=== PATIENT | female | born 1975 | race Caucasian/White ===

== ENCOUNTER → 2017-01-04 | Outpatient (CLI) | payer BC ==
--- NOTE | 2017-01-05 11:03 | MM ---
Reason for exam: screening (asymptomatic). Last mammogram was performed 1 year and 1 month ago. History: Took hormonal contraceptives for 1 year 6 months beginning at age 15. Physical Findings: A clinical breast exam by your physician is recommended on an annual basis and results should be correlated with mammographic findings. MG 3D Screening Mammo W/Cad Bilateral CC and MLO view(s) were taken. Prior study comparison: December 10, 2015, bilateral MG screening mammo w CAD. October 03, 2014, bilateral MG screening mammo w CAD. The breast tissue is heterogeneously dense. This may lower the sensitivity of mammography. There is no discrete abnormality. ASSESSMENT: Negative, BI-RAD 1 RECOMMENDATION: Routine screening mammogram of both breasts in 1 year.
== END | disposition home or self-care (01) ==
LOC: RADMAMWWP 09:25
PROVIDERS: ATTEND Obstetrics & Gynecology
DX: Z12.31 Encounter for screening mammogram for malignant neoplasm of breast (principal)
CPT/HCPCS: 77063; G0202

== ENCOUNTER → 2017-01-09 | Outpatient (CLI) | payer BC ==
--- NOTE | 2017-01-09 08:42 | MR ---
EXAMINATION TYPE: MR angio head wo con DATE OF EXAM: 01/09/2017 COMPARISON: NONE HISTORY: Moyamoya disease, syncope and collapse, headaches CONTRAST: None TECHNIQUE: Multiplanar multiecho imaging on a 3.0 Angela magnet is performed through the [place] of Jason lis. 3-D [id number] imaging is performed. Source images are reviewed on the computer in the axi al plane. Reconstructed images rotating on the computer are reviewed. FINDINGS: Vertebral arteries appear codominant. Vertebral basilar branching appears normal. There is some mild branching pattern of the left posterior cerebral artery. The right posterior cerebral artery is poorl y visualized. The more distal portions near the occipital region appear normal. The internal carotid arteries appear small. Left more so than the right. Ophthalmic arteries appear n ormal. The distal left internal carotid artery is not visualized. Small portion of the distal right i nternal carotid artery is present. There is small vessel branching pattern of the anterior cerebral v asculature along the base of the frontal lobes. The A2 segments visualized appear normal. Right dista l middle cerebral artery branches appear normal. Left middle cerebral artery branches are poorly visu alized. There is a puff of smoke appearance compatible with moyamoya disease in the base of the frontal lobes . Additionally, a small branching pattern at the left is posterior cerebral artery region near the ba benito ganglion is evident. A1 segments are not appreciated. A2 segments however appear normal. Proximal M1 segments are not visualized. Distal right M1 segment is poorly visualized. Distal left M1 segment is not visualized. There is a suggestion of some right superficial temporal artery prominence. Anterior and posterior communicating arteries are not identified. Three-D reconstructed images rotating on the computer are reviewed and demonstrate the attenuation of the [place] of Robertson vessels. IMPRESSIONS: 1. Attenuation of [place] of Robertson vessels especially through the internal carotid artery distributio n demonstrating a small vessel branching pattern, puff of smoke, typical for moyamoya disease.
--- NOTE | 2017-01-09 17:10 | MR ---
EXAMINATION TYPE: MR brain wo/w MRA neck wo/w con DATE OF EXAM: 01/09/2017 COMPARISON: NONE HISTORY: 41-year-old female with syncope and collapse, moyamoya disease. TECHNIQUE: Multiplanar, multisequence images of the brain and brainstem is performed without and with IV contras t, utilizing 20 mL mL intravenous MultiHance . Subsequent 2-D and 3-D [id number] imaging of the neck vasculature. Additional pre and postcontras t coronal sequences were acquired after 20 mL IV MultiHance administration. FINDINGS: BRAIN: Diffusion weighted images demonstrate no evidence of a recent infarct or other diffusion abnormality. There is no extra-axial fluid collection. T2/FLAIR weighted sequences show patchy in confluence deep white matter and subcortical bright signal down the bilateral frontal watershed zones, left greater than right. Additional chronic deep white m atter infarcts within the right jason radiata. Additional scattered foci of right white matter johnson e is present with a moderate overall burden. Encephalomalacia in the anterior left frontal lobe relat ed to prior infarct. Many of the flow voids are diminutive or not well-seen. The patient's MRA of the same day provides be tter evaluation of the intracranial vascularity. The ventricular system and cisternal spaces are normal in size and appearance. The brain volume is a ge appropriate. There is a extra-axial mass that shows T2 isointense signal but avid homogeneous postcontrast enhance ment along the left anterior clinoid and sphenoid process along the superior margin of the left gabrielle nous sinus. This measures 2.4 cm and demonstrates dural tails most suggestive of a meningioma. There is slight mass effect onto the adjacent brain parenchyma. No midline shift. No other abnormal intracr anial enhancement seen. Dural venous sinuses are patent. Midline structures demonstrate normal morphology. The craniocervical junction appears within normal limits. Trace mucosal thickening ethmoid air cells and right maxillary sinus. Leftward nasal septal deviation . Globes are intact. MRA NECK: There is conventional origin is a branching anatomy. The proximal arch appears aneurysmal at 4.2 cm. The origin of both vertebral arteries and the origin of the remaining arch vessels appear patent. The re is normal course and caliber of the vertebral arteries with codominant vessels. Both common carotid arteries are widely patent. There is minimal atherosclerotic irregularity in the proximal aspects of the bilateral carotid bulbs causing mild to moderate, approximately 50% vessel stenosis. This is best demonstrated on the postcon trast reconstructions. Of note, the bilateral ICAs are smaller in caliber than the vertebral arteries but otherwise remain grossly patent. COMBINED IMPRESSION: BRAIN: 1. A 2.4 cm avidly enhancing extra-axial mass along the left sphenoid process most suggestive of a me ningioma. There is slight mass effect onto the adjacent brain parenchyma. No midline shift. 2. Prior left greater than right frontal lobe watershed infarcts, focal left frontal lobe cortical in farct, deep white matter infarct on the right, and additional moderate scattered burden of chronic sm all vessel ischemic disease. 3. Diminutive flow voids. Intracranial vasculature is better described on the MRA of the same day. MRA NECK: 1. Compensatory enlargement of the bilateral vertebral arteries which are larger in caliber than the ICAs. 2. Borderline moderate, approximately 50% stenosis within the bilateral carotid bulbs is suggested, p articularly on the postcontrast reconstructions.
== END ==
LOC: RADMRIMAIN 06:37
PROVIDERS: ATTEND Psychiatry & Neurology Neurology
DX: G93.89 Other specified disorders of brain (principal); I63.9 Cerebral infarction, unspecified; I67.82 Cerebral ischemia; I65.23 Occlusion and stenosis of bilateral carotid arteries
CPT/HCPCS: 70544; 70549; 70553; A9577

== ENCOUNTER → 2018-01-26 | Outpatient (CLI) | payer BC ==
--- NOTE | 2018-01-30 12:42 | MM ---
Reason for exam: screening (asymptomatic). Last mammogram was performed 1 year and 1 month ago. History: Took hormonal contraceptives for 1 year 6 months beginning at age 15. Physical Findings: A clinical breast exam by your physician is recommended on an annual basis and results should be correlated with mammographic findings. MG 3D Screening Mammo W/Cad Bilateral CC and MLO view(s) were taken. Prior study comparison: January 04, 2017, bilateral MG 3d screening mammo w/cad. December 10, 2015, bilateral MG screening mammo w CAD. The breast tissue is heterogeneously dense. This may lower the sensitivity of mammography. No significant changes when compared with prior studies. ASSESSMENT: Benign, BI-RAD 2 RECOMMENDATION: Routine screening mammogram of both breasts in 1 year.
== END | disposition home or self-care (01) ==
LOC: RADMAMWWP 09:52
PROVIDERS: ATTEND Obstetrics & Gynecology
DX: Z12.31 Encounter for screening mammogram for malignant neoplasm of breast (principal)
CPT/HCPCS: 77063; 77067

== ENCOUNTER → 2018-08-27 | Outpatient (CLI) | payer BC ==
--- NOTE | 2018-08-27 10:49 | MR ---
EXAMINATION TYPE: MR brain wo/w con DATE OF EXAM: 08/27/2018 COMPARISON: Prior MRI brain January 09, 2017 HISTORY: Moyamoya disease / Meningioma TECHNIQUE: Multiplanar, multisequence images of the brain and brainstem is performed without and with IV contras t, utilizing 7 mL intravenous Gadavist . FINDINGS: Diffusion weighted images demonstrate no evidence of a recent infarct or other diffusion ab normality. There is no worrisome extra-axial fluid collection. The ventricular system and cisternal spaces are normal in size and appearance. The brain volume is age appropriate. There is redemonstra tion of multifocal areas of T2 hyperintensity throughout the white matter bilaterally. Subcortical ar ea left occipital lobe axial image 24 is redemonstrated. Area of old encephalomalacia left frontal lo be anteriorly near axial image 21 is redemonstrated. No significant change from prior study. Midline structures demonstrate normal morphology. The craniocervical junction appears within normal limits. Post contrast images redemonstrate extra-axial homogeneous enhancing left middle cranial fos sa mass measuring 2.3 x 1.5 cm adjacent to pituitary stalk with mass effect along the anterior medial margin of left temporal lobe axial image 10 corresponding to moderate size with hemangioma along sup erior margin of the cavernous sinus. No new enhancing lesions are seen. Right frontal evans hole suspe cted axial image 18 with artifact and enhancement . Diminutive carotid arteries bilaterally are redem onstrated The dural venous sinuses appear patent. Leftward nasal septal deviation redemonstrated. The re is new patchy fluid signal right mastoid air cells. There is new moderate to severe mucosal thicke enzo with patchy fluid left maxillary sinus. Mild mucosal thickening involving ethmoid sinuses bilate rally is again seen. IMPRESSION: Stable 2.3 cm left sphenoid process meningioma with local mass effect. Stable moderate no nspecific white matter changes favor product of chronic small vessel ischemic change including old in farct left frontal lobe. Suspect moyamoya disease with diminutive size to bilateral internal carotid arteries redemonstrated. New paranasal sinus disease otherwise no significant change from prior MRI.
== END | disposition home or self-care (01) ==
LOC: RADMRIMAIN 09:39
PROVIDERS: ATTEND Psychiatry & Neurology Neurology
DX: D32.9 Benign neoplasm of meninges, unspecified (principal); R90.89 Other abnormal findings on diagnostic imaging of central nervous system; Z86.73 Personal history of transient ischemic attack (TIA), and cerebral infarction without residual deficits
CPT/HCPCS: 70553; A9585

== ENCOUNTER → 2018-09-28 | Day surgery (SDC) | payer BC ==
[~2018-09-28] MED LIST: GLUCAGON 1 MG/ML VIAL IM STA
[2018-09-28 09:23] VITALS: BP 140/69; PULSE 70; RESP 20; TEMP 97.8
--- NOTE | 2018-09-28 11:46 | MR ---
EXAMINATION TYPE: MR Enterography DATE OF EXAM: 09/28/2018 COMPARISON: None HISTORY: Crohn's disease of small intestine CONTRAST: Standard multiplanar, multisequence imaging of the abdomen is performed without and with IV contrast, patient is injected with 7 mL intravenous Gadavist gadolinium contrast. Oral Volumen, Volumen and Wa ter was given as per enterography protocol. FINDINGS: Bowel: There is good distention of stomach without suspicious wall thickening or mural enhancement. D uodenal sweep show satisfactory distention without suspicious eccentric wall thickening or enhancemen t. There is less than optimal distention of small bowel loops without obvious eccentric wall thickeni ng or enhancement. Cecum is in normal position in the right lower quadrant. There is mild to moderate concentric wall thickening involving terminal ileum without suspicious eccentric enhancement to sugg est acute inflammation. There is mild prominence of the distal ileum in the right pelvis just proxima l to this suggesting perhaps mild stricturing. Colon shows no suspicious eccentric wall thickening. Other: Lung bases are clear. Gallbladder is not identified and presumed surgically absent. No biliary dilatation is present. The liver, spleen, pancreas, and both adrenal glands are normal in size. Susp ected small splenule medial to the posterior spleen axial image 35 series 301. There is no concerning renal mass or hydronephrosis. Anteverted uterus is present. Some cystic changes present in the endom etrium without definitive eccentric thickening greater than 12 mm to suggest adenomyosis. Left ovary has a 3.3 cm simple appearing thin-walled cyst. Osseous structures are intact. IMPRESSION: 1. Evidence of chronic inflammation at level of the terminal ileum. No acute enterocolitis identified . 2. Incidental 3.3 cm simple appearing thin-walled left ovarian cyst.
== END ==
LOC: RADMRIMAIN 09:14
PROVIDERS: ATTEND Internal Medicine Gastroenterology
DX: K50.00 Crohn's disease of small intestine without complications (principal); N83.292 Other ovarian cyst, left side
CPT/HCPCS: 96372; 72197; 74183; J1610; A9585

== ENCOUNTER → 2019-03-05 | Outpatient (CLI) | payer BC ==
--- NOTE | 2019-03-07 14:48 | MM ---
Reason for exam: screening (asymptomatic). Last mammogram was performed 1 year and 1 month ago. History: Took hormonal contraceptives for 1 year 6 months beginning at age 15. Physical Findings: A clinical breast exam by your physician is recommended on an annual basis and results should be correlated with mammographic findings. MG 3D Screening Mammo W/Cad Bilateral CC and MLO view(s) were taken. Prior study comparison: January 26, 2018, bilateral MG 3d screening mammo w/cad. January 04, 2017, bilateral MG 3d screening mammo w/cad. The breast tissue is heterogeneously dense. This may lower the sensitivity of mammography. No suspicious abnormality. No significant changes when compared with prior studies. ASSESSMENT: Negative, BI-RAD 1 RECOMMENDATION: Routine screening mammogram of both breasts in 1 year.
== END | disposition home or self-care (01) ==
LOC: RADMAMWWP 09:13
PROVIDERS: ATTEND Obstetrics & Gynecology
DX: Z12.31 Encounter for screening mammogram for malignant neoplasm of breast (principal)
CPT/HCPCS: 77063; 77067

== ENCOUNTER → 2020-08-12 | Outpatient (CLI) | payer BC ==
--- NOTE | 2020-08-17 10:02 | MM ---
Reason for exam: screening (asymptomatic). Last mammogram was performed 1 year and 5 months ago. History: Patient is postmenopausal. Took hormonal contraceptives for 1 year 6 months beginning at age 15. Physical Findings: A clinical breast exam by your physician is recommended on an annual basis and results should be correlated with mammographic findings. MG 3D Screening Mammo W/Cad Bilateral CC, MLO, and XCCL view(s) were taken. Prior study comparison: March 05, 2019, bilateral MG 3d screening mammo w/cad. January 26, 2018, bilateral MG 3d screening mammo w/cad. The breast tissue is heterogeneously dense. This may lower the sensitivity of mammography. No significant changes when compared with prior studies. ASSESSMENT: Negative, BI-RAD 1 RECOMMENDATION: Routine screening mammogram of both breasts in 1 year.
== END | disposition home or self-care (01) ==
LOC: RADMAMWWP 16:18
PROVIDERS: ATTEND Obstetrics & Gynecology
DX: Z12.31 Encounter for screening mammogram for malignant neoplasm of breast (principal)
CPT/HCPCS: 77063; 77067

== ENCOUNTER → 2020-10-12 | Outpatient (CLI) | payer BC ==
[2020-10-12 14:46] LABS: Basophils # (A) 0.01 X 10*3/uL (0.00-0.10); Basophils % (A) 0.1 %; Eosinophils # (A) 0 X 10*3/uL (0.04-0.35); Eosinophils % (A) 0 %; HCT 41.5 % (37.2-46.3); HGB 13.4 g/dL (12.0-15.0); Lymphocytes # (A) 2.05 X 10*3/uL (0.90-5.00); Lymphocytes % (A) 19.7 %; MCH 31.8 pg (27.0-32.0); MCHC 32.3 g/dL (32.0-37.0); MCV 98.3 fL (80.0-97.0); Mean Platelet Volume 10.5 fL (9.5-12.2); Monocytes # (A) 0.84 X 10*3/uL (0.20-1.00); Monocytes % (A) 8.1 %; Neutrophils # (A) 7.48 X 10*3/uL (1.80-7.70); Neutrophils % (A) 71.8 %; Platelet Count 204 X 10*3/uL (140-440); RBC 4.22 X 10*6/uL (4.10-5.20); RDW 12.2 % (11.5-14.5); WBC 10.41 X 10*3/uL (4.50-10.00)
[2020-10-12 16:19] LABS: African American GFR (CKD) 88.2 (60.0-200.0); Albumin/Globulin Ratio 1.74 (1.60-3.17); Anion Gap 6.8 mmol/L (4.00-12.00); BUN/Creat Ratio 17.78 Ratio (12.00-20.00); Calcium 8.9 mg/dL (8.7-10.3); Carbon Dioxide 30.2 mmol/L (21.6-31.8); Chol/HDL Ratio 3.34; Globulin 2.3 g/dL (1.6-3.3); LDL Cholesterol,Calculated 136.8 mg/dL (0.0-131.0); Non-African American GFR(CKD) 76.1 (60.0-200.0); Potassium 4.4 mmol/L (3.5-5.5); Total Bilirubin 0.7 mg/dL (0.3-1.2); Total Protein 6.3 g/dL (6.2-8.2); VLDL Calculation 43.2 mg/dL (5.00-40.00)
== END | disposition home or self-care (01) ==
LOC: LABWHC1 08:50
PROVIDERS: ATTEND Family Medicine
DX: Z00.00 Encounter for general adult medical examination without abnormal findings (principal)
CPT/HCPCS: 36415; 80053; 80061; 85025

== ENCOUNTER 2021-06-27 11:21 | Inpatient (IN) | payer BC ==
[2021-06-27] MEDS ORDERED: SODIUM CHLORIDE 0.9% 1,000 ML IV STA (12:20)
[2021-06-27] MEDS ORDERED: ONDANSETRON 4 MG/2 ML VIAL IVP STA (12:20)
[2021-06-27] MEDS ORDERED: HYDROmorphone 1 MG/ML 1 ML SYRINGE IVP STA (12:20)
--- NOTE | 2021-06-27 12:47 | ED ---
Abdominal Pain HPI - General Chief Complaint: Abdominal Pain Stated Complaint: Abd. Pain Time Seen by Provider: 06/27/21 12:00 Source: patient Mode of arrival: wheelchair Limitations: no limitations - History of Present Illness Initial Comments: 46-year-old female past medical history of Crohn's since emergency room with reported abdominal pain, nausea the past 12 hours. Reports to generalized abdominal cramping with nausea. Has been unable to hold down any food for the past 24 hours. She takes Pentasa 4 times daily without any missed doses. Den ies taking any additional medications for her symptoms. Continues to have bowel movements which are normal in color and consistency for her. No rectal bleeding. Denies any fevers. Patient follows with Dr. Allison. Reports last hospitalization was a year ago. Has not had a colonoscopy and several years. Patient is status post cholecystectomy. Denies any colonic resections. Denies vomiting. No concern for . No abnormal vaginal bleeding or discharge. Continues to make some urine. No other alleviating, precipitating factors - Related Data Home Medications Medication Instructions Recorded Confirmed Gabapentin [Neurontin] 100 mg PO TID 06/27/21 06/27/21 Mesalamine [Pentasa] 1,000 mg PO QID 06/27/21 06/27/21 Montelukast [Singulair] 10 mg PO HS 06/27/21 06/27/21 Venlafaxine HCl ER [Effexor Xr] 150 mg PO DAILY 06/27/21 06/27/21 Allergies Allergy/AdvReac Type Severity Reaction Status Date / Time No Known Allergies Allergy Verified 06/27/21 12:25 Review of Systems ROS Statement: Those systems with pertinent positive or pertinent negative responses have been documented in the HPI. ROS Other: All systems not noted in ROS Statement are negative. Past Medical History Additional Past Medical History / Comment(s): crohns, anemia History of Any Multi-Drug Resistant Organisms: None Reported Past Surgical History: Cholecystectomy Past Psychological History: No Psychological Hx Reported Smoking Status: Former smoker Past Alcohol Use History: Occasional Past Drug Use History: None Reported General Exam Limitations: no limitations General appearance: alert, in no apparent distress Head exam: Present: atraumatic, normocephalic, normal inspection Eye exam: Present: normal appearance, PERRL, EOMI. Absent: scleral icterus, c onjunctival injection, periorbital swelling ENT exam: Present: normal exam, mucous membranes moist Neck exam: Present: normal inspection. Absent: tenderness, meningismus, lymphadenopathy Respiratory exam: Present: normal lung sounds bilaterally. Absent: respiratory distress, wheezes, rales, rhonchi, stridor Cardiovascular Exam: Present: regular rate, normal rhythm, normal heart sounds. Absent: systolic murmur, diastolic murmur, rubs, gallop, clicks GI/Abdominal exam: Present: distended, tenderness (Diffuse), diminished bowel sounds. Absent: guarding, rebound, rigid Extremities exam: Present: normal inspection, full ROM, normal capillary refill. Absent: tenderness, pedal edema, joint swelling, calf tenderness Back exam: Present: normal inspection Neurological exam: Present: alert, oriented X3, CN II-XII intact Psychiatric exam: Present: normal affect, normal mood Skin exam: Present: warm, dry, intact, normal color. Absent: rash Course Vital Signs 06/27/21 11:57 Temperature 97.1 F L Pulse Rate 82 Respiratory 16 Rate Blood Pressure 134/90 O2 Sat by Pulse 98 Oximetry Medical Decision Making - Medical Decision Making Upon arrival patient is placed in room 21. A thorough history and physical exam is performed. IV access established the patient is given a liter bolus of normal saline, 4 mg of Zofran and 1 mg of Dilaudid. Laboratory studies were conducted patient has a white count of 18.2. CT demonstrates diffuse, moderate dilation of the small bowel measuring up to 3.2 cm with a small amount of free fluid in the pelvis. Several areas of stricturing and at least one focal adhesion of the distal small bowel which represents sequelae of inflammatory bowel disease. Called and spoke with Dr. Bradshaw in regards to the patient's. NG tube will be placed. Patient given a dose of Zosyn. She'll be a dmitted to medicine service with surgery and GI on consult. Patient remained in stable condition and agreed to treatment plan - Lab Data Result diagrams: 06/27/21 12:32 06/27/21 12:32 Lab Results 06/27/21 06/27/21 06/27/21 Range/Units 12:32 12:32 12:32 WBC 18.2 H (3.8-10.6) k/uL RBC 4.70 (3.80-5.40) m/uL Hgb 15.3 (11.4-16.0) gm/dL Hct 46.7 H (34.0-46.0) % MCV 99.5 (80.0-100.0) fL MCH 32.5 (25.0-35.0) pg MCHC 32.7 (31.0-37.0) g/dL RDW 12.5 (11.5-15.5) % Plt Count 347 (150-450) k/uL MPV 7.7 Neutrophils % 94 % Lymphocytes % 2 % Monocytes % 3 % Eosinophils % 0 % Basophils % 0 % Neutrophils # 17.2 H (1.3-7.7) k/uL Lymphocytes # 0.4 L (1.0-4.8) k/uL Monocytes # 0.5 (0-1.0) k/uL Eosinophils # 0.1 (0-0.7) k/uL Basophils # 0.0 (0-0.2) k/uL Sodium 138 (137-145) mmol/L Potassium 4.7 (3.5-5.1) mmol/L Chloride 104 (98-107) mmol/L Carbon Dioxide 25 (22-30) mmol/L Anion Gap 9 mmol/L BUN 16 (7-17) mg/dL Creatinine 0.88 (0.52-1.04) mg/dL Est GFR (CKD-EPI)AfAm >90 (>60 ml/min/1.73 sqM) Est GFR (CKD-EPI)NonAf 78 (>60 ml/min/1.73 sqM) Glucose 168 H (74-99) mg/dL Plasma Lactic Acid Edin (0.7-2.0) mmol/L Calcium 9.8 (8.4-10.2) mg/dL Total Bilirubin 0.8 (0.2-1.3) mg/dL AST 47 H (14-36) U/L ALT 47 H (4-34) U/L Alkaline Phosphatase 127 H (38-126) U/L Total Protein 7.9 (6.3-8.2) g/dL Albumin 4.4 (3.5-5.0) g/dL Lipase 236 (23-300) U/L Urine Color Yellow Urine Appearance Cloudy H (Clear) Urine pH 6.0 (5.0-8.0) Ur Specific Hawley 1.038 H (1.001-1.035) Urine Protein 2+ H (Negative) Urine Glucose (UA) Negative (Negative) Urine Ketones Negative (Negative) Urine Blood Trace H (Negative) Urine Nitrite Negative (Negative) Urine Bilirubin Negative (Negative) Urine Urobilinogen 2.0 (<2.0) mg/dL Ur Leukocyte Esterase Negative (Negative) Urine RBC 7 H (0-5) /hpf Urine WBC 6 H (0-5) /hpf Ur Squamous Epith Cells 8 H (0-4) /hpf Amorphous Sediment Rare H (None) /hpf Urine Mucus Many H (None) /hpf 06/27/21 Range/Units 12:32 WBC (3.8-10.6) k/uL RBC (3.80-5.40) m/uL Hgb (11.4-16.0) gm/dL Hct (34.0-46.0) % MCV (80.0-100.0) fL MCH (25.0-35.0) pg MCHC (31.0-37.0) g/dL RDW (11.5-15.5) % Plt Count (150-450) k/uL MPV Neutrophils % % Lymphocytes % % Monocytes % % Eosinophils % % Basophils % % Neutrophils # (1.3-7.7) k/uL Lymphocytes # (1.0-4.8) k/uL Monocytes # (0-1.0) k/uL Eosinophils # (0-0.7) k/uL Basophils # (0-0.2) k/uL Sodium (137-145) mmol/L Potassium (3.5-5.1) mmol/L Chloride (98-107) mmol/L Carbon Dioxide (22-30) mmol/L Anion Gap mmol/L BUN (7-17) mg/dL Creatinine (0.52-1.04) mg/dL Est GFR (CKD-EPI)AfAm (>60 ml/min/1.73 sqM) Est GFR (CKD-EPI)NonAf (>60 ml/min/1.73 sqM) Glucose (74-99) mg/dL Plasma Lactic Acid Edin 1.6 (0.7-2.0) mmol/L Calcium (8.4-10.2) mg/dL Total Bilirubin (0.2-1.3) mg/dL AST (14-36) U/L ALT (4-34) U/L Alkaline Phosphatase (38-126) U/L Total Protein (6.3-8.2) g/dL Albumin (3.5-5.0) g/dL Lipase (23-300) U/L Urine Color Urine Appearance (Clear) Urine pH (5.0-8.0) Ur Specific Hawley (1.001-1.035) Urine Protein (Negative) Urine Glucose (UA) (Negative) Urine Ketones (Negative) Urine Blood (Negative) Urine Nitrite (Negative) Urine Bilirubin (Negative) Urine Urobilinogen (<2.0) mg/dL Ur Leukocyte Esterase (Negative) Urine RBC (0-5) /hpf Urine WBC (0-5) /hpf Ur Squamous Epith Cells (0-4) /hpf Amorphous Sediment (None) /hpf Urine Mucus (None) /hpf Disposition Clinical Impression: Abdominal pain, Small bowel obstruction, Leukocytosis Disposition: ADMITTED IP TO THIS [facility] Condition: Stable Is patient prescribed a controlled substance at d/c from ED?: No Referrals: Irving Kebede [Primary Care Provider] - 1-2 days Decision to Admit Reason: Admit from EC Decision Date: 06/27/21 Decision Time: 13:50
[2021-06-27 12:48] LABS: Basophils % (A) 0 %; Eosinophils # (A) 0.1 k/uL (0-0.7); Eosinophils % (A) 0 %; HCT 46.7 % (34.0-46.0); HGB 15.3 gm/dL (11.4-16.0); Lymphocytes # (A) 0.4 k/uL (1.0-4.8); Lymphocytes % (A) 2 %; MCH 32.5 pg (25.0-35.0); MCHC 32.7 g/dL (31.0-37.0); MCV 99.5 fL (80.0-100.0); Mean Platelet Volume 7.7; Monocytes # (A) 0.5 k/uL (0-1.0); Monocytes % (A) 3 %; Neutrophils # (A) 17.2 k/uL (1.3-7.7); Neutrophils % (A) 94 %; Platelet Count 347 k/uL (150-450); RDW 12.5 % (11.5-15.5); WBC 18.2 k/uL (3.8-10.6)
[2021-06-27 12:57] LABS: ALT 47 U/L (4-34); AST 47 U/L (14-36); African American GFR (CKD) >90 (>60 ml/min/1.73 sqM); Albumin 4.4 g/dL (3.5-5.0); Alkaline Phosphatase 127 U/L (38-126); Anion Gap 9 mmol/L; Blood Urea Nitrogen 16 mg/dL (7-17); Calcium 9.8 mg/dL (8.4-10.2); Carbon Dioxide 25 mmol/L (22-30); Chloride 104 mmol/L (98-107); Glucose 168 mg/dL (74-99); Lipase 236 U/L (23-300); Non-African American GFR(CKD) 78 (>60 ml/min/1.73 sqM); Potassium 4.7 mmol/L (3.5-5.1); Sodium 138 mmol/L (137-145); Total Bilirubin 0.8 mg/dL (0.2-1.3); Total Protein 7.9 g/dL (6.3-8.2)
[2021-06-27 13:17] LABS: Amorphous Sediment,Urine Rare /hpf; Appearance,Urine Cloudy (Clear); Bilirubin,Urine Negative (Negative); Blood,Urine Trace (Negative); Color,Urine Yellow; Glucose,Urine (UA) Negative (Negative); Ketones,Urine Negative (Negative); Leukocyte Esterase,Urine Negative (Negative); Mucus,Urine Many /hpf; Nitrite,Urine Negative (Negative); Protein,Urine 2+ (Negative); RBC,Urine 7 /hpf (0-5); Specific Gravity,Urine 1.038 (1.001-1.035); Squamous Epithelial Cell,Urine 8 /hpf (0-4); WBC,Urine 6 /hpf (0-5)
--- NOTE | 2021-06-27 13:23 | CT ---
EXAMINATION TYPE: CT abdomen pelvis w con DATE OF EXAM: 06/27/2021 COMPARISON: MR enterography 09/28/2018 HISTORY: Generalized abd pain, more epigastric CT DLP: 845.9 mGycm Automated exposure control for dose reduction was used. TECHNIQUE: Helical acquisition of images was performed from the lung bases through the pelvis. CONTRAST: Performed without Oral Contrast and with IV Contrast, patient injected with 100 mL of Isovue 300. FINDINGS: LUNG BASES: No significant abnormality is appreciated. LIVER/GB: No significant abnormality is appreciated. Cholecystectomy. PANCREAS: No significant abnormality is seen. SPLEEN: No significant abnormality is seen. Splenules. ADRENALS: No significant abnormality is seen. KIDNEYS: No significant abnormality is seen. FREE AIR: No free air is visualized. RETROPERITONEAL ADENOPATHY: None visualized REPRODUCTIVE ORGANS: No significant abnormality is seen URINARY BLADDER: No significant abnormality is seen. PELVIC ADENOPATHY: None visualized. OSSEOUS STRUCTURES: No significant abnormality is seen. BOWEL: There is diffuse, predominantly fluid-filled, mild dilatation of the small bowel measuring up to 3.2 cm. A few foci of irregular narrowing of distal ileum just suggest stricturing. There is suggestion of a focal adhesion between the terminal ileum and a more proximal loop of small bowel in the in the right lower quadrant (series 2 image 55 of 91). There is wall thickening of the t erminal ileum. Nondilated large bowel. OTHER: None IMPRESSION: 1. DIFFUSE, MODERATE DILATATION OF THE SMALL BOWEL MEASURING UP TO 3.2 CM. WITH A SMALL AMOUNT OF FR EE FLUID IN THE PELVIS. 2. SEVERAL AREAS OF STRICTURING AND AT LEAST ONE FOCAL ADHESION OF THE DISTAL SMALL BOWEL WHICH REPR ESENT SEQUELA OF INFLAMMATORY BOWEL DISEASE.
[2021-06-27] MEDS ORDERED: NALOXONE 0.4 MG/ML 1 ML VIAL IV PRN (13:50)
[2021-06-27] MEDS ORDERED: methylPREDNISolone SOD SUCCI 125 MG/2 ML VIAL IV STA (13:54)
--- NOTE | 2021-06-27 14:31 | P.HPIM ---
History of Present Illness H&P Date: 06/27/21 Chief Complaint: CC: Abdominal pain Patient is a 38-year-old female with a past medical history of Crohn's disease, iron deficiency anemia, asthma who presents to the ED with diffuse abdominal pain that started 1 day ago after she ate her breakfast. Patient states that it is associated with nausea and has not been eating much since yesterday. She says that nothing makes it better or worse. She states that last night she couldn't sleep because of the abdominal pain which made her come to the ED today. Patient also stated that she is having some chills but denies any fevers. Patient states that she did have a small bowel movement just prior to coming to the ED. In the ED patient was found to have diffuse small bowel dilation with multiple strictures and one possible adhesion in the distal small bowel. Patient also had elevated WBC. General surgery was contacted who recommended NG tube. When I went to go see the patient she had just received IV morphine which she states has helped improve her pain slightly. Patient states that her last Crohn's flareup was about 2 years ago. Patient states that she is compliant with her medications. Review of Systems 10 ROS reviewed and are negative except as noted in HPI Past Medical History Additional Past Medical History / Comment(s): crohns, anemia History of Any Multi-Drug Resistant Organisms: None Reported Past Surgical History: Cholecystectomy Past Psychological History: No Psychological Hx Reported Smoking Status: Former smoker Past Alcohol Use History: Occasional Past Drug Use History: None Reported Medications and Allergies Home Medications Medication Instructions Recorded Confirmed Type Aspirin EC [Ecotrin Low Dose] 81 mg PO DAILY 06/27/21 06/27/21 History Calcium 600mg (Chewable) 600 mg PO DAILY 06/27/21 06/27/21 History Cholecalciferol [Vitamin D3 (25 50 mcg PO BID 06/27/21 06/27/21 History Mcg = 1000 Iu)] Cyanocobalamin (Vitamin B-12) 1,000 mcg PO DAILY 06/27/21 06/27/21 History [Vitamin B-12] Ferrous Sulfate [Feosol] 325 mg PO TID 06/27/21 06/27/21 History Gabapentin [Neurontin] 100 mg PO TID 06/27/21 06/27/21 History Mesalamine [Pentasa] 1,000 mg PO QID 06/27/21 06/27/21 History Montelukast [Singulair] 10 mg PO HS 06/27/21 06/27/21 History Multivitamin (Chewable) 1 tab PO DAILY 06/27/21 06/27/21 History Venlafaxine HCl ER [Effexor Xr] 150 mg PO DAILY 06/27/21 06/27/21 History Allergies Allergy/AdvReac Type Severity Reaction Status Date / Time No Known Allergies Allergy Verified 06/27/21 12:25 Physical Exam Osteopathic Statement: *. No significant issues noted on an osteopathic structural exam other than those noted in the History and Physical/Consult. Vitals: Vital Signs Temp Pulse Resp BP Pulse Ox 06/27/21 11:57 97.1 F L 82 16 134/90 98 Intake and Output 06/26/21 06/27/21 06/27/21 22:59 06:59 14:59 Other: Voiding Method Toilet Weight 71.668 kg General: [Alert and oriented, well nourished, no acute distress]. Eye: [PERRL, EOMI, normal conjunctiva]. HENT: [Normocephalic, clear tympanic membranes, normal hearing, moist oral mucosa, no scleral icterus, no sinus tenderness]. Neck: [Supple, non-tender, no carotid bruits, no JVD, no lymphadenopathy]. Lungs: [Clear to auscultation and percussion, non-labored respiration]. Heart: [Normal rate, regular rhythm, no murmur, gallop or edema]. Abdomen: [Diminished bowel sounds, diffuse tenderness to palpate]. Musculoskeletal: [Normal range of motion and strength, no tenderness or swelling]. Skin: [Skin is warm, dry and pink, no rashes or lesions]. Neurologic: [Awake, alert, and oriented X3, CN II-XII intact]. Psychiatric: [Cooperative, appropriate mood and affect]. Results CBC & Chem 7: 06/27/21 12:32 06/27/21 12:32 Labs: Abnormal Lab Results - Last 24 Hours (Table) 06/27/21 06/27/21 06/27/21 Range/Units 12:32 12:32 12:32 WBC 18.2 H (3.8-10.6) k/uL Hct 46.7 H (34.0-46.0) % Neutrophils # 17.2 H (1.3-7.7) k/uL Lymphocytes # 0.4 L (1.0-4.8) k/uL Glucose 168 H (74-99) mg/dL AST 47 H (14-36) U/L ALT 47 H (4-34) U/L Alkaline Phosphatase 127 H (38-126) U/L Urine Appearance Cloudy H (Clear) Ur Specific [place] 1.038 H (1.001-1.035) Urine Protein 2+ H (Negative) Urine Blood Trace H (Negative) Urine RBC 7 H (0-5) /hpf Urine WBC 6 H (0-5) /hpf Ur Squamous Epith Cells 8 H (0-4) /hpf Amorphous Sediment Rare H (None) /hpf Urine Mucus Many H (None) /hpf Assessment and Plan Assessment: #Acute Crohn's exacerbation with small bowel obstruction -We'll start patient on IV Solu-Medrol 60 mg every 6 hours -Since patient complaining of chills and WBC elevated will start patient on IV Zosyn -We'll obtain blood culture -Place NG tube -Nothing by mouth, IV fluids -Consult general surgery and GI -Check CRP and sed rate #Iron deficiency anemia -Hold iron supplements in the setting of bowel obstruction -Hemoglobin stable with no overt signs of bleeding #Hyperglycemia likely reactive -Check hemoglobin A1c -Sliding-scale insulin #Asthma -Stable CODE STATUS:full code DVT prophylaxis: Subcu heparin Discussed with: Patient, ER, rn Anticipated length of stay > than [address]: home A total of 75 minutes was spent on the care of this complex patient more than 50% of the time was spent in counseling and care coordination.
[2021-06-27] MEDS: SODIUM CHLORIDE 0.9% 1,000 ML IV SCH ×2 (14:37→22:36)
--- NOTE | 2021-06-27 16:25 | P.GSCN ---
History of Present Illness Consult date: 06/27/21 Reason for Consult: Abdominal pain, history of Crohn's disease, suspected small bowel obstruction seen on CT History of present illness: Patient is a 46-year-old lady who presents to the [facility] emergency department on 06/27/2021 with chief complaints of an abrupt onset of upper abdominal and diffuse cramping, sometimes burning pain that started yesterday evening and has grown progressively worse into today. She's had associated nausea without emesis and subjective chills. She denies fevers. Most recent bowel movement was this morning, described as normal, admits to flatus today. No issues with urination. She had similar symptoms associated with an acute Crohn's flare some 2 or more years ago. She tells me she was admitted to the hospital was treated medically and did not require surgery. She follows with Dr. Allison, tells me she was last seen around 6 months ago. She is maintained on oral Pentasa, has not been on immunomodulators or anti-TNF agents. Most recent colonoscopy was around 2 years ago and she tells me that there were no significant findings, she underwent EGD more remotely and recalls no findings of concern. Surgical history is significant only for cholecystectomy, no previous bowel resection. Patient's had modest improvement in pain with IV medications in the ER. Nasogastric tube was just placed for decompression. Computed tomography scan of the abdomen and pelvis was obtained, images and report were reviewed. There is uniform distention of the small bowel up to around 3-3.5 cm and digastric distention as well. Small bowel has a hypervascular appearance and there are multiple areas of relative bowel wall thickening and a few discrete areas of stricture. There is a more tight st ricture apparent towards the terminal ileum and there may be adjacent adhesion to small bowel seen. There is stool seen throughout the descending colon and distal transverse and relative decompression beyond the splenic flexure. There is trace free fluid in the pelvis. Laboratory studies disclosed a white blood cell count of 18.2, hemoglobin of 15.3, platelet count of 347. MCV and MCH indices are within normal limits, RDW normal range at 12.5. She is maintained on iron supplementation on an outpatient basis. Serum electrolyte analysis is unimpressive aside from a elevated glucose of 168. Liver function studies are trivially elevated with an AST and a LT of 47, alkaline phosphatase of 127, total bilirubin normal range at 0.8. Lipase normal range at 236, albumin acceptable at 4.4. Urinalysis does not disclose UTI. Covid screen negative. Review of Systems All systems: negative - Constitutional Reports as per HPI Past Medical History Additional Past Medical History / Comment(s): crohns, anemia History of Any Multi-Drug Resistant Organisms: None Reported Past Surgical History: Cholecystectomy Past Psychological History: No Psychological Hx Reported Smoking Status: Former smoker Past Alcohol Use History: Occasional Past Drug Use History: None Reported Medications and Allergies Home Medications Medication Instructions Recorded Confirmed Type Aspirin EC [Ecotrin Low Dose] 81 mg PO DAILY 06/27/21 06/27/21 History Calcium 600mg (Chewable) 600 mg PO DAILY 06/27/21 06/27/21 History Cholecalciferol [Vitamin D3 (25 50 mcg PO BID 06/27/21 06/27/21 History Mcg = 1000 Iu)] Cyanocobalamin (Vitamin B-12) 1,000 mcg PO DAILY 06/27/21 06/27/21 History [Vitamin B-12] Ferrous Sulfate [Feosol] 325 mg PO TID 06/27/21 06/27/21 History Gabapentin [Neurontin] 100 mg PO TID 06/27/21 06/27/21 History Mesalamine [Pentasa] 1,000 mg PO QID 06/27/21 06/27/21 History Montelukast [Singulair] 10 mg PO HS 06/27/21 06/27/21 History Multivitamin (Chewable) 1 tab PO DAILY 06/27/21 06/27/21 History Venlafaxine HCl ER [Effexor Xr] 150 mg PO DAILY 06/27/21 06/27/21 History Allergies Allergy/AdvReac Type Severity Reaction Status Date / Time No Known Allergies Allergy Verified 06/27/21 12:25 Surgical - Exam Osteopathic Statement: *. No significant issues noted on an osteopathic s tructural exam other than those noted in the History and Physical/Consult. Vital Signs Temp Pulse Resp BP Pulse Ox 97.1 F L 82 16 134/90 98 06/27/21 11:57 06/27/21 11:57 06/27/21 11:57 06/27/21 11:57 06/27/21 11:57 There is moderate distention without tympany, abdomen is otherwise soft. Very mild upper abdominal tenderness to palpation. No guarding or rebound. No evidence of ventral hernia, no clinical signs of jaundice. No evidence of peritonitis. - General well developed, well nourished, no distress, no pain - Eyes PERRL, normal ocular movement - ENT normal pinna, normal nares - Respiratory normal expansion, normal respiratory effort, clear to auscultation - Cardiovascular Rhythm: regular - Abdomen Abdomen: soft, distended Results - Labs 06/27/21 12:32 06/27/21 12:32 Abnormal Lab Results - Last 24 Hours (Table) 06/27/21 06/27/21 06/27/21 Range/Units 12:32 12:32 12:32 WBC 18.2 H (3.8-10.6) k/uL Hct 46.7 H (34.0-46.0) % Neutrophils # 17.2 H (1.3-7.7) k/uL Lymphocytes # 0.4 L (1.0-4.8) k/uL Glucose 168 H (74-99) mg/dL AST 47 H (14-36) U/L ALT 47 H (4-34) U/L Alkaline Phosphatase 127 H (38-126) U/L Urine Appearance Cloudy H (Clear) Ur Specific [place] 1.038 H (1.001-1.035) Urine Protein 2+ H (Negative) Urine Blood Trace H (Negative) Urine RBC 7 H (0-5) /hpf Urine WBC 6 H (0-5) /hpf Ur Squamous Epith Cells 8 H (0-4) /hpf Amorphous Sediment Rare H (None) /hpf Urine Mucus Many H (None) /hpf Diabetes panel 06/27/21 Range/Units 12:32 Sodium 138 (137-145) mmol/L Potassium 4.7 (3.5-5.1) mmol/L Chloride 104 (98-107) mmol/L Carbon Dioxide 25 (22-30) mmol/L BUN 16 (7-17) mg/dL Creatinine 0.88 (0.52-1.04) mg/dL Glucose 168 H (74-99) mg/dL Calcium 9.8 (8.4-10.2) mg/dL AST 47 H (14-36) U/L ALT 47 H (4-34) U/L Alkaline Phosphatase 127 H (38-126) U/L Total Protein 7.9 (6.3-8.2) g/dL Albumin 4.4 (3.5-5.0) g/dL Calcium panel 06/27/21 Range/Units 12:32 Calcium 9.8 (8.4-10.2) mg/dL Albumin 4.4 (3.5-5.0) g/dL Pituitary panel 06/27/21 Range/Units 12:32 Sodium 138 (137-145) mmol/L Potassium 4.7 (3.5-5.1) mmol/L Chloride 104 (98-107) mmol/L Carbon Dioxide 25 (22-30) mmol/L BUN 16 (7-17) mg/dL Creatinine 0.88 (0.52-1.04) mg/dL Glucose 168 H (74-99) mg/dL Calcium 9.8 (8.4-10.2) mg/dL Adrenal panel 06/27/21 Range/Units 12:32 Sodium 138 (137-145) mmol/L Potassium 4.7 (3.5-5.1) mmol/L Chloride 104 (98-107) mmol/L Carbon Dioxide 25 (22-30) mmol/L BUN 16 (7-17) mg/dL Creatinine 0.88 (0.52-1.04) mg/dL Glucose 168 H (74-99) mg/dL Calcium 9.8 (8.4-10.2) mg/dL Total Bilirubin 0.8 (0.2-1.3) mg/dL AST 47 H (14-36) U/L ALT 47 H (4-34) U/L Alkaline Phosphatase 127 H (38-126) U/L Total Protein 7.9 (6.3-8.2) g/dL Albumin 4.4 (3.5-5.0) g/dL Assessment and Plan Assessment: 46-year-old lady with apparent high-grade partial obstruction demonstrated on CT with changes consistent with long-standing Crohn's disease and multiple areas of stricture. More obstructive stricture seen towards the terminal ileum, no clinical signs of peritonitis, no evidence of perforation seen. No objective signs of sepsis. Maintained on Pentasa on an outpatient basis. Plan: Will start with nonoperative management with bowel rest, nasogastric decompression, IV fluids. I suspect her leukocytosis is largely relating to a degree of presenting dehydration and fluid sequestration within the bowel. Abdominal exam is relatively unimpressive. Agree with initial Solu-Medrol to hopefully settle an acute inflammatory component. If she has persistence of ob struction 72 hours into admission would recommend repeat imaging with either CT with oral contrast or Gastrografin small bowel follow-through. Patient was advised that in the setting of inflammatory bowel disease and Crohn's, our goal is usually to avoid surgery as much as possible, and when we do have to operate perform as limited a resection as is feasible. If she has a persistent tight stricture towards the terminal ileum it might be worthwhile to consider endoscopic balloon. Will follow, no acute surgical indications at present. Time with Patient: Greater than 30
[2021-06-27] MEDS: HEPARIN SODIUM,PORCINE/PF 5,000 UNIT/0.5 ML SYRINGE SQ SCH (16:33)
[2021-06-27] MEDS: GABAPENTIN 100 MG CAP PO SCH ×2 (16:33→22:35)
[2021-06-27] MEDS: PIPERACILLIN-TAZOBACTAM 3.375 GM in SODIUM CHLORIDE 0.9% 100 ML IVPB SCH (16:34)
[2021-06-27 17:12] LABS: Glucose,Whole Blood 128 mg/dL (75-99)
[2021-06-27] MEDS: INSULIN ASPART (NovoLOG) 100 UNIT/ML VIAL SQ SCH ×2 (17:14→22:36)
[2021-06-27] MEDS: HYDROmorphone 1 MG/ML 1 ML SYRINGE IVP PRN (17:15)
--- NOTE | 2021-06-27 17:35 | XR ---
EXAMINATION TYPE: XR chest 1V portable DATE OF EXAM: 06/27/2021 COMPARISON: NONE HISTORY: Check tube placement TECHNIQUE: Single view FINDINGS: There is nasogastric tube and the tip is probably in the distal stomach. There is no heart failure nor confluent pneumonic infiltrate. Costophrenic angles are clear IMPRESSION: NG tube in the distal stomach.
[2021-06-27] MEDS: methylPREDNISolone SOD SUCCI 125 MG/2 ML VIAL IV SCH (17:53)
[2021-06-27 20:00] LABS: Glucose,Whole Blood 133 mg/dL (75-99)
[2021-06-27] MEDS: BALSALAZIDE DISODIUM 750 MG CAPSULE PO SCH (22:35)
[2021-06-27] MEDS: MONTELUKAST 10 MG TAB PO SCH (22:35)
[2021-06-28] MEDS: methylPREDNISolone SOD SUCCI 125 MG/2 ML VIAL IV SCH ×2 (01:29→05:55)
[2021-06-28] MEDS: HYDROmorphone 1 MG/ML 1 ML SYRINGE IVP PRN ×2 (01:30→21:34)
[2021-06-28] MEDS: HEPARIN SODIUM,PORCINE/PF 5,000 UNIT/0.5 ML SYRINGE SQ SCH ×4 (01:30→23:56)
[2021-06-28] MEDS: PIPERACILLIN-TAZOBACTAM 3.375 GM in SODIUM CHLORIDE 0.9% 100 ML IVPB SCH ×4 (01:34→23:56)
[2021-06-28] MEDS: SODIUM CHLORIDE 0.9% 1,000 ML IV SCH ×2 (05:56→21:33)
[2021-06-28 07:24] LABS: Glucose,Whole Blood 142 mg/dL (75-99)
[2021-06-28] MEDS: INSULIN ASPART (NovoLOG) 100 UNIT/ML VIAL SQ SCH ×4 (07:43→20:50)
[2021-06-28] MEDS: VENLAFAXINE HCL ER 150 MG CAP PO SCH (08:59)
[2021-06-28] MEDS: BALSALAZIDE DISODIUM 750 MG CAPSULE PO SCH ×3 (09:00→21:34)
[2021-06-28] MEDS: GABAPENTIN 100 MG CAP PO SCH ×3 (09:00→21:34)
[2021-06-28] MEDS: ASPIRIN 81 MG PO SCH (09:00)
[2021-06-28] MEDS: ONDANSETRON 4 MG/2 ML VIAL IVP PRN ×2 (09:15→21:35)
[2021-06-28 10:13] LABS: Basophils # (A) 0.01 X 10*3/uL (0.00-0.10); Basophils % (A) 0.1 %; Eosinophils # (A) 0 X 10*3/uL (0.04-0.35); Eosinophils % (A) 0 %; HCT 35.7 % (37.2-46.3); HGB 11.4 g/dL (12.0-15.0); Immature Grans, Automated 0.5 %; Lymphocytes % (A) 4.5 %; MCHC 31.9 g/dL (32.0-37.0); MCV 100.3 fL (80.0-97.0); Mean Platelet Volume 10.4 fL (9.5-12.2); Monocytes # (A) 0.07 X 10*3/uL (0.20-1.00); Monocytes % (A) 0.6 %; NRBC Per 100 WBC 0 /100 WBCS (0.0-0.0); Neutrophils # (A) 10.48 X 10*3/uL (1.80-7.70); Neutrophils % (A) 94.3 %; Platelet Count 286 X 10*3/uL (140-440); RBC 3.56 X 10*6/uL (4.10-5.20); RDW 12.2 % (11.5-14.5); WBC 11.11 X 10*3/uL (4.50-10.00)
[2021-06-28 10:29] LABS: BUN/Creat Ratio 19.75 Ratio (12.00-20.00); Blood Urea Nitrogen 15.8 mg/dL (9.0-27.0); Calcium 8.8 mg/dL (8.7-10.3); Non-African American GFR(CKD) 87.2 (60.0-200.0); Potassium 4.3 mmol/L (3.5-5.5)
[2021-06-28 12:33] LABS: Glucose,Whole Blood 137 mg/dL (75-99)
--- NOTE | 2021-06-28 13:03 | P.PN ---
Subjective Progress Note Date: 06/28/21 Principal diagnosis: Patient is a 38-year-old female with a past medical history of Crohn's disease who presents to the ED with abdominal pain. She was found to have small bowel o bstruction likely due to Crohn's flareup. Patient had an NG tube placed. She was started on steroids. Patient also had an elevated WBC count and also complained of chills so she was also started on antibiotics. Gen. surgery following the patient and recommending conservative care for now. GI consult also place. Today patient says that she is having some vomiting. She states that her abdominal pain is better compared to yesterday and is now a 4 out of 10. Patient says that she is also passing some gas. Objective - Vital Signs Vital signs: Vital Signs Temp 98.9 F 06/28/21 04:01 Pulse 87 06/28/21 04:01 Resp 16 06/28/21 04:01 BP 111/76 06/28/21 04:01 Pulse Ox 97 06/28/21 04:01 Intake & Output 06/27/21 06/28/21 06/28/21 18:59 06:59 18:59 Intake Total 1560 Output Total 50 1 Balance 1510 -1 Weight 71.668 kg Intake: Intake, IV Titration 1560 Amount Sodium Chloride 0.9% 1, 1560 000 ml @ 130 mls/hr IV . Q7H42M [facility] Rx#:[id number] Output: Gastric Drainage 50 Emesis 1 Other: Voiding Method Toilet Toilet Toilet - Exam General examination - Alert and Oriented 3 in NAD Heart - + S1S2 no murmurs Lungs - Clear to auscultation Abdomen soft mild diffuse tenderness to palpate ND +ve BS Extremities - No edema AGER TENDER - Moving all 4 extremities spontaneously Psych - Calm and cooperative - Labs CBC & Chem 7: 06/28/21 06:30 06/28/21 06:30 Labs: Abnormal Lab Results - Last 24 Hours (Table) 06/27/21 06/27/21 06/27/21 Range/Units 12:32 12:32 15:43 WBC (4.50-10.00) X 10*3/uL RBC (4.10-5.20) X 10*6/uL Hgb (12.0-15.0) g/dL Hct (37.2-46.3) % MCV (80.0-97.0) fL MCHC (32.0-37.0) g/dL Immature Gran # (0.00-0.04) X 10*3/uL Neutrophils # (1.80-7.70) X 10*3/uL Lymphocytes # (0.90-5.00) X 10*3/uL Monocytes # (0.20-1.00) X 10*3/uL Eosinophils # (0.04-0.35) X 10*3/uL Glucose 168 H (74-99) mg/dL POC Glucose (mg/dL) (75-99) mg/dL AST 47 H (14-36) U/L ALT 47 H (4-34) U/L Alkaline Phosphatase 127 H (38-126) U/L C-Reactive Protein 1.2 H (<1.0) mg/dL Urine Appearance Cloudy H (Clear) Ur Specific [place] 1.038 H (1.001-1.035) Urine Protein 2+ H (Negative) Urine Blood Trace H (Negative) Urine RBC 7 H (0-5) /hpf Urine WBC 6 H (0-5) /hpf Ur Squamous Epith Cells 8 H (0-4) /hpf Amorphous Sediment Rare H (None) /hpf Urine Mucus Many H (None) /hpf 06/27/21 06/27/21 06/28/21 Range/Units 17:11 19:58 06:30 WBC 11.11 H (4.50-10.00) X 10*3/uL RBC 3.56 L (4.10-5.20) X 10*6/uL Hgb 11.4 L (12.0-15.0) g/dL Hct 35.7 L (37.2-46.3) % MCV 100.3 H (80.0-97.0) fL MCHC 31.9 L (32.0-37.0) g/dL Immature Gran # 0.05 H (0.00-0.04) X 10*3/uL Neutrophils # 10.48 H (1.80-7.70) X 10*3/uL Lymphocytes # 0.50 L (0.90-5.00) X 10*3/uL Monocytes # 0.07 L (0.20-1.00) X 10*3/uL Eosinophils # 0 L (0.04-0.35) X 10*3/uL Glucose (74-99) mg/dL POC Glucose (mg/dL) 128 H 133 H (75-99) mg/dL AST (14-36) U/L ALT (4-34) U/L Alkaline Phosphatase (38-126) U/L C-Reactive Protein (<1.0) mg/dL Urine Appearance (Clear) Ur Specific [place] (1.001-1.035) Urine Protein (Negative) Urine Blood (Negative) Urine RBC (0-5) /hpf Urine WBC (0-5) /hpf Ur Squamous Epith Cells (0-4) /hpf Amorphous Sediment (None) /hpf Urine Mucus (None) /hpf 06/28/21 06/28/21 06/28/21 Range/Units 06:30 07:22 12:13 WBC (4.50-10.00) X 10*3/uL RBC (4.10-5.20) X 10*6/uL Hgb (12.0-15.0) g/dL Hct (37.2-46.3) % MCV (80.0-97.0) fL MCHC (32.0-37.0) g/dL Immature Gran # (0.00-0.04) X 10*3/uL Neutrophils # (1.80-7.70) X 10*3/uL Lymphocytes # (0.90-5.00) X 10*3/uL Monocytes # (0.20-1.00) X 10*3/uL Eosinophils # (0.04-0.35) X 10*3/uL Glucose 147 H (74-99) mg/dL POC Glucose (mg/dL) 142 H 137 H (75-99) mg/dL AST (14-36) U/L ALT (4-34) U/L Alkaline Phosphatase (38-126) U/L C-Reactive Protein (<1.0) mg/dL Urine Appearance (Clear) Ur Specific [place] (1.001-1.035) Urine Protein (Negative) Urine Blood (Negative) Urine RBC (0-5) /hpf Urine WBC (0-5) /hpf Ur Squamous Epith Cells (0-4) /hpf Amorphous Sediment (None) /hpf Urine Mucus (None) /hpf Assessment and Plan Assessment: #Acute Crohn's exacerbation with small bowel obstruction -We'll start patient on IV Solu-Medrol 60 mg every 6 hours -Since patient complaining of chills and WBC elevated will start patient on IV Zosyn -WBC trending down -We'll obtain blood culture -NG tube as per general surgery -Nothing by mouth, IV fluids -Gen. surgery recommending conservative management and to repeat imaging in 72 hours if symptoms have not improved -CRP is mildly elevated -Patient is passing flatus #Iron deficiency anemia -Hold iron supplements in the setting of bowel obstruction -Hemoglobin stable with no overt signs of bleeding #Hyperglycemia likely reactive -Check hemoglobin A1c -Sliding-scale insulin #Asthma -Stable CODE STATUS:full code DVT prophylaxis: Subcu heparin Discussed with: Patient, ER, rn Anticipated length of stay > than [address]: home
--- NOTE | 2021-06-28 13:08 | P.PN ---
Subjective Progress Note Date: 06/28/21 Patient seen and examined at bedside. States abdominal pain is somewhat improved. States she had some flatus this morning. Nasogastric tube in place. Objective - Vital Signs Vital signs: Vital Signs Temp 98.9 F 06/28/21 04:01 Pulse 87 06/28/21 04:01 Resp 16 06/28/21 04:01 BP 111/76 06/28/21 04:01 Pulse Ox 97 06/28/21 04:01 Intake & Output 06/27/21 06/28/21 06/28/21 18:59 06:59 18:59 Intake Total 1560 Output Total 50 1 Balance 1510 -1 Weight 71.668 kg Intake: Intake, IV Titration 1560 Amount Sodium Chloride 0.9% 1, 1560 000 ml @ 130 mls/hr IV . Q7H42M [facility] Rx#:[id number] Output: Gastric Drainage 50 Emesis 1 Other: Voiding Method Toilet Toilet Toilet - Constitutional General appearance: Present: cooperative - Respiratory Details: No difficulty with respiration - Gastrointestinal Gastrointestinal Comment(s): Soft, mild distention, mild tenderness, no rebound, no guarding - Psychiatric Psychiatric: Present: A&O x's 3 - Labs CBC & Chem 7: 06/28/21 06:30 06/28/21 06:30 Labs: Abnormal Lab Results - Last 24 Hours (Table) 06/27/21 06/27/21 06/27/21 Range/Units 12:32 15:43 17:11 WBC (4.50-10.00) X 10*3/uL RBC (4.10-5.20) X 10*6/uL Hgb (12.0-15.0) g/dL Hct (37.2-46.3) % MCV (80.0-97.0) fL MCHC (32.0-37.0) g/dL Immature Gran # (0.00-0.04) X 10*3/uL Neutrophils # (1.80-7.70) X 10*3/uL Lymphocytes # (0.90-5.00) X 10*3/uL Monocytes # (0.20-1.00) X 10*3/uL Eosinophils # (0.04-0.35) X 10*3/uL Glucose (70-110) mg/dL POC Glucose (mg/dL) 128 H (75-99) mg/dL C-Reactive Protein 1.2 H (<1.0) mg/dL Urine Appearance Cloudy H (Clear) Ur Specific [place] 1.038 H (1.001-1.035) Urine Protein 2+ H (Negative) Urine Blood Trace H (Negative) Urine RBC 7 H (0-5) /hpf Urine WBC 6 H (0-5) /hpf Ur Squamous Epith Cells 8 H (0-4) /hpf Amorphous Sediment Rare H (None) /hpf Urine Mucus Many H (None) /hpf 06/27/21 06/28/21 06/28/21 Range/Units 19:58 06:30 06:30 WBC 11.11 H (4.50-10.00) X 10*3/uL RBC 3.56 L (4.10-5.20) X 10*6/uL Hgb 11.4 L (12.0-15.0) g/dL Hct 35.7 L (37.2-46.3) % MCV 100.3 H (80.0-97.0) fL MCHC 31.9 L (32.0-37.0) g/dL Immature Gran # 0.05 H (0.00-0.04) X 10*3/uL Neutrophils # 10.48 H (1.80-7.70) X 10*3/uL Lymphocytes # 0.50 L (0.90-5.00) X 10*3/uL Monocytes # 0.07 L (0.20-1.00) X 10*3/uL Eosinophils # 0 L (0.04-0.35) X 10*3/uL Glucose 147 H (70-110) mg/dL POC Glucose (mg/dL) 133 H (75-99) mg/dL C-Reactive Protein (<1.0) mg/dL Urine Appearance (Clear) Ur Specific [place] (1.001-1.035) Urine Protein (Negative) Urine Blood (Negative) Urine RBC (0-5) /hpf Urine WBC (0-5) /hpf Ur Squamous Epith Cells (0-4) /hpf Amorphous Sediment (None) /hpf Urine Mucus (None) /hpf 06/28/21 06/28/21 Range/Units 07:22 12:13 WBC (4.50-10.00) X 10*3/uL RBC (4.10-5.20) X 10*6/uL Hgb (12.0-15.0) g/dL Hct (37.2-46.3) % MCV (80.0-97.0) fL MCHC (32.0-37.0) g/dL Immature Gran # (0.00-0.04) X 10*3/uL Neutrophils # (1.80-7.70) X 10*3/uL Lymphocytes # (0.90-5.00) X 10*3/uL Monocytes # (0.20-1.00) X 10*3/uL Eosinophils # (0.04-0.35) X 10*3/uL Glucose (70-110) mg/dL POC Glucose (mg/dL) 142 H 137 H (75-99) mg/dL C-Reactive Protein (<1.0) mg/dL Urine Appearance (Clear) Ur Specific [place] (1.001-1.035) Urine Protein (Negative) Urine Blood (Negative) Urine RBC (0-5) /hpf Urine WBC (0-5) /hpf Ur Squamous Epith Cells (0-4) /hpf Amorphous Sediment (None) /hpf Urine Mucus (None) /hpf Assessment and Plan Plan: 46-year-old female with small bowel obstruction likely secondary to Crohn's ileitis. Patient is currently being treated with medical management steroids and antibiotics. She did have some flatus this morning which will hopefully indicate resolution of the obstructive process. 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 Currently, no plan for surgical intervention. If patient continues to advance and bowel function, we will plan for removal of NG tube at that time.
--- NOTE | 2021-06-28 15:59 | P.CONS ---
History of Present Illness - Reason for Consult Consult date: 06/28/21 SBO, crohns disease Requesting physician: Yuliet Randolph - Chief Complaint Abdominal pain - History of Present Illness This is a 46-year-old female with a past medical history of Crohn's disease diagnosed 10-15 years ago. She is currently under the treatment of Dr. Suazo and takes Pentase. Apparently she does get obstruction every 2-3 years. Her last one being about 2 years ago at [facility]. She has not had any previous bowel surgery, only history is cholecystectomy. She states abdominal pain started yesterday afternoon followed with some nausea and vomiting. She had a CT of the abdomen and pelvis that showed diffuse moderate dilation of the small bowel measuring up to 3.2 cm with a small amount of free fluid in the pelvis. Several areas of stricturing and at least one focal adhesion of the distal small bowel which represent sequela of inflammatory bowel disease. She was admitted to the emergency department and was evaluated by general surgery who ordered an NG tube. Patient has had approximately 100 mL's of output. She was started on Solu-Medrol, IV Zosyn. She has been afebrile. Platelet count 347,000, total bilirubin 0.8 AST 47 ALT 47 DAYS 127 C-reactive protein 1.2 lipase 236. She states her last bowel movement was yesterday which was normal. She denies any blood in her stool. She did have an episode of emesis this morning. Review of Systems REVIEW OF SYSTEMS: CARDIOPULMONARY: No chest pain or shortness of breath. Gastrointestinal: Abdominal pain, greatest in the left lower abdomen. Nausea with vomiting. No hematemesis, coffee-ground emesis. No rectal bleeding, or melena. GENITOURINARY: No dysuria or hematuria. MUSCULOSKELETAL: Reports normal range of motion., Joint pain. SKIN: No rashes. No jaundice. ENDOCRINE: No chills, fevers. No excessive weight gain or loss. No polydipsia or polyuria. PSYCHIATRIC: Unremarkable. NEUROLOGY: No change in mental status. Denies dizziness, headache. ENT: Vision unremarkable. CONSTITUTIONAL: No recent weight loss. No fever, chills, night sweats. Past Medical History Additional Past Medical History / Comment(s): crohns, anemia History of Any Multi-Drug Resistant Organisms: None Reported Past Surgical History: Cholecystectomy Past Psychological History: No Psychological Hx Reported Smoking Status: Former smoker Past Alcohol Use History: Occasional Past Drug Use History: None Reported Medications and Allergies Home Medications Medication Instructions Recorded Confirmed Type Aspirin EC [Ecotrin Low Dose] 81 mg PO DAILY 06/27/21 06/27/21 History Calcium 600mg (Chewable) 600 mg PO DAILY 06/27/21 06/27/21 History Cholecalciferol [Vitamin D3 (25 50 mcg PO BID 06/27/21 06/27/21 History Mcg = 1000 Iu)] Cyanocobalamin (Vitamin B-12) 1,000 mcg PO DAILY 06/27/21 06/27/21 History [Vitamin B-12] Ferrous Sulfate [Feosol] 325 mg PO TID 06/27/21 06/27/21 History Gabapentin [Neurontin] 100 mg PO TID 06/27/21 06/27/21 History Mesalamine [Pentasa] 1,000 mg PO QID 06/27/21 06/27/21 History Montelukast [Singulair] 10 mg PO HS 06/27/21 06/27/21 History Multivitamin (Chewable) 1 tab PO DAILY 06/27/21 06/27/21 History Venlafaxine HCl ER [Effexor Xr] 150 mg PO DAILY 06/27/21 06/27/21 History Allergies Allergy/AdvReac Type Severity Reaction Status Date / Time No Known Allergies Allergy Verified 06/27/21 12:25 Physical Exam Vitals: Vital Signs Temp Pulse Pulse Resp BP BP Pulse Ox 06/28/21 04:01 98.9 F 87 16 111/76 97 06/27/21 19:59 98.0 F 77 16 118/78 97 06/27/21 16:57 83 18 06/27/21 15:50 97.8 F 80 18 115/78 97 06/27/21 14:38 82 20 107/76 99 06/27/21 14:16 98.6 F 83 16 123/81 100 06/27/21 11:57 97.1 F L 82 16 134/90 98 Intake and Output 06/27/21 06/28/21 06/28/21 22:59 06:59 14:59 Intake Total 1560 Output Total 50 Balance 1510 Intake: Intake, IV Titration 1560 Amount Sodium Chloride 0.9% 1, 1560 000 ml @ 130 mls/hr IV . Q7H42M [facility] Rx#:[id number] Output: Gastric Drainage 50 Other: Voiding Method Toilet General appearance: The patient is alert, oriented, appears in no acute distress. HET: Head is normocephalic and atraumatic. Conjunctiva pink. Sclera anicteric. Neck: Supple without lymphadenopathy. Trachea midline. Heart: S1 S2. Regular rate and rhythm. Lungs: Clear to auscultation. Abdomen: Soft, diffuse tenderness, greatest in the lower abdomen, mild distention with bowel sounds. No guarding or rigidity. Skin: No rashes. No jaundice. Extremities: Normal skin color and turgor. No pedal edema. Neurological: No focal deficits. Alert and oriented x3. Results CBC & Chem 7: 06/28/21 06:30 06/28/21 06:30 Labs: Abnormal Lab Results - Last 24 Hours (Table) 06/27/21 06/27/21 06/27/21 Range/Units 12:32 12:32 12:32 WBC 18.2 H (3.8-10.6) k/uL Hct 46.7 H (34.0-46.0) % Neutrophils # 17.2 H (1.3-7.7) k/uL Lymphocytes # 0.4 L (1.0-4.8) k/uL Glucose 168 H (74-99) mg/dL POC Glucose (mg/dL) (75-99) mg/dL AST 47 H (14-36) U/L ALT 47 H (4-34) U/L Alkaline Phosphatase 127 H (38-126) U/L C-Reactive Protein (<1.0) mg/dL Urine Appearance Cloudy H (Clear) Ur Specific [place] 1.038 H (1.001-1.035) Urine Protein 2+ H (Negative) Urine Blood Trace H (Negative) Urine RBC 7 H (0-5) /hpf Urine WBC 6 H (0-5) /hpf Ur Squamous Epith Cells 8 H (0-4) /hpf Amorphous Sediment Rare H (None) /hpf Urine Mucus Many H (None) /hpf 06/27/21 06/27/21 06/27/21 Range/Units 15:43 17:11 19:58 WBC (3.8-10.6) k/uL Hct (34.0-46.0) % Neutrophils # (1.3-7.7) k/uL Lymphocytes # (1.0-4.8) k/uL Glucose (74-99) mg/dL POC Glucose (mg/dL) 128 H 133 H (75-99) mg/dL AST (14-36) U/L ALT (4-34) U/L Alkaline Phosphatase (38-126) U/L C-Reactive Protein 1.2 H (<1.0) mg/dL Urine Appearance (Clear) Ur Specific [place] (1.001-1.035) Urine Protein (Negative) Urine Blood (Negative) Urine RBC (0-5) /hpf Urine WBC (0-5) /hpf Ur Squamous Epith Cells (0-4) /hpf Amorphous Sediment (None) /hpf Urine Mucus (None) /hpf 06/28/21 Range/Units 07:22 WBC (3.8-10.6) k/uL Hct (34.0-46.0) % Neutrophils # (1.3-7.7) k/uL Lymphocytes # (1.0-4.8) k/uL Glucose (74-99) mg/dL POC Glucose (mg/dL) 142 H (75-99) mg/dL AST (14-36) U/L ALT (4-34) U/L Alkaline Phosphatase (38-126) U/L C-Reactive Protein (<1.0) mg/dL Urine Appearance (Clear) Ur Specific [place] (1.001-1.035) Urine Protein (Negative) Urine Blood (Negative) Urine RBC (0-5) /hpf Urine WBC (0-5) /hpf Ur Squamous Epith Cells (0-4) /hpf Amorphous Sediment (None) /hpf Urine Mucus (None) /hpf CT scan - abdomen: report reviewed (CT of the abdomen and pelvis that showed dif fuse moderate dilation of the small bowel measuring up to 3.2 cm with a small amount of free fluid in the pelvis. Several areas of stricturing and at least one focal adhesion of the distal small bowel which represent sequela of inflammatory bowel disease.) Assessment and Plan (1) Crohn's disease Narrative/Plan: 38-year-old female well known to gastroenterology with a history of Crohn's disease diagnosed 10-15 years ago. Patient currently on Pentase. She presented to the emergency department yesterday after experiencing abdominal pain with nausea and vomiting. Patient has a history of small bowel obstruction in the past usually gets them every 2-3 years and resolves with medical management. She has no previous history of any bowel resection. Abdominal pain has improved somewhat today. She was seen by general surgery who had a NG tube placed she's had approximately 100 mL of output. Last bowel movement was yesterday which she states she had a small bowel movement and did not notice any blood. She had one episode of emesis early in the morning but nausea and vomiting has improved as well. We will continue with Solu-Medrol 20 mg IV every 8 hours, IV antibiotics and conservative management at this time. Discussed with general surgery who are agreeable. Current Visit: Yes Status: Acute Code(s): K50.90 - CROHN'S DISEASE, UNSPECIFIED, WITHOUT COMPLICATIONS SNOMED Code(s): 70681255 (2) Abdominal pain Current Visit: Yes Status: Acute Code(s): R10.9 - UNSPECIFIED ABDOMINAL PAIN SNOMED Code(s): 57722353 (3) Leukocytosis Current Visit: Yes Status: Acute Code(s): D72.829 - ELEVATED WHITE BLOOD C ELL COUNT, UNSPECIFIED SNOMED Code(s): 270451776 (4) Small bowel obstruction Narrative/Plan: General surgery following closely. Proceeding with medical management at this time. Current Visit: Yes Status: Acute Code(s): K56.609 - UNSP INTESTNL OBST, UNSP TO PARTIAL VERSUS COMPLETE OBST SNOMED Code(s): 897463648 Plan: 1. Continue symptomatic and supportive care 2. Keep nothing by mouth 3. Agree with NG tube 4. Solu-Medrol 20 mg IV every 8 hours 5. Continue with IV antibiotics 6. Gen. surgery on consult, appreciate their recommendations 7. Recommend conservative medical management at this time 8. Repeat CBC, CMP in the morning Thank you for this consultation, we will continue to follow. Dr. Carisa Suazo I agree with the dictator's note, documented as a scribe by Odilia Heredia.
[2021-06-28] MEDS: methylPREDNISolone SOD SUCCI 40 MG/ML 1 ML VIAL IV SCH ×2 (16:48→23:56)
[2021-06-28 17:33] LABS: Glucose,Whole Blood 109 mg/dL (75-99)
[2021-06-28 20:27] LABS: Glucose,Whole Blood 109 mg/dL (75-99)
[2021-06-28] MEDS: MONTELUKAST 10 MG TAB PO SCH (21:34)
[2021-06-29] MEDS: SODIUM CHLORIDE 0.9% 1,000 ML IV SCH ×3 (04:51→23:13)
[2021-06-29 07:28] LABS: Glucose,Whole Blood 121 mg/dL (75-99)
[2021-06-29] MEDS: INSULIN ASPART (NovoLOG) 100 UNIT/ML VIAL SQ SCH ×4 (07:57→21:50)
[2021-06-29 09:08] LABS: Basophils # (A) 0.01 X 10*3/uL (0.00-0.10); Basophils % (A) 0.1 %; Eosinophils # (A) 0 X 10*3/uL (0.04-0.35); Eosinophils % (A) 0 %; HCT 33.9 % (37.2-46.3); HGB 10.7 g/dL (12.0-15.0); Immature Grans, Automated 0.8 %; Lymphocytes % (A) 5.2 %; MCH 31.8 pg (27.0-32.0); MCHC 31.6 g/dL (32.0-37.0); MCV 100.6 fL (80.0-97.0); Mean Platelet Volume 10.5 fL (9.5-12.2); Monocytes # (A) 0.43 X 10*3/uL (0.20-1.00); Monocytes % (A) 3.2 %; NRBC Per 100 WBC 0 /100 WBCS (0.0-0.0); Neutrophils # (A) 12.23 X 10*3/uL (1.80-7.70); Neutrophils % (A) 90.7 %; Platelet Count 250 X 10*3/uL (140-440); RBC 3.37 X 10*6/uL (4.10-5.20); RDW 12.5 % (11.5-14.5); WBC 13.48 X 10*3/uL (4.50-10.00)
[2021-06-29 09:20] LABS: Anion Gap 9.6 mmol/L (10.00-18.00); BUN/Creat Ratio 24.75 Ratio (12.00-20.00); Blood Urea Nitrogen 19.8 mg/dL (9.0-27.0); Calcium 8.6 mg/dL (8.7-10.3); Carbon Dioxide 24.4 mmol/L (20.0-27.5); Magnesium 2.3 mg/dL (1.5-2.4); Non-African American GFR(CKD) 87.2 (60.0-200.0); Potassium 4.3 mmol/L (3.5-5.5)
[2021-06-29] MEDS: methylPREDNISolone SOD SUCCI 40 MG/ML 1 ML VIAL IV SCH ×3 (09:37→23:21)
[2021-06-29] MEDS: HEPARIN SODIUM,PORCINE/PF 5,000 UNIT/0.5 ML SYRINGE SQ SCH ×3 (09:37→23:21)
[2021-06-29] MEDS: PIPERACILLIN-TAZOBACTAM 3.375 GM in SODIUM CHLORIDE 0.9% 100 ML IVPB SCH ×3 (09:38→23:21)
[2021-06-29] MEDS: ASPIRIN 81 MG PO SCH (09:39)
[2021-06-29] MEDS: GABAPENTIN 100 MG CAP PO SCH ×3 (09:40→21:59)
[2021-06-29] MEDS: BALSALAZIDE DISODIUM 750 MG CAPSULE PO SCH ×3 (09:40→21:59)
[2021-06-29] MEDS: VENLAFAXINE HCL ER 150 MG CAP PO SCH (09:41)
[2021-06-29] MEDS: PANTOPRAZOLE 40 MG/10 ML VIAL IVP SCH (09:55)
[2021-06-29] MEDS: ONDANSETRON 4 MG/2 ML VIAL IVP PRN (09:55)
[2021-06-29] MEDS ORDERED: BENZOCAINE/MENTHOL LOZENG 1 EACH LOZENGE MUCOUS MEM PRN (10:18)
[2021-06-29 12:12] LABS: Glucose,Whole Blood 124 mg/dL (75-99)
--- NOTE | 2021-06-29 13:03 | P.PN ---
<Barry Adkins - Last Filed: 06/29/21 12:43> Subjective Progress Note Date: 06/29/21 Hospital course: Patient is a very pleasant 38-year-old female with a past medical history of Crohn's disease who presented to the emergency department with a chief complaint of abdominal pain on 06/27/21. Patient was found to have a bowel obstruction likely secondary to a Crohn's exacerbation. CT abdomen and pelvis revealing moderate dilation of the small bowel measuring up to 3.2 cm with small amount of free fluid in the pelvis, patient with several areas of stricturing and at least one focal adhesion of the distal small bowel which represents sequelae of inflammatory bowel disease. Patient had an NG tube placed to low intermittent suction to decompress her bowels. She was started on IV antibiotics Zosyn and steroids. Patient was admitted under our services of consultation to GI and general surgery. Physical exam: Patient seen and fully evaluated at bedside this morning. NG tube remains in place to low intermittent suction with continued dark brown gastric output totaling 800 mL over the past 24 hours. Patient denies having any episodes of vomiting since yesterday and currently reports nausea has subsided. Abdomen remains soft but significantly distended. Patient does report she has been up to the restroom attempting to have a bowel movement on multiple occasions and is able to pass flatus but has not been able to have a bowel movement as of yet. Vital signs reviewed and stable. General: Nontoxic, no distress and appears stated age. Derm: Skin warm and dry, normal coloration for ethnicity. Head: Atraumatic, normocephalic and symmetric. Eyes: EOMs intact, no lid lag, and anicteric sclera Mouth: no lip lesions, mucus membranes moist Cardiovascular: regular rate and rhythm with normal S1S2, no murmur, positive posterior tibial pulses bilaterally, and cap refill < 2 seconds. Lungs: Respirations even, regular, and unlabored on room air. Lungs CTA bilaterally, no rhonchi, no rales, no wheezing, and no accessory muscle usage. Abdominal: Soft distended with diffuse tenderness upon palpation. No guarding. Ext: ROM intact. No gross muscle atrophy, no edema, no contractures Neuro: Speech clear, face symmetrical and CN II-XII grossly intact with no noted focal neuro deficits Psych: Alert and oriented to person, place, time, and situation. Appropriate and pleasant affect. Assessment and Plan of Care: Acute Crohn's exacerbation with small bowel obstruction -Continue IV Solu-Medrol, GI decrease dose to 20 mg every 8 hours -Patient with persistent leukocytosis with WBC count of 13.48, continue IV antibiotic: Zosyn -Blood culture showing no growth after 24 hours -NG tube to low intermittent suction -Keep patient Nothing by mouth -Continued hydration with IV fluids -Gen. surgery following recommending continued medical management, no plans for surgical intervention at this time. -Patient is passing flatus Iron deficiency anemia -Hold iron supplements in the setting of bowel obstruction -Hemoglobin stable with no overt signs of bleeding Hyperglycemia likely reactive -Hemoglobin A1c 5.8% -Sliding-scale insulin Asthma -Stable CODE STATUS: Full code DVT prophylaxis: Subcu heparin Discussed with: Patient, RN Anticipated length of stay > than [address]: Home A total of 35 minutes was spent on the care of this complex patient more than 50% of the time was spent in counseling and care coordination. Objective - Vital Signs Vital signs: Vital Signs Temp 98.9 F 06/29/21 04:00 Pulse 83 06/29/21 04:00 Resp 18 06/29/21 04:00 BP 143/81 06/29/21 04:00 Pulse Ox 98 06/29/21 04:00 Intake & Output 06/28/21 06/29/21 06/29/21 18:59 06:59 18:59 Intake Total 1590 1660 Output Total 1350 Balance 240 1660 Intake: Intake, IV Titration 1590 1660 Amount Piperacillin-Tazobactam 3 100 .375 gm In Sodium Chloride 0.9% 100 ml @ 25 mls/hr IVPB Q8HR [facility] Rx# :[id number] Sodium Chloride 0.9% 1, 1590 1560 000 ml @ 130 mls/hr IV . Q7H42M [facility] Rx#:[id number] Output: Gastric Drainage 800 Emesis 550 Other: Voiding Method Toilet Toilet - Labs CBC & Chem 7: 06/29/21 05:52 06/29/21 05:52 Labs: Abnormal Lab Results - Last 24 Hours (Table) 06/28/21 06/28/21 06/28/21 Range/Units 06:30 06:30 12:13 WBC 11.11 H (4.50-10.00) X 10*3/uL RBC 3.56 L (4.10-5.20) X 10*6/uL Hgb 11.4 L (12.0-15.0) g/dL Hct 35.7 L (37.2-46.3) % MCV 100.3 H (80.0-97.0) fL MCHC 31.9 L (32.0-37.0) g/dL Immature Gran # 0.05 H (0.00-0.04) X 10*3/uL Neutrophils # 10.48 H (1.80-7.70) X 10*3/uL Lymphocytes # 0.50 L (0.90-5.00) X 10*3/uL Monocytes # 0.07 L (0.20-1.00) X 10*3/uL Eosinophils # 0 L (0.04-0.35) X 10*3/uL Glucose 147 H (70-110) mg/dL POC Glucose (mg/dL) 137 H (75-99) mg/dL 06/28/21 06/28/21 06/29/21 Range/Units 17:19 20:20 07:25 WBC (4.50-10.00) X 10*3/uL RBC (4.10-5.20) X 10*6/uL Hgb (12.0-15.0) g/dL Hct (37.2-46.3) % MCV (80.0-97.0) fL MCHC (32.0-37.0) g/dL Immature Gran # (0.00-0.04) X 10*3/uL Neutrophils # (1.80-7.70) X 10*3/uL Lymphocytes # (0.90-5.00) X 10*3/uL Monocytes # (0.20-1.00) X 10*3/uL Eosinophils # (0.04-0.35) X 10*3/uL Glucose (70-110) mg/dL POC Glucose (mg/dL) 109 H 109 H 121 H (75-99) mg/dL Microbiology - Last 24 Hours (Table) 06/27/21 14:26 Blood Culture - Preliminary Blood No Growth after 24 hours 06/27/21 14:15 Blood Culture - Preliminary Blood No Growth after 24 hours <Bleibel,Samer A - Last Filed: 06/30/21 09:29> Subjective Principal diagnosis: agree with note and plan agree with note and plan Objective - Vital Signs Vital signs: Vital Signs Temp 97.6 F 06/30/21 03:33 Pulse 70 06/30/21 03:33 Resp 18 06/30/21 03:33 BP 156/87 06/30/21 03:33 Pulse Ox 94 L 06/30/21 03:33 Intake & Output 06/29/21 06/30/21 06/30/21 18:59 06:59 18:59 Intake Total 1140 Output Total 700 Balance 440 Intake: Intake, IV Titration 1140 Amount Piperacillin-Tazobactam 3 100 .375 gm In Sodium Chloride 0.9% 100 ml @ 25 mls/hr IVPB Q8HR [facility] Rx# :[id number] Sodium Chloride 0.9% 1, 1040 000 ml @ 130 mls/hr IV . Q7H42M [facility] Rx#:[id number] Output: Emesis 700 Other: Voiding Method Bedside Commode Bedside Commode # Voids 3 2 # Bowel Movements 0 - Labs CBC & Chem 7: 06/29/21 05:52 06/29/21 05:52 Labs: Abnormal Lab Results - Last 24 Hours (Table) 06/29/21 06/29/21 06/29/21 Range/Units 12:11 17:17 20:04 POC Glucose (mg/dL) 124 H 105 H 107 H (75-99) mg/dL Microbiology - Last 24 Hours (Table) 06/27/21 14:26 Blood Culture - Preliminary Blood No Growth after 48 hours 06/27/21 14:15 Blood Culture - Preliminary Blood No Growth after 48 hours
--- NOTE | 2021-06-29 14:52 | P.PN ---
Subjective Progress Note Date: 06/29/21 Patient seen and examined at bedside. Complains of significant nausea did begin having some emesis episodes while I was in the room. She did have a nasogastric tube clamped and was provided with oral medication prior to this. Patient did state that she has been having bowel function with flatus and no bowel movement over the past 24 hours. She states her abdominal pain overall had improved prior to bilious emesis episodes. She still is reporting distention. Objective - Vital Signs Vital signs: Vital Signs Temp 98.1 F 06/29/21 12:40 Pulse 76 06/29/21 12:40 Resp 16 06/29/21 12:40 BP 159/81 06/29/21 12:40 Pulse Ox 97 06/29/21 12:40 Intake & Output 06/28/21 06/29/21 06/29/21 18:59 06:59 18:59 Intake Total 1590 1660 Output Total 1350 Balance 240 1660 Intake: Intake, IV Titration 1590 1660 Amount Piperacillin-Tazobactam 3 100 .375 gm In Sodium Chloride 0.9% 100 ml @ 25 mls/hr IVPB Q8HR [facility] Rx# :[id number] Sodium Chloride 0.9% 1, 1590 1560 000 ml @ 130 mls/hr IV . Q7H42M [facility] Rx#:[id number] Output: Gastric Drainage 800 Emesis 550 Other: Voiding Method Toilet Toilet Bedside Commode # Voids 1 # Bowel Movements 0 - Constitutional General appearance: Present: cooperative, no acute distress - Gastrointestinal Gastrointestinal Comment(s): Soft, Moderate distention, mild generalized tenderness, no rebound, no guarding - Psychiatric Psychiatric: Present: A&O x's 3 - Labs CBC & Chem 7: 06/29/21 05:52 06/29/21 05:52 Labs: Abnormal Lab Results - Last 24 Hours (Table) 06/28/21 06/28/21 06/29/21 Range/Units 17:19 20:20 05:52 WBC 13.48 H (4.50-10.00) X 10*3/uL RBC 3.37 L (4.10-5.20) X 10*6/uL Hgb 10.7 L (12.0-15.0) g/dL Hct 33.9 L (37.2-46.3) % MCV 100.6 H (80.0-97.0) fL MCHC 31.6 L (32.0-37.0) g/dL Immature Gran # 0.11 H (0.00-0.04) X 10*3/uL Neutrophils # 12.23 H (1.80-7.70) X 10*3/uL Lymphocytes # 0.70 L (0.90-5.00) X 10*3/uL Eosinophils # 0 L (0.04-0.35) X 10*3/uL Anion Gap (10.00-18.00) mmol/L BUN/Creatinine Ratio (12.00-20.00) Ratio Glucose (70-110) mg/dL POC Glucose (mg/dL) 109 H 109 H (75-99) mg/dL Calcium (8.7-10.3) mg/dL 06/29/21 06/29/21 06/29/21 Range/Units 05:52 07:25 12:11 WBC (4.50-10.00) X 10*3/uL RBC (4.10-5.20) X 10*6/uL Hgb (12.0-15.0) g/dL Hct (37.2-46.3) % MCV (80.0-97.0) fL MCHC (32.0-37.0) g/dL Immature Gran # (0.00-0.04) X 10*3/uL Neutrophils # (1.80-7.70) X 10*3/uL Lymphocytes # (0.90-5.00) X 10*3/uL Eosinophils # (0.04-0.35) X 10*3/uL Anion Gap 9.60 L (10.00-18.00) mmol/L BUN/Creatinine Ratio 24.75 H (12.00-20.00) Ratio Glucose 118 H (70-110) mg/dL POC Glucose (mg/dL) 121 H 124 H (75-99) mg/dL Calcium 8.6 L (8.7-10.3) mg/dL Microbiology - Last 24 Hours (Table) 06/27/21 14:26 Blood Culture - Preliminary Blood No Growth after 24 hours 06/27/21 14:15 Blood Culture - Preliminary Blood No Growth after 24 hours Assessment and Plan Plan: 46-year-old female with small bowel obstruction likely secondary to Crohn's ileitis. The patient is having emesis episodes during my exam was once again p laced on low intermittent suction of the nasogastric tube. She is having flatus which is an improvement from previous physicians with the patient. We will continue nasogastric tube decompression and steroid therapy and antibiotics for flareup. We will continue to await further bowel function. Continue nasogastric tube decompression at this time.
--- NOTE | 2021-06-29 15:36 | P.PN ---
Subjective Progress Note Date: 06/29/21 Principal diagnosis: Small bowel obstruction, Crohn's disease 46-year-old female seen as a follow-up for abdominal pain. She was found on CT to have a small bowel obstruction for which Gen. surgery is following. She has a long-standing history of Crohn's disease. Today she states abdominal pain is improving, she had approximately 750 miles out of her NG tube in the last 24 hours. She states she has had a couple episodes of emesis. She is tolerating some ice chips. She's been afebrile. She states she is passing some gas. Objective - Vital Signs Vital signs: Vital Signs Temp 98.9 F 06/29/21 04:00 Pulse 83 06/29/21 04:00 Resp 18 06/29/21 04:00 BP 143/81 06/29/21 04:00 Pulse Ox 98 06/29/21 04:00 Intake & Output 06/28/21 06/29/21 06/29/21 18:59 06:59 18:59 Intake Total 1590 1660 Output Total 1350 Balance 240 1660 Intake: Intake, IV Titration 1590 1660 Amount Piperacillin-Tazobactam 3 100 .375 gm In Sodium Chloride 0.9% 100 ml @ 25 mls/hr IVPB Q8HR [facility] Rx# :[id number] Sodium Chloride 0.9% 1, 1590 1560 000 ml @ 130 mls/hr IV . Q7H42M [facility] Rx#:[id number] Output: Gastric Drainage 800 Emesis 550 Other: Voiding Method Toilet Toilet - Exam General appearance: The patient is alert, oriented, appears in no acute distress . HET: Head is normocephalic and atraumatic. Conjunctiva pink. Sclera anicteric. NG tube in place with suction. Neck: Supple without lymphadenopathy. Abdomen: Soft, mild tenderness in the lower abdomen, nondistended with bowel sounds. No guarding or rigidity. Extremities: Normal skin color and turgor. No pedal edema Skin: No rashes, no jaundice Neurological: No focal deficits. Alert and oriented -3. - Labs CBC & Chem 7: 06/29/21 05:52 06/29/21 05:52 Labs: Abnormal Lab Results - Last 24 Hours (Table) 06/28/21 06/28/21 06/28/21 Range/Units 06:30 12:13 17:19 WBC (4.50-10.00) X 10*3/uL RBC (4.10-5.20) X 10*6/uL Hgb (12.0-15.0) g/dL Hct (37.2-46.3) % MCV (80.0-97.0) fL MCHC (32.0-37.0) g/dL Immature Gran # (0.00-0.04) X 10*3/uL Neutrophils # (1.80-7.70) X 10*3/uL Lymphocytes # (0.90-5.00) X 10*3/uL Eosinophils # (0.04-0.35) X 10*3/uL Anion Gap (10.00-18.00) mmol/L BUN/Creatinine Ratio (12.00-20.00) Ratio Glucose 147 H (70-110) mg/dL POC Glucose (mg/dL) 137 H 109 H (75-99) mg/dL Calcium (8.7-10.3) mg/dL 06/28/21 06/29/21 06/29/21 Range/Units 20:20 05:52 05:52 WBC 13.48 H (4.50-10.00) X 10*3/uL RBC 3.37 L (4.10-5.20) X 10*6/uL Hgb 10.7 L (12.0-15.0) g/dL Hct 33.9 L (37.2-46.3) % MCV 100.6 H (80.0-97.0) fL MCHC 31.6 L (32.0-37.0) g/dL Immature Gran # 0.11 H (0.00-0.04) X 10*3/uL Neutrophils # 12.23 H (1.80-7.70) X 10*3/uL Lymphocytes # 0.70 L (0.90-5.00) X 10*3/uL Eosinophils # 0 L (0.04-0.35) X 10*3/uL Anion Gap 9.60 L (10.00-18.00) mmol/L BUN/Creatinine Ratio 24.75 H (12.00-20.00) Ratio Glucose 118 H (70-110) mg/dL POC Glucose (mg/dL) 109 H (75-99) mg/dL Calcium 8.6 L (8.7-10.3) mg/dL 06/29/21 Range/Units 07:25 WBC (4.50-10.00) X 10*3/uL RBC (4.10-5.20) X 10*6/uL Hgb (12.0-15.0) g/dL Hct (37.2-46.3) % MCV (80.0-97.0) fL MCHC (32.0-37.0) g/dL Immature Gran # (0.00-0.04) X 10*3/uL Neutrophils # (1.80-7.70) X 10*3/uL Lymphocytes # (0.90-5.00) X 10*3/uL Eosinophils # (0.04-0.35) X 10*3/uL Anion Gap (10.00-18.00) mmol/L BUN/Creatinine Ratio (12.00-20.00) Ratio Glucose (70-110) mg/dL POC Glucose (mg/dL) 121 H (75-99) mg/dL Calcium (8.7-10.3) mg/dL Microbiology - Last 24 Hours (Table) 06/27/21 14:26 Blood Culture - Preliminary Blood No Growth after 24 hours 06/27/21 14:15 Blood Culture - Preliminary Blood No Growth after 24 hours Assessment and Plan (1) Crohn's disease Narrative/Plan: 38-year-old female well known to gastroenterology with a history of Crohn's disease diagnosed 10-15 years ago. Patient currently on Pentase. She presented to the emergency department yesterday after experiencing abdominal pain with nausea and vomiting. Patient has a history of small bowel obstruction in the past usually gets them every 2-3 years and resolves with medical management. S he has no previous history of any bowel resection. Abdominal pain has improved somewhat today. She was seen by general surgery who had a NG tube placed she's had approximately 100 mL of output. Last bowel movement was yesterday which she states she had a small bowel movement and did not notice any blood. She had one episode of emesis early in the morning but nausea and vomiting has improved as well. We will continue with Solu-Medrol 20 mg IV every 8 hours, IV antibiotics and conservative management at this time. Discussed with general surgery who are agreeable. Current Visit: Yes Status: Acute Code(s): K50.90 - CROHN'S DISEASE, UNSPECIFIED, WITHOUT COMPLICATIONS SNOMED Code(s): 92062773 (2) Abdominal pain Current Visit: Yes Status: Acute Code(s): R10.9 - UNSPECIFIED ABDOMINAL PAIN SNOMED Code(s): 57122536 (3) Leukocytosis Current Visit: Yes Status: Acute Code(s): D72.829 - ELEVATED WHITE BLOOD CELL COUNT, UNSPECIFIED SNOMED Code(s): 203049423 (4) Small bowel obstruction Narrative/Plan: General surgery following closely. Proceeding with medical management at this time. Current Visit: Yes Status: Acute Code(s): K56.609 - UNSP INTESTNL OBST, UNSP TO PARTIAL VERSUS COMPLETE OBST SNOMED Code(s): 493442773 Plan: 1. Continue symptomatic and supportive care 2. Keep nothing by mouth except for ice chips 3. NG tube per recommendations from general surgery 4. Solu-Medrol 20 mg IV every 8 hours 5. Continue with IV antibiotics 6. Gen. surgery on consult, appreciate their recommendations 7. Recommend conservative medical management at this time Thank you for this consultation, we will continue to follow. Dr. Carisa Suazo I agree with the dictator's note, documented as a scribe by Odilia Heredia.
[2021-06-29 17:19] LABS: Glucose,Whole Blood 105 mg/dL (75-99)
[2021-06-29 20:05] LABS: Glucose,Whole Blood 107 mg/dL (75-99)
[2021-06-29] MEDS: MONTELUKAST 10 MG TAB PO SCH (21:59)
[2021-06-29] MEDS: HYDROmorphone 1 MG/ML 1 ML SYRINGE IVP PRN (21:59)
[2021-06-30] MEDS: SODIUM CHLORIDE 0.9% 1,000 ML IV SCH ×2 (04:44→12:51)
[2021-06-30 07:36] LABS: Glucose,Whole Blood 96 mg/dL (75-99)
--- NOTE | 2021-06-30 08:43 | P.PN ---
Subjective Progress Note Date: 06/30/21 Patient seen and examined at bedside. States she is feeling a lot better. Having flatus. Still having some abdominal soreness. Denies any further emesis episodes after yesterday morning. Objective - Vital Signs Vital signs: Vital Signs Temp 97.6 F 06/30/21 03:33 Pulse 70 06/30/21 03:33 Resp 18 06/30/21 03:33 BP 156/87 06/30/21 03:33 Pulse Ox 94 L 06/30/21 03:33 Intake & Output 06/29/21 06/30/21 06/30/21 18:59 06:59 18:59 Intake Total 1140 Output Total 700 Balance 440 Intake: Intake, IV Titration 1140 Amount Piperacillin-Tazobactam 3 100 .375 gm In Sodium Chloride 0.9% 100 ml @ 25 mls/hr IVPB Q8HR [facility] Rx# :[id number] Sodium Chloride 0.9% 1, 1040 000 ml @ 130 mls/hr IV . Q7H42M [facility] Rx#:[id number] Output: Emesis 700 Other: Voiding Method Bedside Commode Bedside Commode # Voids 3 2 # Bowel Movements 0 - Constitutional General appearance: Present: cooperative, no acute distress - Gastrointestinal Gastrointestinal Comment(s): Soft, mild distention, nontender, no rebound, no guarding - Musculoskeletal Musculoskeletal: Present: generalized weakness - Psychiatric Psychiatric: Present: A&O x's 3 - Labs CBC & Chem 7: 06/29/21 05:52 06/29/21 05:52 Labs: Abnormal Lab Results - Last 24 Hours (Table) 06/29/21 06/29/21 06/29/21 Range/Units 05:52 05:52 12:11 WBC 13.48 H (4.50-10.00) X 10*3/uL RBC 3.37 L (4.10-5.20) X 10*6/uL Hgb 10.7 L (12.0-15.0) g/dL Hct 33.9 L (37.2-46.3) % MCV 100.6 H (80.0-97.0) fL MCHC 31.6 L (32.0-37.0) g/dL Immature Gran # 0.11 H (0.00-0.04) X 10*3/uL Neutrophils # 12.23 H (1.80-7.70) X 10*3/uL Lymphocytes # 0.70 L (0.90-5.00) X 10*3/uL Eosinophils # 0 L (0.04-0.35) X 10*3/uL Anion Gap 9.60 L (10.00-18.00) mmol/L BUN/Creatinine Ratio 24.75 H (12.00-20.00) Ratio Glucose 118 H (70-110) mg/dL POC Glucose (mg/dL) 124 H (75-99) mg/dL Calcium 8.6 L (8.7-10.3) mg/dL 06/29/21 06/29/21 Range/Units 17:17 20:04 WBC (4.50-10.00) X 10*3/uL RBC (4.10-5.20) X 10*6/uL Hgb (12.0-15.0) g/dL Hct (37.2-46.3) % MCV (80.0-97.0) fL MCHC (32.0-37.0) g/dL Immature Gran # (0.00-0.04) X 10*3/uL Neutrophils # (1.80-7.70) X 10*3/uL Lymphocytes # (0.90-5.00) X 10*3/uL Eosinophils # (0.04-0.35) X 10*3/uL Anion Gap (10.00-18.00) mmol/L BUN/Creatinine Ratio (12.00-20.00) Ratio Glucose (70-110) mg/dL POC Glucose (mg/dL) 105 H 107 H (75-99) mg/dL Calcium (8.7-10.3) mg/dL Microbiology - Last 24 Hours (Table) 06/27/21 14:26 Blood Culture - Preliminary Blood No Growth after 48 hours 06/27/21 14:15 Blood Culture - Preliminary Blood No Growth after 48 hours Assessment and Plan Plan: Patient appears to have some improvement in the small bowel obstruction with more flatus. She states that her abdominal distention is decreasing and she is feeling better. She states her emesis is also resolved. We will plan for an abdominal x-ray this morning for further evaluation. Patient would like to try clamping her NG tube with clears as she feels she is improving. We will make that decision after x-rays performed.
--- NOTE | 2021-06-30 09:39 | XR ---
EXAMINATION TYPE: XR abdomen complete w decub DATE OF EXAM: 06/30/2021 HISTORY: Pain. Technique: 3 views of the abdomen are submitted. Comparison: None. Findings: There is no convincing evidence of pneumoperitoneum. The Bowel gas pattern is nonspecific and nonobstructive. No sizable air-fluid levels are seen. No mass effects are noted. No renal calcifications are identified. IMPRESSION: 1. Nonspecific nonobstructive bowel gas pattern
[2021-06-30] MEDS: INSULIN ASPART (NovoLOG) 100 UNIT/ML VIAL SQ SCH ×4 (10:09→22:23)
[2021-06-30] MEDS: PIPERACILLIN-TAZOBACTAM 3.375 GM in SODIUM CHLORIDE 0.9% 100 ML IVPB SCH ×2 (10:20→17:15)
[2021-06-30] MEDS: methylPREDNISolone SOD SUCCI 40 MG/ML 1 ML VIAL IV SCH ×2 (10:20→17:15)
[2021-06-30] MEDS: HEPARIN SODIUM,PORCINE/PF 5,000 UNIT/0.5 ML SYRINGE SQ SCH ×2 (10:27→17:14)
[2021-06-30] MEDS: BALSALAZIDE DISODIUM 750 MG CAPSULE PO SCH ×2 (10:28→17:14)
[2021-06-30] MEDS: ASPIRIN 81 MG PO SCH (10:28)
[2021-06-30] MEDS: PANTOPRAZOLE 40 MG/10 ML VIAL IVP SCH (10:28)
[2021-06-30] MEDS: GABAPENTIN 100 MG CAP PO SCH ×3 (10:28→22:23)
[2021-06-30] MEDS: VENLAFAXINE HCL ER 150 MG CAP PO SCH (10:30)
[2021-06-30 12:19] LABS: Glucose,Whole Blood 102 mg/dL (75-99)
--- NOTE | 2021-06-30 12:50 | P.PN ---
Subjective Progress Note Date: 06/30/21 Principal diagnosis: Small bowel obstruction, Crohn's disease 46-year-old female seen as a follow-up for abdominal pain. She was found on CT to have a small bowel obstruction for which Gen. surgery is following. She has a long-standing history of Crohn's disease. Abdominal pain continues to improve. She's had no further nausea or vomiting since yesterday morning. She is passing flatus. She's been nothing by mouth with ice chips. Gen. surgery is considering clamping her NG tube and possibly allowing clear liquid diet depending on x-ray result. Objective - Vital Signs Vital signs: Vital Signs Temp 97.6 F 06/30/21 03:33 Pulse 70 06/30/21 03:33 Resp 18 06/30/21 03:33 BP 156/87 06/30/21 03:33 Pulse Ox 94 L 06/30/21 03:33 Intake & Output 06/29/21 06/30/21 06/30/21 18:59 06:59 18:59 Intake Total 1140 Output Total 700 Balance 440 Intake: Intake, IV Titration 1140 Amount Piperacillin-Tazobactam 3 100 .375 gm In Sodium Chloride 0.9% 100 ml @ 25 mls/hr IVPB Q8HR [facility] Rx# :[id number] Sodium Chloride 0.9% 1, 1040 000 ml @ 130 mls/hr IV . Q7H42M [facility] Rx#:[id number] Output: Emesis 700 Other: Voiding Method Bedside Commode Bedside Commode # Voids 3 2 # Bowel Movements 0 - Exam General appearance: The patient is alert, oriented, appears in no acute distress. HET: Head is normocephalic and atraumatic. Conjunctiva pink. Sclera anicteric. NG tube in place with suction. Neck: Supple without lymphadenopathy. Abdomen: Soft, mild tenderness in the lower abdomen, nondistended with bowel sounds. No guarding or rigidity. Extremities: Normal skin color and turgor. No pedal edema Skin: No rashes, no jaundice Neurological: No focal deficits. Alert and oriented 3. - Labs CBC & Chem 7: 06/29/21 05:52 06/29/21 05:52 Labs: Abnormal Lab Results - Last 24 Hours (Table) 06/29/21 06/29/21 06/29/21 Range/Units 12:11 17:17 20:04 POC Glucose (mg/dL) 124 H 105 H 107 H (75-99) mg/dL Microbiology - Last 24 Hours (Table) 06/27/21 14:26 Blood Culture - Preliminary Blood No Growth after 48 hours 06/27/21 14:15 Blood Culture - Preliminary Blood No Growth after 48 hours Assessment and Plan (1) Crohn's disease Narrative/Plan: 38-year-old female well known to gastroenterology with a history of Crohn's disease diagnosed 10-15 years ago. Patient currently on Pentase. She presented to the emergency department yesterday after experiencing abdominal pain with nausea and vomiting. Patient has a history of small bowel obstruction in the past usually gets them every 2-3 years and resolves with medical management. She has no previous history of any bowel resection. Abdominal pain has improved somewhat today. She was seen by general surgery who had a NG tube placed she's had approximately 100 mL of output. Last bowel movement was yesterday which she states she had a small bowel movement and did not notice any blood. She had one episode of emesis early in the morning but nausea and vomiting has improved as well. We will continue with Solu-Medrol 20 mg IV every 8 hours, IV antibiotics and conservative management at this time. Discussed with general surgery who are agreeable. Current Visit: Yes Status: Acute Code(s): K50.90 - CROHN'S DISEASE, UNSPECIFIED, WITHOUT COMPLICATIONS SNOMED Code(s): 99780419 (2) Abdominal pain Current Visit: Yes Status: Acute Code(s): R10.9 - UNSPECIFIED ABDOMINAL PAIN SNOMED Code(s): 69580624 (3) Leukocytosis Current Visit: Yes Status: Acute Code(s): D72.829 - ELEVATED WHITE BLOOD CELL COUNT, UNSPECIFIED SNOMED Code(s): 163362094 (4) Small bowel obstruction Narrative/Plan: General surgery following closely. Proceeding with medical management at this time. Current Visit: Yes Status: Acute Code(s): K56.609 - UNSP INTESTNL OBST, UNSP TO PARTIAL VERSUS COMPLETE OBST SNOMED Code(s): 780438174 Plan: 1. Continue symptomatic and supportive care 2. Diet per recommendations from general surgery 3. NG tube per recommendations from general surgery 4. Solu-Medrol 20 mg IV every 8 hours, will transition to oral prednisone with taper dose on discharge 5. Gen. surgery on consult, appreciate their recommendations 6. Recommend conservative medical management at this time Thank you for this consultation, we will continue to follow. Dr. Carisa Suazo I agree with the dictator's note, documented as a scribe by Odilia Heredia.
--- NOTE | 2021-06-30 13:13 | P.PN ---
Subjective Progress Note Date: 06/30/21 Hospital course: Patient is a very pleasant 38-year-old female with a past medical history of Crohn's disease who presented to the emergency department with a chief complaint of abdominal pain on 06/27/21. Patient was found to have a bowel obstruction likely secondary to a Crohn's exacerbation. CT abdomen and pelvis revealing moderate dilation of the small bowel measuring up to 3.2 cm with small amount of free fluid in the pelvis, patient with several areas of stricturing and at least one focal adhesion of the distal small bowel which represents sequelae of inflammatory bowel disease. Patient had an NG tube placed to low intermittent suction to decompress her bowels. She was started on IV antibiotics Zosyn and steroids. Patient was admitted under our services of consultation to GI and general surgery. Physical exam: Patient seen and fully evaluated at bedside this morning. NG tube remains in place to low intermittent suction with continued dark brown gastric output totaling 700 mL over the past 24 hours. Patient denies experiencing any dizziness, lightheadedness, chest pain, palpitations, shortness of breath, or having any further episodes of nausea or vomiting and reports improvement in abdominal discomfort. Abdomen remains softly distended. Patient reports increased flatus, but continues to deny ability to have a bowel movement at this time. Blood cultures showing no growth after 48 hours. Patient to undergo abdominal x-ray this morning. Vital signs reviewed and stable. General: Nontoxic, no distress and appears stated age. Derm: Skin warm and dry, normal coloration for ethnicity. Head: Atraumatic, normocephalic and symmetric. Eyes: EOMs intact, no lid lag, and anicteric sclera Mouth: no lip lesions, mucus membranes moist Cardiovascular: regular rate and rhythm with normal S1S2, no murmur, positive posterior tibial pulses bilaterally, and cap refill < 2 seconds. Lungs: Respirations even, regular, and unlabored on room air. Lungs CTA bilaterally, no rhonchi, no rales, no wheezing, and no accessory muscle usage. Abdominal: Soft distended nontender upon palpation. No guarding. Ext: ROM intact. No gross muscle atrophy, no edema, no contractures Neuro: Speech clear, face symmetrical and CN II-XII grossly intact with no noted focal neuro deficits Psych: Alert and oriented to person, place, time, and situation. Appropriate and pleasant affect. Assessment and Plan of Care: Acute Crohn's exacerbation with small bowel obstruction -Continue IV Solu-Medrol 20 mg every 8 hours -Continue IV antibiotic Zosyn. -Blood culture showing no growth after 48 hours -Continue NG tube to low intermittent suction for decompression -Keep patient Nothing by mouth -Continued hydration with IV fluids -Gen. surgery following recommending continued medical management, no plans for surgical intervention at this time. -Patient is passing flatus Iron deficiency anemia -Hold iron supplements in the setting of bowel obstruction -Hemoglobin stable with no overt signs of bleeding Hyperglycemia likely reactive -Hemoglobin A1c 5.8% -Sliding-scale insulin Asthma -Stable CODE STATUS: Full code DVT prophylaxis: Subcu heparin Discussed with: Patient, RN Anticipated length of stay > than [address]: Home A total of 35 minutes was spent on the care of this complex patient more than 50% of the time was spent in counseling and care coordination. Objective - Vital Signs Vital signs: Vital Signs Temp 97.6 F 06/30/21 03:33 Pulse 70 06/30/21 03:33 Resp 18 06/30/21 03:33 BP 156/87 06/30/21 03:33 Pulse Ox 94 L 06/30/21 03:33 Intake & Output 06/29/21 06/30/21 06/30/21 18:59 06:59 18:59 Intake Total 1140 Output Total 700 Balance 440 Intake: Intake, IV Titration 1140 Amount Piperacillin-Tazobactam 3 100 .375 gm In Sodium Chloride 0.9% 100 ml @ 25 mls/hr IVPB Q8HR [facility] Rx# :[id number] Sodium Chloride 0.9% 1, 1040 000 ml @ 130 mls/hr IV . Q7H42M [facility] Rx#:[id number] Output: Emesis 700 Other: Voiding Method Bedside Commode Bedside Commode # Voids 3 2 # Bowel Movements 0 - Labs CBC & Chem 7: 06/29/21 05:52 06/29/21 05:52 Labs: Abnormal Lab Results - Last 24 Hours (Table) 06/29/21 06/29/21 06/29/21 Range/Units 05:52 05:52 12:11 WBC 13.48 H (4.50-10.00) X 10*3/uL RBC 3.37 L (4.10-5.20) X 10*6/uL Hgb 10.7 L (12.0-15.0) g/dL Hct 33.9 L (37.2-46.3) % MCV 100.6 H (80.0-97.0) fL MCHC 31.6 L (32.0-37.0) g/dL Immature Gran # 0.11 H (0.00-0.04) X 10*3/uL Neutrophils # 12.23 H (1.80-7.70) X 10*3/uL Lymphocytes # 0.70 L (0.90-5.00) X 10*3/uL Eosinophils # 0 L (0.04-0.35) X 10*3/uL Anion Gap 9.60 L (10.00-18.00) mmol/L BUN/Creatinine Ratio 24.75 H (12.00-20.00) Ratio Glucose 118 H (70-110) mg/dL POC Glucose (mg/dL) 124 H (75-99) mg/dL Calcium 8.6 L (8.7-10.3) mg/dL 06/29/21 06/29/21 Range/Units 17:17 20:04 WBC (4.50-10.00) X 10*3/uL RBC (4.10-5.20) X 10*6/uL Hgb (12.0-15.0) g/dL Hct (37.2-46.3) % MCV (80.0-97.0) fL MCHC (32.0-37.0) g/dL Immature Gran # (0.00-0.04) X 10*3/uL Neutrophils # (1.80-7.70) X 10*3/uL Lymphocytes # (0.90-5.00) X 10*3/uL Eosinophils # (0.04-0.35) X 10*3/uL Anion Gap (10.00-18.00) mmol/L BUN/Creatinine Ratio (12.00-20.00) Ratio Glucose (70-110) mg/dL POC Glucose (mg/dL) 105 H 107 H (75-99) mg/dL Calcium (8.7-10.3) mg/dL Microbiology - Last 24 Hours (Table) 06/27/21 14:26 Blood Culture - Preliminary Blood No Growth after 48 hours 06/27/21 14:15 Blood Culture - Preliminary Blood No Growth after 48 hours
[2021-06-30] MEDS: DEXTROSE 5%-0.45% NACL 1,000 ML IV SCH (14:11)
[2021-06-30 17:24] LABS: Glucose,Whole Blood 109 mg/dL (75-99)
[2021-06-30 20:39] LABS: Glucose,Whole Blood 156 mg/dL (75-99)
[2021-06-30] MEDS: MONTELUKAST 10 MG TAB PO SCH (22:23)
[2021-07-01] MEDS: PIPERACILLIN-TAZOBACTAM 3.375 GM in SODIUM CHLORIDE 0.9% 100 ML IVPB SCH ×3 (00:54→15:21)
[2021-07-01] MEDS: methylPREDNISolone SOD SUCCI 40 MG/ML 1 ML VIAL IV SCH ×2 (00:54→07:32)
[2021-07-01] MEDS: HEPARIN SODIUM,PORCINE/PF 5,000 UNIT/0.5 ML SYRINGE SQ SCH ×3 (00:54→15:21)
[2021-07-01] MEDS: BALSALAZIDE DISODIUM 750 MG CAPSULE PO SCH ×4 (00:55→21:04)
[2021-07-01] MEDS: DEXTROSE 5%-0.45% NACL 1,000 ML IV SCH ×3 (03:37→20:28)
[2021-07-01 06:34] LABS: HCT 34.3 % (34.0-46.0); MCH 33.5 pg (25.0-35.0); MCHC 33.8 g/dL (31.0-37.0); MCV 99.1 fL (80.0-100.0); Mean Platelet Volume 8.1; Platelet Count 224 k/uL (150-450); RBC 3.46 m/uL (3.80-5.40); RDW 11.9 % (11.5-15.5); WBC 9.5 k/uL (3.8-10.6)
[2021-07-01 06:36] LABS: HGB 11.6 gm/dL (11.4-16.0)
[2021-07-01 06:57] LABS: ALT 41 U/L (4-34); AST 37 U/L (14-36); African American GFR (CKD) >90 (>60 ml/min/1.73 sqM); Albumin 3.2 g/dL (3.5-5.0); Albumin/Globulin Ratio 1.1; Alkaline Phosphatase 74 U/L (38-126); Anion Gap 5 mmol/L; Blood Urea Nitrogen 12 mg/dL (7-17); Calcium 8.3 mg/dL (8.4-10.2); Carbon Dioxide 25 mmol/L (22-30); Chloride 105 mmol/L (98-107); Globulin 2.8 g/dL; Glucose 157 mg/dL (74-99); Magnesium 1.9 mg/dL (1.6-2.3); Non-African American GFR(CKD) >90 (>60 ml/min/1.73 sqM); Potassium 3.9 mmol/L (3.5-5.1); Sodium 135 mmol/L (137-145); Total Bilirubin 0.4 mg/dL (0.2-1.3)
[2021-07-01] MEDS: ASPIRIN 81 MG PO SCH (07:31)
[2021-07-01] MEDS: GABAPENTIN 100 MG CAP PO SCH ×3 (07:31→21:05)
[2021-07-01] MEDS: PANTOPRAZOLE 40 MG/10 ML VIAL IVP SCH (07:32)
[2021-07-01] MEDS: VENLAFAXINE HCL ER 150 MG CAP PO SCH (07:32)
[2021-07-01 07:43] LABS: Glucose,Whole Blood 123 mg/dL (75-99)
[2021-07-01] MEDS: INSULIN ASPART (NovoLOG) 100 UNIT/ML VIAL SQ SCH ×4 (07:48→21:05)
--- NOTE | 2021-07-01 11:59 | P.PN ---
Subjective Progress Note Date: 07/01/21 Patient seen and examined at bedside. She states she is feeling much better today. She states she has had 8 bowel movements. Denies nausea or vomiting with the clear liquids. Objective - Vital Signs Vital signs: Vital Signs Temp 98.5 F 07/01/21 05:00 Pulse 72 07/01/21 05:00 Resp 20 07/01/21 05:00 BP 157/84 07/01/21 05:00 Pulse Ox 99 07/01/21 05:00 Intake & Output 06/30/21 07/01/21 07/01/21 18:59 06:59 18:59 Intake Total 1600 Output Total 3 Balance 1600 -3 Intake: Intake, IV Titration 400 Amount Dextrose 5%-0.45% NaCl 1, 400 000 ml @ 100 mls/hr IV . Q10H [facility] Rx#:[id number] Oral 1200 Output: Urine/Stool Mix 3 Other: Voiding Method Bedside Commode Bedside Commode # Voids 2 - Constitutional General appearance: Present: cooperative - Respiratory Details: No difficulty with respiration - Gastrointestinal Gastrointestinal Comment(s): Soft, nontender, much improvement and distention, no rebound, no guarding - Psychiatric Psychiatric: Present: A&O x's 3 - Labs CBC & Chem 7: 07/01/21 05:48 07/01/21 05:48 Labs: Abnormal Lab Results - Last 24 Hours (Table) 06/30/21 06/30/21 06/30/21 Range/Units 12:13 17:19 20:05 RBC (3.80-5.40) m/uL Sodium (137-145) mmol/L Glucose (74-99) mg/dL POC Glucose (mg/dL) 102 H 109 H 156 H (75-99) mg/dL Calcium (8.4-10.2) mg/dL AST (14-36) U/L ALT (4-34) U/L Total Protein (6.3-8.2) g/dL Albumin (3.5-5.0) g/dL 07/01/21 07/01/21 07/01/21 Range/Units 05:48 05:48 07:41 RBC 3.46 L (3.80-5.40) m/uL Sodium 135 L (137-145) mmol/L Glucose 157 H (74-99) mg/dL POC Glucose (mg/dL) 123 H (75-99) mg/dL Calcium 8.3 L (8.4-10.2) mg/dL AST 37 H (14-36) U/L ALT 41 H (4-34) U/L Total Protein 6.0 L (6.3-8.2) g/dL Albumin 3.2 L (3.5-5.0) g/dL Microbiology - Last 24 Hours (Table) 06/27/21 14:15 Blood Culture - Preliminary Blood No Growth after 72 hours 06/27/21 14:26 Blood Culture - Preliminary Blood No Growth after 72 hours Assessment and Plan Plan: 38-year-old female with Crohn's ileitis and concern for small bowel obstruction. The obstruction appears to be relieving as the patient has had multiple bowel movements and is tolerating diet. We will discontinue the nasogastric tube and begin the patient on a full liquid diet today. Continue GI recommendations on Crohn's ileitis.
[2021-07-01 12:52] LABS: Glucose,Whole Blood 127 mg/dL (75-99)
--- NOTE | 2021-07-01 14:12 | P.PN ---
Subjective Progress Note Date: 07/01/21 Hospital course: Patient is a very pleasant 38-year-old female with a past medical history of Crohn's disease who presented to the emergency department with a chief complaint of abdominal pain on 06/27/21. Patient was found to have a bowel obstruction likely secondary to a Crohn's exacerbation. CT abdomen and pelvis revealing moderate dilation of the small bowel measuring up to 3.2 cm with small amount of free fluid in the pelvis, patient with several areas of stricturing and at least one focal adhesion of the distal small bowel which represents sequelae of inflammatory bowel disease. Patient had an NG tube placed to low intermittent suction to decompress her bowels. She was started on IV antibiotics Zosyn and steroids. Patient was admitted under our services of consultation to GI and general surgery. Physical exam: Patient seen and fully evaluated at bedside this morning. NG tube remains in place, but is currently clamped. Patient has been tolerating clear liquid diet. She reports not only passing flatus but states she has had 7 episodes of diarrhea since last night. She currently denies experiencing any dizziness, lightheadedness, chest pain, palpitations, shortness of breath, abdominal pain, nausea, or vomiting. Blood culture showing no growth after 72 hours. Morning labs unremarkable. Patient to continue clear liquid diet and remain on IV hydration with D5.45 until diet is advanced by general surgery. Anticipate likely removal of NG tube with advancement of diet later today after evaluated by general surgery. Vital signs reviewed and stable. General: Nontoxic, no distress and appears stated age. Derm: Skin warm and dry, normal coloration for ethnicity. Head: Atraumatic, normocephalic and symmetric. Eyes: EOMs intact, no lid lag, and anicteric sclera Mouth: no lip lesions, mucus membranes moist Cardiovascular: regular rate and rhythm with normal S1S2, no murmur, positive posterior tibial pulses bilaterally, and cap refill < 2 seconds. Lungs: Respirations even, regular, and unlabored on room air. Lungs CTA bilaterally, no rhonchi, no rales, no wheezing, and no accessory muscle usage. Abdominal: Soft distended nontender upon palpation. No guarding. Ext: ROM intact. No gross muscle atrophy, no edema, no contractures Neuro: Speech clear, face symmetrical and CN II-XII grossly intact with no noted focal neuro deficits Psych: Alert and oriented to person, place, time, and situation. Appropriate and pleasant affect. Assessment and Plan of Care: Acute Crohn's exacerbation with small bowel obstruction, appears to be improving -Patient remains on IV Solu-Medrol 20 mg every 8 hours -Continue IV antibiotic Zosyn. -Blood culture showing no growth after 48 hours -Continue NG tube to low intermittent suction for decompression -Tolerating clear liquid diet -Continued hydration with D5.45 until diet is advanced -Gen. surgery following recommending continued medical management, no plans for surgical intervention at this time. -GI following, appreciate further recommendations. -Patient is passing flatus and reports 7 episodes of diarrhea since last night. Iron deficiency anemia -Hold iron supplements in the setting of bowel obstruction -Hemoglobin stable with no overt signs of bleeding Hyperglycemia likely reactive -Hemoglobin A1c 5.8% -Sliding-scale insulin Asthma -Stable CODE STATUS: Full code DVT prophylaxis: Subcu heparin Discussed with: Patient, RN Anticipated length of stay: Clinical course to determine Anticipated discharge place: Home A total of 40 minutes was spent on the care of this complex patient more than 50% of the time was spent in counseling and care coordination. Objective - Vital Signs Vital signs: Vital Signs Temp 98.5 F 07/01/21 05:00 Pulse 72 07/01/21 05:00 Resp 20 07/01/21 05:00 BP 157/84 07/01/21 05:00 Pulse Ox 99 07/01/21 05:00 Intake & Output 06/30/21 07/01/21 07/01/21 18:59 06:59 18:59 Intake Total 1600 Output Total 3 Balance 1600 -3 Intake: Intake, IV Titration 400 Amount Dextrose 5%-0.45% NaCl 1, 400 000 ml @ 100 mls/hr IV . Q10H [facility] Rx#:[id number] Oral 1200 Output: Urine/Stool Mix 3 Other: Voiding Method Bedside Commode Bedside Commode # Voids 2 - Labs CBC & Chem 7: 07/01/21 05:48 07/01/21 05:48 Labs: Abnormal Lab Results - Last 24 Hours (Table) 06/30/21 06/30/21 06/30/21 Range/Units 12:13 17:19 20:05 RBC (3.80-5.40) m/uL Sodium (137-145) mmol/L Glucose (74-99) mg/dL POC Glucose (mg/dL) 102 H 109 H 156 H (75-99) mg/dL Calcium (8.4-10.2) mg/dL AST (14-36) U/L ALT (4-34) U/L Total Protein (6.3-8.2) g/dL Albumin (3.5-5.0) g/dL 07/01/21 07/01/21 07/01/21 Range/Units 05:48 05:48 07:41 RBC 3.46 L (3.80-5.40) m/uL Sodium 135 L (137-145) mmol/L Glucose 157 H (74-99) mg/dL POC Glucose (mg/dL) 123 H (75-99) mg/dL Calcium 8.3 L (8.4-10.2) mg/dL AST 37 H (14-36) U/L ALT 41 H (4-34) U/L Total Protein 6.0 L (6.3-8.2) g/dL Albumin 3.2 L (3.5-5.0) g/dL Microbiology - Last 24 Hours (Table) 06/27/21 14:15 Blood Culture - Preliminary Blood No Growth after 72 hours 06/27/21 14:26 Blood Culture - Preliminary Blood No Growth after 72 hours
--- NOTE | 2021-07-01 15:51 | P.PN ---
Subjective Progress Note Date: 07/01/21 Principal diagnosis: Small bowel obstruction, Crohn's disease 46-year-old female seen as a follow-up for abdominal pain. She was found on CT to have a small bowel obstruction for which Gen. surgery is following. She has a long-standing history of Crohn's disease. Patient trialed NG tube being clamped yesterday with clear liquid diet. She had no nausea or vomiting. She had a bowel movements between yesterday evening and today. NG tube was removed. Patient is continued on a clear liquid diet and will advance to full liquid diet for lunch. She denies any blood in her stool. She denies any abdominal pain. Objective - Vital Signs Vital signs: Vital Signs Temp 98.5 F 07/01/21 05:00 Pulse 72 07/01/21 05:00 Resp 20 07/01/21 05:00 BP 157/84 07/01/21 05:00 Pulse Ox 99 07/01/21 05:00 Intake & Output 06/30/21 07/01/21 07/01/21 18:59 06:59 18:59 Intake Total 1600 Output Total 3 Balance 1600 -3 Intake: Intake, IV Titration 400 Amount Dextrose 5%-0.45% NaCl 1, 400 000 ml @ 100 mls/hr IV . Q10H [facility] Rx#:[id number] Oral 1200 Output: Urine/Stool Mix 3 Other: Voiding Method Bedside Commode Bedside Commode # Voids 2 - Exam General appearance: The patient is alert, oriented, appears in no acute distress. HET: Head is normocephalic and atraumatic. Conjunctiva pink. Sclera anicteric. Neck: Supple without lymphadenopathy. Abdomen: Soft, nontender, nondistended with bowel sounds. No guarding or rigidity. Extremities: Normal skin color and turgor. No pedal edema Skin: No rashes, no jaundice Neurological: No focal deficits. Alert and oriented 3. - Labs CBC & Chem 7: 07/01/21 05:48 07/01/21 05:48 Labs: Abnormal Lab Results - Last 24 Hours (Table) 06/30/21 06/30/21 06/30/21 Range/Units 12:13 17:19 20:05 RBC (3.80-5.40) m/uL Sodium (137-145) mmol/L Glucose (74-99) mg/dL POC Glucose (mg/dL) 102 H 109 H 156 H (75-99) mg/dL Calcium (8.4-10.2) mg/dL AST (14-36) U/L ALT (4-34) U/L Total Protein (6.3-8.2) g/dL Albumin (3.5-5.0) g/dL 07/01/21 07/01/21 07/01/21 Range/Units 05:48 05:48 07:41 RBC 3.46 L (3.80-5.40) m/uL Sodium 135 L (137-145) mmol/L Glucose 157 H (74-99) mg/dL POC Glucose (mg/dL) 123 H (75-99) mg/dL Calcium 8.3 L (8.4-10.2) mg/dL AST 37 H (14-36) U/L ALT 41 H (4-34) U/L Total Protein 6.0 L (6.3-8.2) g/dL Albumin 3.2 L (3.5-5.0) g/dL Microbiology - Last 24 Hours (Table) 06/27/21 14:15 Blood Culture - Preliminary Blood No Growth after 72 hours 06/27/21 14:26 Blood Culture - Preliminary Blood No Growth after 72 hours Assessment and Plan (1) Crohn's disease Narrative/Plan: 38-year-old female well known to gastroenterology with a history of Crohn's disease diagnosed 10-15 years ago. Patient currently on Pentase. She presented to the emergency department yesterday after experiencing abdominal pain with na usea and vomiting. Patient has a history of small bowel obstruction in the past usually gets them every 2-3 years and resolves with medical management. She has no previous history of any bowel resection. Abdominal pain has improved somewhat today. She was seen by general surgery who had a NG tube placed she's had approximately 100 mL of output. Last bowel movement was yesterday which she states she had a small bowel movement and did not notice any blood. She had one episode of emesis early in the morning but nausea and vomiting has improved as well. We will continue with Solu-Medrol 20 mg IV every 8 hours, IV antibiotics and conservative management at this time. Discussed with general surgery who are agreeable. Transition to oral prednisone 40 mg tomorrow with a tapered dose of 5 mg per week on discharge. Current Visit: Yes Status: Acute Code(s): K50.90 - CROHN'S DISEASE, UNSPECIFIED, WITHOUT COMPLICATIONS SNOMED Code(s): 94508549 (2) Small bowel obstruction Narrative/Plan: General surgery following closely. Proceeding with medical management at this time. NG tube discontinued, patient's diet advanced. She is having multiple bowel movements. Current Visit: Yes Status: Acute Code(s): K56.609 - UNSP INTESTNL OBST, UNSP TO PARTIAL VERSUS COMPLETE OBST SNOMED Code(s): 316789388 (3) Abdominal pain Current Visit: Yes Status: Acute Code(s): R10.9 - UNSPECIFIED ABDOMINAL PAIN SNOMED Code(s): 69282601 (4) Leukocytosis Current Visit: Yes Status: Acute Code(s): D72.829 - ELEVATED WHITE BLOOD CE LL COUNT, UNSPECIFIED SNOMED Code(s): 433560180 Plan: 1. Continue symptomatic and supportive care 2. Diet per recommendations from general surgery 3. Transition to oral prednisone 40 mg daily 4. Gen. surgery on consult, appreciate their recommendations 5. Patient to be discharged on prednisone 40 mg taper dose by 5 mg per week Thank you for this consultation, we will continue to follow. Dr. Carisa Suazo I agree with the dictator's note, documented as a scribe by Odilia Heredia.
[2021-07-01 17:53] LABS: Glucose,Whole Blood 106 mg/dL (75-99)
[2021-07-01 20:14] LABS: Glucose,Whole Blood 120 mg/dL (75-99)
[2021-07-01] MEDS: MONTELUKAST 10 MG TAB PO SCH (21:05)
[2021-07-02] MEDS: HEPARIN SODIUM,PORCINE/PF 5,000 UNIT/0.5 ML SYRINGE SQ SCH ×4 (00:57→23:19)
[2021-07-02] MEDS: PIPERACILLIN-TAZOBACTAM 3.375 GM in SODIUM CHLORIDE 0.9% 100 ML IVPB SCH ×2 (00:57→08:52)
[2021-07-02] MEDS: DEXTROSE 5%-0.45% NACL 1,000 ML IV SCH ×2 (06:58→08:53)
[2021-07-02 07:19] LABS: Glucose,Whole Blood 96 mg/dL (75-99)
[2021-07-02] MEDS: INSULIN ASPART (NovoLOG) 100 UNIT/ML VIAL SQ SCH ×4 (07:42→21:42)
[2021-07-02] MEDS: PANTOPRAZOLE 40 MG/10 ML VIAL IVP SCH (08:52)
[2021-07-02] MEDS: predniSONE 20 MG TAB PO SCH (08:53)
[2021-07-02] MEDS: GABAPENTIN 100 MG CAP PO SCH ×3 (08:53→21:43)
[2021-07-02] MEDS: BALSALAZIDE DISODIUM 750 MG CAPSULE PO SCH ×3 (08:53→21:43)
[2021-07-02] MEDS: ASPIRIN 81 MG PO SCH (08:53)
[2021-07-02] MEDS: VENLAFAXINE HCL ER 150 MG CAP PO SCH (08:53)
[2021-07-02 09:30] LABS: HCT 34.7 % (37.2-46.3); HGB 11.3 g/dL (12.0-15.0); MCH 31.8 pg (27.0-32.0); MCHC 32.6 g/dL (32.0-37.0); MCV 97.7 fL (80.0-97.0); Mean Platelet Volume 10.4 fL (9.5-12.2); NRBC Per 100 WBC 0 /100 WBCS (0.0-0.0); Platelet Count 214 X 10*3/uL (140-440); RBC 3.55 X 10*6/uL (4.10-5.20); RDW 11.9 % (11.5-14.5); WBC 6.96 X 10*3/uL (4.50-10.00)
[2021-07-02 09:36] LABS: Magnesium 1.9 mg/dL (1.5-2.4)
[2021-07-02 09:44] LABS: African American GFR (CKD) 112.9 (60.0-200.0); Albumin 3.3 g/dL (3.8-4.9); Albumin/Globulin Ratio 1.66 (1.60-3.17); Anion Gap 9.6 mmol/L (10.00-18.00); BUN/Creat Ratio 10.7 Ratio (12.00-20.00); Blood Urea Nitrogen 7.8 mg/dL (9.0-27.0); Calcium 8.1 mg/dL (8.7-10.3); Carbon Dioxide 25.8 mmol/L (20.0-27.5); Non-African American GFR(CKD) 97.4 (60.0-200.0); Potassium 3.7 mmol/L (3.5-5.5); Total Bilirubin 0.2 mg/dL (0.30-1.20); Total Protein 5.3 g/dL (6.2-8.2)
--- NOTE | 2021-07-02 12:28 | P.PN ---
Subjective Progress Note Date: 07/02/21 Principal diagnosis: Small bowel obstruction, Crohn's disease 46-year-old female seen as a follow-up for abdominal pain. She was found on CT to have a small bowel obstruction for which Gen. surgery is following. She has a long-standing history of Crohn's disease. NG tube was removed yesterday. Patient denies any nausea or vomiting. No abdominal pain. She had loose bowel movements again this morning. She's been tolerating a full liquid diet. No nausea or vomiting. Objective - Vital Signs Vital signs: Vital Signs Temp 98.3 F 07/02/21 04:05 Pulse 63 07/02/21 04:05 Resp 16 07/02/21 04:05 BP 141/79 07/02/21 04:05 Pulse Ox 96 07/02/21 04:05 Intake & Output 07/01/21 07/02/21 07/02/21 18:59 06:59 18:59 Intake Total 1760 1300 Balance 1760 1300 Intake: Intake, IV Titration 800 1300 Amount Dextrose 5%-0.45% NaCl 1, 600 1200 000 ml @ 100 mls/hr IV . Q10H [facility] Rx#:[id number] Piperacillin-Tazobactam 3 200 100 .375 gm In Sodium Chloride 0.9% 100 ml @ 25 mls/hr IVPB Q8HR [facility] Rx# :[id number] Oral 960 Other: Voiding Method Bedside Commode Bedside Commode # Voids 5 - Exam General appearance: The patient is alert, oriented, appears in no acute distress. HET: Head is normocephalic and atraumatic. Conjunctiva pink. Sclera anicteric. Neck: Supple without lymphadenopathy. Abdomen: Soft, nontender, nondistended with bowel sounds. No guarding or rigidity. Extremities: Normal skin color and turgor. No pedal edema Skin: No rashes, no jaundice Neurological: No focal deficits. Alert and oriented 3. - Labs CBC & Chem 7: 07/02/21 06:23 07/02/21 06:23 Labs: Abnormal Lab Results - Last 24 Hours (Table) 07/01/21 07/01/21 07/01/21 Range/Units 12:40 17:52 20:13 RBC (4.10-5.20) X 10*6/uL Hgb (12.0-15.0) g/dL Hct (37.2-46.3) % MCV (80.0-97.0) fL Anion Gap (10.00-18.00) mmol/L BUN (9.0-27.0) mg/dL BUN/Creatinine Ratio (12.00-20.00) Ratio POC Glucose (mg/dL) 127 H 106 H 120 H (75-99) mg/dL Calcium (8.7-10.3) mg/dL Total Bilirubin (0.30-1.20) mg/dL AST (13-35) U/L Total Protein (6.2-8.2) g/dL Albumin (3.8-4.9) g/dL 07/02/21 07/02/21 Range/Units 06:23 06:23 RBC 3.55 L (4.10-5.20) X 10*6/uL Hgb 11.3 L (12.0-15.0) g/dL Hct 34.7 L (37.2-46.3) % MCV 97.7 H (80.0-97.0) fL Anion Gap 9.60 L (10.00-18.00) mmol/L BUN 7.8 L (9.0-27.0) mg/dL BUN/Creatinine Ratio 10.70 L (12.00-20.00) Ratio POC Glucose (mg/dL) (75-99) mg/dL Calcium 8.1 L (8.7-10.3) mg/dL Total Bilirubin 0.20 L (0.30-1.20) mg/dL AST 11 L (13-35) U/L Total Protein 5.3 L (6.2-8.2) g/dL Albumin 3.3 L (3.8-4.9) g/dL Microbiology - Last 24 Hours (Table) 06/27/21 14:15 Blood Culture - Preliminary Blood No Growth after 96 hours 06/27/21 14:26 Blood Culture - Preliminary Blood No Growth after 96 hours Assessment and Plan (1) Crohn's disease Narrative/Plan: 38-year-old female well known to gastroenterology with a history of Crohn's disease diagnosed 10-15 years ago. Patient currently on Pentase. She presented to the emergency department yesterday after experiencing abdominal pain with nausea and vomiting. Patient has a history of small bowel obstruction in the past usually gets them every 2-3 years and resolves with medical management. She has no previous history of any bowel resection. Abdominal pain has improved somewhat today. She was seen by general surgery who had a NG tube placed she's had approximately 100 mL of output. Last bowel movement was yesterday which she states she had a small bowel movement and did not notice any blood. She had one episode of emesis early in the morning but nausea and vomiting has improved as well. We will continue with Solu-Medrol 20 mg IV every 8 hours, IV antibiotics and conservative management at this time. Discussed with general surgery who are agreeable. Transition to oral prednisone 40 mg tomorrow with a tapered dose of 5 mg per week on discharge. Current Visit: Yes Status: Acute Code(s): K50.90 - CROHN'S DISEASE, UNSPECIFIED, WITHOUT COMPLICATIONS SNOMED Code(s): 99052988 (2) Small bowel obstruction Narrative/Plan: General surgery following closely. Proceeding with medical management at this time. NG tube discontinued, patient's diet advanced. She is having multiple bowel movements. Current Visit: Yes Status: Acute Code(s): K56.609 - UNSP INTESTNL OBST, UNSP TO PARTIAL VERSUS COMPLETE OBST SNOMED Code(s): 378239981 (3) Abdominal pain Current Visit: Yes Status: Acute Code(s): R10.9 - UNSPECIFIED ABDOMINAL PAIN SNOMED Code(s): 68385917 (4) Leukocytosis Current Visit: Yes Status: Acute Code(s): D72.829 - ELEVATED WHITE BLOOD CELL COUNT, UNSPECIFIED SNOMED Code(s): 094576689 Plan: 1. Continue symptomatic and supportive care 2. Diet per recommendations from general surgery 3. Transition to oral prednisone [address] De from general surgery following patient closely 5. Patient to be discharged on prednisone 40 mg taper dose by 5 mg per week, prescription sent 6. Patient is cleared by gastroenterology for discharge Thank you for allowing us to participate in the care of the patient, the GI service will sign off, gastroenterology will not be available at the hospital this weekend and through next week. If further evaluation by gastroenterology is required the patient will need transfer as per the primary team's discretion. Dr. Carisa Suazo I agree with the dictator's note, documented as a scribe by Odilia Heredia.
[2021-07-02 12:30] LABS: Glucose,Whole Blood 100 mg/dL (75-99)
--- NOTE | 2021-07-02 13:48 | P.PN ---
Subjective Progress Note Date: 07/02/21 Patient seen and examined at bedside. No acute events. States she is tolerating full liquid diet. Having watery bowel movements. Denies nausea or vomiting. Objective - Vital Signs Vital signs: Vital Signs Temp 98.0 F 07/02/21 11:32 Pulse 62 07/02/21 11:32 Resp 18 07/02/21 11:32 BP 141/80 07/02/21 11:32 Pulse Ox 100 07/02/21 11:32 Intake & Output 07/01/21 07/02/21 07/02/21 18:59 06:59 18:59 Intake Total 1760 1300 Balance 1760 1300 Intake: Intake, IV Titration 800 1300 Amount Dextrose 5%-0.45% NaCl 1, 600 1200 000 ml @ 100 mls/hr IV . Q10H [facility] Rx#:[id number] Piperacillin-Tazobactam 3 200 100 .375 gm In Sodium Chloride 0.9% 100 ml @ 25 mls/hr IVPB Q8HR [facility] Rx# :[id number] Oral 960 Other: Voiding Method Bedside Commode Bedside Commode # Voids 5 # Bowel Movements 1 - Constitutional General appearance: Present: cooperative - Gastrointestinal Gastrointestinal Comment(s): Soft, nontender, nondistended, no rebound, no guarding - Psychiatric Psychiatric: Present: A&O x's 3 - Labs CBC & Chem 7: 07/02/21 06:23 07/02/21 06:23 Labs: Abnormal Lab Results - Last 24 Hours (Table) 07/01/21 07/01/21 07/02/21 Range/Units 17:52 20:13 06:23 RBC 3.55 L (4.10-5.20) X 10*6/uL Hgb 11.3 L (12.0-15.0) g/dL Hct 34.7 L (37.2-46.3) % MCV 97.7 H (80.0-97.0) fL Anion Gap (10.00-18.00) mmol/L BUN (9.0-27.0) mg/dL BUN/Creatinine Ratio (12.00-20.00) Ratio POC Glucose (mg/dL) 106 H 120 H (75-99) mg/dL Calcium (8.7-10.3) mg/dL Total Bilirubin (0.30-1.20) mg/dL AST (13-35) U/L Total Protein (6.2-8.2) g/dL Albumin (3.8-4.9) g/dL 07/02/21 07/02/21 Range/Units 06:23 12:29 RBC (4.10-5.20) X 10*6/uL Hgb (12.0-15.0) g/dL Hct (37.2-46.3) % MCV (80.0-97.0) fL Anion Gap 9.60 L (10.00-18.00) mmol/L BUN 7.8 L (9.0-27.0) mg/dL BUN/Creatinine Ratio 10.70 L (12.00-20.00) Ratio POC Glucose (mg/dL) 100 H (75-99) mg/dL Calcium 8.1 L (8.7-10.3) mg/dL Total Bilirubin 0.20 L (0.30-1.20) mg/dL AST 11 L (13-35) U/L Total Protein 5.3 L (6.2-8.2) g/dL Albumin 3.3 L (3.8-4.9) g/dL Microbiology - Last 24 Hours (Table) 06/27/21 14:15 Blood Culture - Preliminary Blood No Growth after 96 hours 06/27/21 14:26 Blood Culture - Preliminary Blood No Growth after 96 hours Assessment and Plan Plan: 46-year-old female with Crohn's ileitis. Significant improvement in the symptoms. Patient is having bowel movement and tolerating diet. Obstructive symptoms have resolved. Advance to soft diet. Surgically stable for discharge.
--- NOTE | 2021-07-02 14:17 | P.PN ---
<Barry Adkins - Last Filed: 07/02/21 14:04> Subjective Progress Note Date: 07/02/21 Hospital course: Patient is a very pleasant 38-year-old female with a past medical history of Cr ohn's disease who presented to the emergency department with a chief complaint of abdominal pain on 06/27/21. Patient was found to have a bowel obstruction likely secondary to a Crohn's exacerbation. CT abdomen and pelvis revealing moderate dilation of the small bowel measuring up to 3.2 cm with small amount of free fluid in the pelvis, patient with several areas of stricturing and at least one focal adhesion of the distal small bowel which represents sequelae of inflammatory bowel disease. Patient had an NG tube placed to low intermittent suction to decompress her bowels. She was started on IV antibiotics Zosyn and steroids. Patient was admitted under our services of consultation to GI and general surgery. Physical exam: Patient was seen and fully evaluated at the bedside this morning. NG tube was removed yesterday and patient's diet was advanced to full liquid. She has been tolerating full liquid diet and reports a total of 13 liquid watery bowel movements and full resolution of abdominal pain, nausea, and vomiting. Morning labs reviewed and unremarkable. General Surgery stating patient may advance diet to low fiber diet starting with dinner. We will monitor patient's tolerance of low fiber diet and if patient tolerates plan for discharge tomorrow morning. Now the patient's diet is fully advanced and she is tolerating oral intake D5 0.45 has been discontinued. Vital signs reviewed and stable. General: Nontoxic, no distress and appears stated age. Derm: Skin warm and dry, normal coloration for ethnicity. Head: Atraumatic, normocephalic and symmetric. Eyes: EOMs intact, no lid lag, and anicteric sclera Mouth: no lip lesions, mucus membranes moist Cardiovascular: regular rate and rhythm with normal S1S2, no murmur, positive posterior tibial pulses bilaterally, and cap refill < 2 seconds. Lungs: Respirations even, regular, and unlabored on room air. Lungs CTA bilaterally, no rhonchi, no rales, no wheezing, and no accessory muscle usage. Abdominal: Soft distended nontender upon palpation. No guarding. Ext: ROM intact. No gross muscle atrophy, no edema, no contractures Neuro: Speech clear, face symmetrical and CN II-XII grossly intact with no noted focal neuro deficits Psych: Alert and oriented to person, place, time, and situation. Appropriate and pleasant affect. Assessment and Plan of Care: Acute Crohn's exacerbation with small bowel obstruction, clinically resolved -Solumedrol discontinued and patient started on Prednisone taper by GI today. -Received 5 day course of IV antibiotic Zosyn. -Blood culture showing no growth after 96 hours -NG tube was discontinued 07/01/21 -Tolerating full liquid diet and to advance to low fiber diet per recommendat ions of surgery team. -Gen. surgery advanced diet, clearing pt to be discharge if she tolerates. -GI following, appreciate further recommendations. -Continues to produce liquid stool, total of 13 reported episodes. Iron deficiency anemia -Hold iron supplements in the setting of bowel obstruction -Hemoglobin stable with no overt signs of bleeding Hyperglycemia likely reactive -Hemoglobin A1c 5.8% -Sliding-scale insulin Asthma -Stable CODE STATUS: Full code DVT prophylaxis: Subcu heparin Discussed with: Patient, RN Anticipated length of stay: Likely tomorrow if pt tolerates advancement of diet with dinner. Anticipated discharge place: Home A total of 40 minutes was spent on the care of this complex patient more than 50% of the time was spent in counseling and care coordination. Objective - Vital Signs Vital signs: Vital Signs Temp 98.3 F 07/02/21 04:05 Pulse 63 07/02/21 04:05 Resp 16 07/02/21 04:05 BP 141/79 07/02/21 04:05 Pulse Ox 96 07/02/21 04:05 Intake & Output 07/01/21 07/02/21 07/02/21 18:59 06:59 18:59 Intake Total 1760 1300 Balance 1760 1300 Intake: Intake, IV Titration 800 1300 Amount Dextrose 5%-0.45% NaCl 1, 600 1200 000 ml @ 100 mls/hr IV . Q10H [facility] Rx#:[id number] Piperacillin-Tazobactam 3 200 100 .375 gm In Sodium Chloride 0.9% 100 ml @ 25 mls/hr IVPB Q8HR [facility] Rx# :[id number] Oral 960 Other: Voiding Method Bedside Commode Bedside Commode # Voids 5 # Bowel Movements 1 - Labs CBC & Chem 7: 07/02/21 06:23 07/02/21 06:23 Labs: Abnormal Lab Results - Last 24 Hours (Table) 07/01/21 07/01/21 07/01/21 Range/Units 12:40 17:52 20:13 RBC (4.10-5.20) X 10*6/uL Hgb (12.0-15.0) g/dL Hct (37.2-46.3) % MCV (80.0-97.0) fL Anion Gap (10.00-18.00) mmol/L BUN (9.0-27.0) mg/dL BUN/Creatinine Ratio (12.00-20.00) Ratio POC Glucose (mg/dL) 127 H 106 H 120 H (75-99) mg/dL Calcium (8.7-10.3) mg/dL Total Bilirubin (0.30-1.20) mg/dL AST (13-35) U/L Total Protein (6.2-8.2) g/dL Albumin (3.8-4.9) g/dL 07/02/21 07/02/21 Range/Units 06:23 06:23 RBC 3.55 L (4.10-5.20) X 10*6/uL Hgb 11.3 L (12.0-15.0) g/dL Hct 34.7 L (37.2-46.3) % MCV 97.7 H (80.0-97.0) fL Anion Gap 9.60 L (10.00-18.00) mmol/L BUN 7.8 L (9.0-27.0) mg/dL BUN/Creatinine Ratio 10.70 L (12.00-20.00) Ratio POC Glucose (mg/dL) (75-99) mg/dL Calcium 8.1 L (8.7-10.3) mg/dL Total Bilirubin 0.20 L (0.30-1.20) mg/dL AST 11 L (13-35) U/L Total Protein 5.3 L (6.2-8.2) g/dL Albumin 3.3 L (3.8-4.9) g/dL Microbiology - Last 24 Hours (Table) 06/27/21 14:15 Blood Culture - Preliminary Blood No Growth after 96 hours 06/27/21 14:26 Blood Culture - Preliminary Blood No Growth after 96 hours <Yasmine Ocampo - Last Filed: 07/02/21 15:22> Subjective Barry Adkins NP rendered care for this patient independently, reviewed the find ings and plan as documented in the note above. I did not physically speak with or examine the patient on this date. Objective - Vital Signs Vital signs: Vital Signs Temp 98.0 F 07/02/21 11:32 Pulse 62 07/02/21 11:32 Resp 18 07/02/21 11:32 BP 141/80 07/02/21 11:32 Pulse Ox 100 07/02/21 11:32 Intake & Output 07/01/21 07/02/21 07/02/21 18:59 06:59 18:59 Intake Total 1760 1300 Balance 1760 1300 Intake: Intake, IV Titration 800 1300 Amount Dextrose 5%-0.45% NaCl 1, 600 1200 000 ml @ 100 mls/hr IV . Q10H [facility] Rx#:[id number] Piperacillin-Tazobactam 3 200 100 .375 gm In Sodium Chloride 0.9% 100 ml @ 25 mls/hr IVPB Q8HR [facility] Rx# :[id number] Oral 960 Other: Voiding Method Bedside Commode Bedside Commode # Voids 5 # Bowel Movements 1 - Labs CBC & Chem 7: 07/02/21 06:23 07/02/21 06:23 Labs: Abnormal Lab Results - Last 24 Hours (Table) 07/01/21 07/01/21 07/02/21 Range/Units 17:52 20:13 06:23 RBC 3.55 L (4.10-5.20) X 10*6/uL Hgb 11.3 L (12.0-15.0) g/dL Hct 34.7 L (37.2-46.3) % MCV 97.7 H (80.0-97.0) fL Anion Gap (10.00-18.00) mmol/L BUN (9.0-27.0) mg/dL BUN/Creatinine Ratio (12.00-20.00) Ratio POC Glucose (mg/dL) 106 H 120 H (75-99) mg/dL Calcium (8.7-10.3) mg/dL Total Bilirubin (0.30-1.20) mg/dL AST (13-35) U/L Total Protein (6.2-8.2) g/dL Albumin (3.8-4.9) g/dL 07/02/21 07/02/21 Range/Units 06:23 12:29 RBC (4.10-5.20) X 10*6/uL Hgb (12.0-15.0) g/dL Hct (37.2-46.3) % MCV (80.0-97.0) fL Anion Gap 9.60 L (10.00-18.00) mmol/L BUN 7.8 L (9.0-27.0) mg/dL BUN/Creatinine Ratio 10.70 L (12.00-20.00) Ratio POC Glucose (mg/dL) 100 H (75-99) mg/dL Calcium 8.1 L (8.7-10.3) mg/dL Total Bilirubin 0.20 L (0.30-1.20) mg/dL AST 11 L (13-35) U/L Total Protein 5.3 L (6.2-8.2) g/dL Albumin 3.3 L (3.8-4.9) g/dL Microbiology - Last 24 Hours (Table) 06/27/21 14:15 Blood Culture - Preliminary Blood No Growth after 96 hours 06/27/21 14:26 Blood Culture - Preliminary Blood No Growth after 96 hours
[2021-07-02 17:17] LABS: Glucose,Whole Blood 134 mg/dL (75-99)
[2021-07-02 20:23] LABS: Glucose,Whole Blood 162 mg/dL (75-99)
[2021-07-02] MEDS: MONTELUKAST 10 MG TAB PO SCH (21:43)
[2021-07-03 04:25] VITALS: BP 153/89; PULSE 69; RESP 18; TEMP 98.5
[2021-07-03 07:02] LABS: Glucose,Whole Blood 97 mg/dL (75-99)
[2021-07-03] MEDS: HEPARIN SODIUM,PORCINE/PF 5,000 UNIT/0.5 ML SYRINGE SQ SCH (08:19)
[2021-07-03] MEDS: INSULIN ASPART (NovoLOG) 100 UNIT/ML VIAL SQ SCH (08:19)
[2021-07-03] MEDS: ASPIRIN 81 MG PO SCH (09:32)
[2021-07-03] MEDS: GABAPENTIN 100 MG CAP PO SCH (09:32)
[2021-07-03] MEDS: predniSONE 20 MG TAB PO SCH (09:32)
[2021-07-03] MEDS: PANTOPRAZOLE 40 MG/10 ML VIAL IVP SCH (09:32)
[2021-07-03] MEDS: BALSALAZIDE DISODIUM 750 MG CAPSULE PO SCH (09:33)
[2021-07-03] MEDS: VENLAFAXINE HCL ER 150 MG CAP PO SCH (09:35)
--- NOTE | 2021-07-03 11:37 | P.DS ---
<Barry Adkins - Last Filed: 07/03/21 12:40> Providers Expected date of discharge: 07/03/21 Hospital Course: Discharge Diagnosis: Acute Crohn's exacerbation with small bowel obstruction, clinically resolved Crohn's ileitis Iron deficiency anemia Hyperglycemia, resolved and was likely reactive from steroids, hemoglobin A1c is 5.8%. Asthma Hospital Course: Patient is a very pleasant 38-year-old female with a past medical history of Crohn's disease who presented to the emergency department with a chief complaint of abdominal pain on 06/27/21. Patient was found to have a bowel obstruction likely secondary to a Crohn's exacerbation. CT abdomen and pelvis revealing moderate dilation of the small bowel measuring up to 3.2 cm with small amount of free fluid in the pelvis, patient with several areas of stricturing and at least one focal adhesion of the distal small bowel which represents sequelae of inflammatory bowel disease. Patient was admitted under our services with consultation to GI and general surgery. Patient was treated conservatively for small bowel obstruction in attempts to avoid surgical procedure. Patient was placed on total bowel rest and an NG tube placed to low intermittent suction to decompress her bowels. She was started on continuous IV hydration, IV antibiotics with Zosyn and steroids: Solu-Medrol. Patient received 5 day course of IV antibiotics with Zosyn, her Blood cultures showing no growth after 120 hours. After 5 day course of IV steroids with Solu-Medrol, patient was also placed on prednisone taper. Small bowel obstruction clinically resolved as pt began having liquid bowel movements on day 4. NG tube was removed on day 5 and diet was advanced. This morning patient was evaluated and she has been tolerating her low fiber diet and reports continued normal bowel function stating stool is now thicker in consistency. She continues to report full resolution of abdominal pain, nausea, and vomiting. She denies having any other complaints. Vital signs stable. Patient is medically stable for discharge at this time and has been cleared by GI and general surgery. Patient being discharged home on slow prednisone taper decreasing/tapering down 5 mg per week. Patient to follow up outpatient with PCP in 1-2 days and gastroenterology in 3 weeks. Physical exam: Vital signs reviewed and stable. General: Nontoxic, no distress and appears stated age. Derm: Skin warm and dry, normal coloration for ethnicity. Head: Atraumatic, normocephalic and symmetric. Eyes: EOMs intact, no lid lag, and anicteric sclera Mouth: no lip lesions, mucus membranes moist Cardiovascular: regular rate and rhythm with normal S1S2, no murmur, positive posterior tibial pulses bilaterally, and cap refill < 2 seconds. Lungs: Respirations even, regular, and unlabored on room air. Lungs CTA bilaterally, no rhonchi, no rales, no wheezing, and no accessory muscle usage. Abdominal: Soft distended nontender upon palpation. No guarding. Ext: ROM intact. No gross muscle atrophy, no edema, no contractures Neuro: Speech clear, face symmetrical and CN II-XII grossly intact with no noted focal neuro deficits Psych: Alert and oriented to person, place, time, and situation. Appropriate and pleasant affect. A total of 45 minutes of time were spent preparing this complex discharge summary. Patient Condition at Discharge: Stable Plan - Discharge Summary New Discharge Prescriptions: New predniSONE 10 mg PO DAILY #126 tab Pantoprazole [Protonix] 40 mg PO DAILY 30 Days #30 tab Continue Venlafaxine HCl ER [Effexor XR] 150 mg PO DAILY Montelukast [Singulair] 10 mg PO HS Gabapentin [Neurontin] 100 mg PO TID Calcium 600mg (Chewable) 600 mg PO DAILY Multivitamin (Chewable) 1 tab PO DAILY Cyanocobalamin (Vitamin B-12) [Vitamin B-12] 1,000 mcg PO DAILY Aspirin EC [Ecotrin Low Dose] 81 mg PO DAILY Mesalamine [Pentasa] 1,000 mg PO QID Cholecalciferol [Vitamin D3 (25 Mcg = 1000 Iu)] 50 mcg PO BID Ferrous Sulfate [Iron (65 MG Elemental)] 325 mg PO TID Discharge Medication List Aspirin EC [Ecotrin Low Dose] 81 mg PO DAILY 06/27/21 [History] Calcium 600mg (Chewable) 600 mg PO DAILY 06/27/21 [History] Cholecalciferol [Vitamin D3 (25 Mcg = 1000 Iu)] 50 mcg PO BID 06/27/21 [History] Cyanocobalamin (Vitamin B-12) [Vitamin B-12] 1,000 mcg PO DAILY 06/27/21 [History] Ferrous Sulfate [Iron (65 MG Elemental)] 325 mg PO TID 06/27/21 [History] Gabapentin [Neurontin] 100 mg PO TID 06/27/21 [History] Mesalamine [Pentasa] 1,000 mg PO QID 06/27/21 [History] Montelukast [Singulair] 10 mg PO HS 06/27/21 [History] Multivitamin (Chewable) 1 tab PO DAILY 06/27/21 [History] Venlafaxine HCl ER [Effexor XR] 150 mg PO DAILY 06/27/21 [History] predniSONE 10 mg PO DAILY #126 tab 07/01/21 [Rx] Pantoprazole [Protonix] 40 mg PO DAILY 30 Days #30 tab 07/03/21 [Rx] Follow up Appointment(s)/Referral(s): Carol Suazo MD [STAFF PHYSICIAN] - 3 Weeks (Patient to make own follow-up appt. Office currently closed. ) Irving Kebede [Primary Care Provider] - 1-2 days (Patient to make own follow- up appt. Office currently closed.) Patient Instructions/Handouts: Prednisone (By mouth), Pantoprazole (By mouth), Bowel Obstruction (DC) Activity/Diet/Wound Care/Special Instructions: Activity: As tolerated. Take breaks as needed. Diet: Low fat diet Special Instructions: Take all of your medications as directed and remember to keep all of your doctor's appointments and follow-up as needed. Thank you for allowing us to participate in your care, it was truly a pleasure having you for our patient!!! Discharge Disposition: HOME SELF-CARE <Naheed Smith - Last Filed: 07/03/21 17:09> Providers Date of admission: 06/27/21 13:50 Attending physician: John Tiwari MD Consults: 06/27/21 13:51 Consult Physician Urgent Consulting Provider: Andrea Bradshaw Consult Reason/Comments: small bowel obstruction Do you want consulting provider notified?: Already Contacted Consult Physician Urgent Consulting Provider: Carol Suazo Consult Reason/Comments: sbo secondary to adhesions, crohns Do you want consulting provider notified?: Yes Primary care physician: Irving Kebede [facility] Course: I reviewed the documentation as provided by the MANUEL above, who is the original author of this note. I agree with the documented assessment and plan, with the following changes: None
== END 2021-07-03 11:15 | disposition home or self-care (01) | DRG 387 ==
LOC: EC 11:21 → 5NMEDONC 13:50
PROVIDERS: ADMIT Internal Medicine; ATTEND Internal Medicine
PROC: 0D9670Z Drainage of Stomach with Drainage Device, Via Natural or Artificial Opening (ICD-10-PCS; principal; 2021-06-27)
DX: K50.012 Crohn's disease of small intestine with intestinal obstruction (principal); D50.9 Iron deficiency anemia, unspecified; Z20.822 Contact with and (suspected) exposure to COVID-19; E86.0 Dehydration; J45.909 Unspecified asthma, uncomplicated; R73.9 Hyperglycemia, unspecified; T38.0X5A Adverse effect of glucocorticoids and synthetic analogues, initial encounter; Z79.82 Long term (current) use of aspirin; Z79.899 Other long term (current) drug therapy; Z90.49 Acquired absence of other specified parts of digestive tract; Z87.891 Personal history of nicotine dependence; Z87.19 Personal history of other diseases of the digestive system; Z98.890 Other specified postprocedural states
CPT/HCPCS: 36415; 71045; 74021; 74177; 80048; 80053; 81001; 83036; 83605; 83690; 83735; 85025; 85027; 85652; 86140; 87040; 87635; 96361; 96374; 96375; 99285

== ENCOUNTER → 2021-08-18 | Day surgery (SDC) | payer BC ==
[2021-08-18 09:25] VITALS: BP 125/86; PULSE 67; RESP 16; TEMP 98.6
--- NOTE | 2021-08-19 13:25 | MR ---
EXAMINATION TYPE: MR Enterography DATE OF EXAM: 08/18/2021 COMPARISON: Prior MR enterography September 28, 2018. CT abdomen and pelvis June 27, 2021 HISTORY: Crohn's disease CONTRAST: Standard multiplanar, multisequence imaging of the abdomen is performed without and with IV contrast, patient is injected with 7ml mL intravenous Gadavist gadolinium contrast. Oral Volumen and Water was given as per enterography protocol. Bowel: There is adequate fluid distention of stomach without suspicious wall thickening or mural enha ncement. Duodenal sweep show satisfactory distention through the third portion crossover without susp icious eccentric wall thickening or enhancement. There is once again less than optimal distention of small bowel loops without obvious eccentric wall thickening or eccentric mural enhancement. Cecum is in normal position in the right lower quadrant. There is mild to moderate concentric wall thickening involving terminal ileum with poor distention over roughly 4 cm in length. Proximal to this there is a segment of distal ileum that has loss of normal bowel folds coronal image 11 series 201 correspondi ng to a fluid-filled slightly dilated small bowel loop on recent CT. On MRI this fluid-filled bowel l oop measures up to 2.5 cm. Findings have increased in prominence from the 2019 MR enterography. There is stratified enhancement in the terminal ileum in the axial postcontrast image 90 over a short diane th. This does not show significant increased restricted diffusion however. No fistula is clearly iden tified. Colon shows no suspicious eccentric wall thickening. Other: Lung bases are clear. Gallbladder is redemonstrated surgically absent. No biliary dilatation i s present. The liver, spleen, pancreas, and both adrenal glands are normal in size. Suspected small s plenule medial to the posterior spleen axial image 28 series 401 is redemonstrated. There is no hubert rning renal mass or hydronephrosis. Anteverted uterus is redemonstrated. No suspicious adnexal masses currently. Osseous structures remain intact. IMPRESSION: 1. Small focus of acute inflammation at the terminal ileum is thought present with striated mural hyp erenhancement. In addition there appears to be worsening probable stricture in the terminal ileum jus t proximal to this point without upstream dilatation on MRI, there was mild upstream dilatation on re cent CT.
== END ==
LOC: RADMRIMAIN 08:48
PROVIDERS: ATTEND Internal Medicine Gastroenterology
DX: K50.00 Crohn's disease of small intestine without complications (principal)
CPT/HCPCS: 96372; 72197; 74183; J1610; A9585

== ENCOUNTER → 2021-09-07 | Outpatient (CLI) | payer BC ==
[2021-09-07 23:38] LABS: Basophils # (A) 0 X 10*3/uL (0.00-0.10); Basophils % (A) 0 %; Eosinophils # (A) 0 X 10*3/uL (0.04-0.35); Eosinophils % (A) 0 %; HCT 39.7 % (37.2-46.3); HGB 12.2 g/dL (12.0-15.0); Immature Grans, Automated 0.2 %; Lymphocytes # (A) 1.25 X 10*3/uL (0.90-5.00); Lymphocytes % (A) 22.6 %; MCH 30.6 pg (27.0-32.0); MCHC 30.7 g/dL (32.0-37.0); MCV 99.5 fL (80.0-97.0); Mean Platelet Volume 11.1 fL (9.5-12.2); Monocytes # (A) 0.45 X 10*3/uL (0.20-1.00); Monocytes % (A) 8.1 %; NRBC Per 100 WBC 0 /100 WBCS (0.0-0.0); Neutrophils # (A) 3.83 X 10*3/uL (1.80-7.70); Neutrophils % (A) 69.1 %; Platelet Count 239 X 10*3/uL (140-440); RBC 3.99 X 10*6/uL (4.10-5.20); RDW 11.6 % (11.5-14.5); WBC 5.54 X 10*3/uL (4.50-10.00)
[2021-09-07 23:52] LABS: ALT 33 U/L (8-44); AST 23 U/L (13-35); African American GFR (CKD) 91.9 (60.0-200.0); Albumin/Globulin Ratio 1.73 (1.60-3.17); Alkaline Phosphatase 71 U/L (41-126); BUN/Creat Ratio 13.41 Ratio (12.00-20.00); Blood Urea Nitrogen 11.6 mg/dL (9.0-27.0); C Reactive Protein <0.30 mg/dL (0.00-0.80); Calcium 9.2 mg/dL (8.7-10.3); Carbon Dioxide 25.3 mmol/L (20.0-27.5); Chloride 105 mmol/L (96-109); Globulin 2.3 g/dL (1.6-3.3); Glucose 108 mg/dL (70-110); Non-African American GFR(CKD) 79.3 (60.0-200.0); Potassium 4.2 mmol/L (3.5-5.5); Sodium 141 mmol/L (135-145); Total Bilirubin <0.15 mg/dL (0.30-1.20); Total Protein 6.3 g/dL (6.2-8.2)
[2021-09-08 00:09] LABS: Hepatitis B Surface Antigen Nonreactive (Nonreactive); Hepatitis C IgG Antibody Nonreactive (Nonreactive)
[2021-09-08 05:40] LABS: Hepatitis B Surface AB- Quant 3.5 mIU/mL; Hepatitis B Surface Antibody Nonreactive (Nonreactive)
== END | disposition home or self-care (01) ==
LOC: LABWHC1 16:02
PROVIDERS: ATTEND Internal Medicine Gastroenterology
DX: K50.00 Crohn's disease of small intestine without complications (principal)
CPT/HCPCS: 36415; 80053; 85025; 86140; 86480; 86704; 86706; 86803; 87340

== ENCOUNTER → 2021-10-07 | Outpatient (CLI) | payer BC ==
--- NOTE | 2021-10-08 14:41 | MM ---
Reason for exam: screening (asymptomatic). Last mammogram was performed 1 year and 2 months ago. History: Patient is postmenopausal. Took hormonal contraceptives for 1 year 6 months beginning at age 15. Physical Findings: A clinical breast exam by your physician is recommended on an annual basis and results should be correlated with mammographic findings. MG 3D Screening Mammo W/Cad Bilateral CC and MLO view(s) were taken. Prior study comparison: August 12, 2020, bilateral MG 3d screening mammo w/cad. March 05, 2019, bilateral MG 3d screening mammo w/cad. The breast tissue is heterogeneously dense. This may lower the sensitivity of mammography. No significant changes when compared with prior studies. ASSESSMENT: Benign, BI-RAD 2 RECOMMENDATION: Routine screening mammogram of both breasts in 1 year.
== END | disposition home or self-care (01) ==
LOC: RADMAMWWP 09:55
PROVIDERS: ATTEND Obstetrics & Gynecology
DX: Z12.31 Encounter for screening mammogram for malignant neoplasm of breast (principal); Z78.0 Asymptomatic menopausal state
CPT/HCPCS: 77063; 77067

== ENCOUNTER → 2021-11-10 | Outpatient (CLI) | payer BC ==
[2021-11-10 15:45] LABS: HCT 37.7 % (37.2-46.3); HGB 12.3 g/dL (12.0-15.0); MCH 30.8 pg (27.0-32.0); MCHC 32.6 g/dL (32.0-37.0); MCV 94.5 fL (80.0-97.0); Neutrophils % (A) 59.8 %; Platelet Count 182 X 10*3/uL (140-440); RBC 3.99 X 10*6/uL (4.10-5.20); RDW 12.2 % (11.5-14.5)
[2021-11-10 15:46] LABS: Basophils # (A) 0 X 10*3/uL (0.00-0.10); Basophils % (A) 0 %; Eosinophils # (A) 0 X 10*3/uL (0.04-0.35); Eosinophils % (A) 0 %; Immature Grans, Automated 0.2 %; Lymphocytes # (A) 1.37 X 10*3/uL (0.90-5.00); Lymphocytes % (A) 29.8 %; Monocytes # (A) 0.47 X 10*3/uL (0.20-1.00); Monocytes % (A) 10.2 %; NRBC Per 100 WBC 0 /100 WBCS (0.0-0.0); Neutrophils # (A) 2.75 X 10*3/uL (1.80-7.70)
[2021-11-10 16:03] LABS: ALT 22 U/L (8-44); AST 17 U/L (13-35); Albumin 4.1 g/dL (3.8-4.9); Albumin/Globulin Ratio 2.16 (1.60-3.17); Alkaline Phosphatase 69 U/L (41-126); Blood Urea Nitrogen 13.2 mg/dL (9.0-27.0); Calcium 8.9 mg/dL (8.7-10.3); Carbon Dioxide 26.2 mmol/L (20.0-27.5); Chloride 108 mmol/L (96-109); Chol/HDL Ratio 3.17 Ratio; Globulin 1.9 g/dL (1.6-3.3); Glucose 97 mg/dL (70-110); LDL Cholesterol,Calculated 112.2 mg/dL (0.0-131.0); Non-African American GFR(CKD) 87.2 (60.0-200.0); Potassium 4.5 mmol/L (3.5-5.5); Sodium 143 mmol/L (135-145)
[2021-11-10 16:26] LABS: Appearance,Urine Cloudy (Clear); Bilirubin,Urine Negative (Negative); Blood,Urine Trace (Negative); Color,Urine Yellow (Yellow); Ketones,Urine Negative (Negative); Nitrite,Urine Negative (Negative); PH, Urine 5.5 (5.0-8.0); Specific Gravity,Urine 1.023 (1.001-1.030); Urobilinogen,Urine 0.2 (0.2,1.0)
[2021-11-10 16:42] LABS: Bacteria,Urine None Seen /HPF (None Seen); Calcium Oxalate Crystals,Urine Present /LPF (None Seen)
== END | disposition home or self-care (01) ==
LOC: LABWHC1 08:57
PROVIDERS: ATTEND Family Medicine
DX: Z00.00 Encounter for general adult medical examination without abnormal findings (principal); G56.02 Carpal tunnel syndrome, left upper limb; K50.90 Crohn's disease, unspecified, without complications
CPT/HCPCS: 36415; 80053; 80061; 81001; 85025

== ENCOUNTER → 2022-05-23 | Outpatient (CLI) | payer BC ==
[2022-05-23 14:03] LABS: Basophils # (A) 0.01 X 10*3/uL (0.00-0.10); Basophils % (A) 0.2 %; Eosinophils # (A) 0 X 10*3/uL (0.04-0.35); Eosinophils % (A) 0 %; HCT 40.9 % (37.2-46.3); HGB 13.8 g/dL (12.0-15.0); Immature Grans, Automated 0.2 %; Lymphocytes # (A) 1.51 X 10*3/uL (0.90-5.00); Lymphocytes % (A) 29.5 %; MCH 32.7 pg (27.0-32.0); MCHC 33.7 g/dL (32.0-37.0); MCV 96.9 fL (80.0-97.0); Mean Platelet Volume 10.3 fL (9.5-12.2); Monocytes # (A) 0.46 X 10*3/uL (0.20-1.00); NRBC Per 100 WBC 0 /100 WBCS (0.0-0.0); Neutrophils # (A) 3.13 X 10*3/uL (1.80-7.70); Neutrophils % (A) 61.1 %; Platelet Count 200 X 10*3/uL (140-440); RBC 4.22 X 10*6/uL (4.10-5.20); RDW 11.8 % (11.5-14.5); WBC 5.12 X 10*3/uL (4.50-10.00)
[2022-05-23 14:09] LABS: African American GFR (CKD) 87.6 (60.0-200.0); Anion Gap 8.4 mmol/L (10.00-18.00); BUN/Creat Ratio 16.44 Ratio (12.00-20.00); Blood Urea Nitrogen 14.8 mg/dL (9.0-27.0); Carbon Dioxide 27.6 mmol/L (20.0-27.5); Non-African American GFR(CKD) 75.6 (60.0-200.0); Potassium 4.3 mmol/L (3.5-5.5)
== END | disposition home or self-care (01) ==
LOC: LABPAT 09:50
PROVIDERS: ATTEND Orthopaedic Surgery Hand Surgery
DX: Z01.812 Encounter for preprocedural laboratory examination (principal); G56.02 Carpal tunnel syndrome, left upper limb
CPT/HCPCS: 80048; 85025

== ENCOUNTER 2022-06-01 09:29 | Day surgery (SDC) | payer BC ==
[2022-05-30 12:47] VITALS: BMI 27.1
--- NOTE | 2022-05-31 08:53 | P.HPOR ---
History of Present Illness H&P Date: 05/31/22 Chief Complaint: Left carpal tunnel syndrome Subjective: This is a 46 year old female that presents today for follow up evaluation regarding a several year history of progressively worsening left and right hand paresthesias in the thumb, index, middle and ring fingers. They have tried splinting with minimal relief now. She has a right thumb A1 marianna steroid injection which resolved her symptoms since last visit. She denies any inciting event or neck pain and recently underwent and EMG/NCV and is here to discuss results. Physical Examination: LUE: AIN/PIN/Radial/Ulnar/Median motor intact. Radial/Ulnar/Median SILT. 2+/4 Radial/Ulnar pulses palpated. 5/5 APB, 5/5 FDI. Negative Finkelsteins, negative CMC grind, positive Durkan's compression. RUE: AIN/PIN/Radial/Ulnar/Median motor intact. Radial/Ulnar/Median SILT. 2+/4 Radial/Ulnar pulses palpated. 5/5 APB, 5/5 FDI. Negative Finkelsteins, negative CMC grind, positive Durkan's compression. NTTP over thumb A1 marianna with smooth gliding of digit. EMG/NCV B/L UE on 02/25/22 demonstrates moderate carpal tunnel syndrome on right, severe carpal tunnel syndrome on left. Impression: 1.) B/L carpal tunnel syndrome Plan: Diagnosis and treatment options were discussed with the patient. The patient has failed conservative treatment and would like to pursue a left endoscopic vs open carpal tunnel release followed by right endoscopic vs open carpal tunnel release 2 weeks later. Risks and benefits of surgery including bleeding, infection, damage to surrounding tissue, need for further surgery, possible need to convert to open procedure, residual numbness were discussed and the patient wished to go forward with surgery. I anticipate 2 weeks off work for each side for a total of 4 weeks after the initial surgery, this can be extended if needed at first post op appointment. Follow up: 4 weeks post op -César Medellin DO Orthopedic Hand/Upper Extremity Surgeon Past Medical History Past Medical History: Asthma Additional Past Medical History / Comment(s): Asthma/allergies. Crohns, anemia. History of Any Multi-Drug Resistant Organisms: None Reported Past Surgical History: Cholecystectomy, Orthopedic Surgery Additional Past Surgical History / Comment(s): Tear duct surgery, right shoulder surgery. Past Anesthesia/Blood Transfusion Reactions: No Reported Reaction Past Psychological History: Anxiety, Depression Smoking Status: Former smoker Past Alcohol Use History: Occasional Additional Past Alcohol Use History / Comment(s): Quit smoking over 30 yrs ago. Past Drug Use History: None Reported - Past Family History Mother Family Medical History: No Reported History Medications and Allergies Home Medications Medication Instructions Recorded Confirmed Type Calcium 600mg (Chewable) 600 mg PO DAILY 06/27/21 05/30/22 History Cholecalciferol [Vitamin D3 (25 50 mcg PO BID 06/27/21 05/30/22 History Mcg = 1000 Iu)] Cyanocobalamin (Vitamin B-12) 1,000 mcg PO DAILY 06/27/21 05/30/22 History [Vitamin B-12] Ferrous Sulfate [Iron (65 MG 325 mg PO TID 06/27/21 05/30/22 History Elemental)] Gabapentin [Neurontin] 100 mg PO TID 06/27/21 05/30/22 History Montelukast [Singulair] 10 mg PO HS 06/27/21 05/30/22 History Venlafaxine HCl ER [Effexor XR] 150 mg PO QAM 06/27/21 05/30/22 History Calcium Carbonate [Calcium] 600 mg PO DAILY 05/30/22 05/30/22 History Infliximab-Dyyb [Inflectra] 0 mg IV Q60D 05/30/22 05/30/22 History Multivitamins, Thera [Multivitamin 1 tab PO DAILY 05/30/22 05/30/22 History (formulary)] Xolair (Unknown Dose) 1 dose SQ Q30D 05/30/22 05/30/22 History Allergies Allergy/AdvReac Type Severity Reaction Status Date / Time No Known Allergies Allergy Verified 05/30/22 12:33 Physical Examination Osteopathic Statement: *. No significant issues noted on an osteopathic structural exam other than those noted in the History and Physical/Consult.
[~2022-06-01 09:29] MED LIST changes: -GLUCAGON 1 MG/ML VIAL IM STA; +LACTATED RINGERS 1,000 ML IV SCH; +LIDOCAINE 1% (10MG/ML) FOR IV START INTRADERMA PRN; +ONDANSETRON 4 MG/2 ML VIAL IVP ONE; +Pre Op ABX Message 1 EACH MISC MISCELLANE ONE; +fentaNYL (PF) 50 MCG/ML 2 ML AMP IV PRN
[2022-06-01] MEDS ORDERED: LACTATED RINGERS 1,000 ML IV ONE (10:05)
[2022-06-01] MEDS ORDERED: MIDAZOLAM 2 MG/2 ML VIAL ONE (10:46)
[2022-06-01] MEDS ORDERED: LIDOCAINE 2% INJ 20 MG/ML (2 ML VIAL) ONE (10:46)
[2022-06-01] MEDS ORDERED: fentaNYL (PF) 50 MCG/ML 2 ML AMP ONE (10:46)
[2022-06-01] MEDS ORDERED: PROPOFOL 10 MG/ML 20 ML VIAL IV ONE (10:46)
[2022-06-01] MEDS ORDERED: LIDOCAINE 1% INJ 10MG/ML (20 ML MDV) SQ ONE ×2 (10:55)
[2022-06-01] MEDS ORDERED: BUPIVACAINE (PF) 0.5% 30 ML VIAL SQ ONE ×2 (10:55)
[2022-06-01 11:21] VITALS: TEMP 97
[2022-06-01 11:31] VITALS: RESP 16
[2022-06-01 12:15] VITALS: BP 126/77; PULSE 59
--- NOTE | 2022-06-01 16:38 | P.OP ---
Date of Procedure: 06/01/22 Preoperative Diagnosis: Left carpal tunnel syndrome Postoperative Diagnosis: Left carpal tunnel syndrome Procedure(s) Performed: Left endoscopic carpal tunnel release Anesthesia: MAC Surgeon: César Medellin Post Closing Specialist #1: Ilya Colmenares Estimated Blood Loss (ml): 0 Pathology: none sent Condition: stable Disposition: PACU Description of Procedure: This is a 46 year old female who presents today for a left endoscopic carpal tunnel release after having failed conservative treatment in the past. Risks and benefits of surgery were discussed with the patient including bleeding, damage to surrounding tissue, infection, need to convert to open procedure, need for further surgery as well as risks of anesthesia including pulmonary embolism and even and the patient wished to proceed with surgical intervention. The patients was seen in the pre-operative area by myself. Consent and H&P were completed and updated. The correct extremity was marked in the pre-operative area by myself and all other questions were answered. Operative Narrative: The patient was brought to the operating room by the department of anesthesia. They remained on the portable stretcher and a rolling hand table was brought to the side of the operative extremity. Pre-operative time out was performed indicating the correct patient, procedure and laterality. All in the room agreed. The patient was then drifted off to sleep by the department of anesthesia. MAC anesthesia was utilized and a 50:50 mixture of 1% Lidocaine and 0.5% bupivacaine was injected into the subcutaneous tissues of the palmar skin, 7ccs total. A nonsterile tourniquet was then applied to the operative extremity and the left upper extremity was then prepped and draped in normal sterile fashion. The operative extremity was the exsanguinated with an esmarch bandage and the tourniquet was inflated to 250mmHg. 15 blade scalpel was utilized to make a transverse incision on the palmar skin just ulnar to the palmaris longus tendon at the level of the distal wrist crease. Ragnell retractor was then placed radially and blunt dissection was performed to reveal the distal forearm fascia. This was lifted with fine Ken pick ups and Littler tenotomy scissors were then used to open the forearm fascia transversely and a double skin hook was then placed. Hamate finder was placed into the carpal tunnel and then sequential sized dilators were inserted followed by the synovial elevator to separate the flexor tenosynovium from the undersurface of the transverse carpal ligament and a washboard texture was felt. The MicroAire endoscopic carpal tunnel release system gun was the then inserted into the carpal tunnel hugging the deep portion of the transverse carpal ligament in line with the base of the ring finger. Transverse fibers of the ligament were directly visualized. Pressure was applied on the palm to reveal the distal extent of the transverse carpal ligament. The blade was then deployed and the distal half of the transverse carpal ligament was released. The scope was then brought distal again and remaining transverse fibers were incised with the blade. The proximal half of the transverse carpal ligament was then divided and again the scope was advanced distal and remaining transverse fibers were incised with the blade. The radial and ulnar leaflets were directly visualized and mobile consistent with complete release. Tenotomy scissors were then utiliz ed to release the remaining distal forearm fascia under direct visualization taking care to preserve the palmar cutaneous branch of the median nerve. Skin closure was performed with interrupted 4-0 Monocryl suture followed by Mastisol and steri strips. Sterile dressing was applied consisting of adaptic, 4x4s, Webril, and an rl bandage. Tourniquet was let down and the hand immediately was well perfused. The patient was then woken by the department of anesthesia and transferred to PACU in stable condition. Ilya DIEZ was present for the case in its entirety and assisted in major portions of the case and protection of vital neurovascular structures. César Medellin D.O. Orthopedic Hand/Upper Extremity Surgeon
== END 2022-06-01 12:33 | disposition home or self-care (01) ==
LOC: OR 09:29
PROVIDERS: ATTEND Orthopaedic Surgery Hand Surgery
DX: G56.02 Carpal tunnel syndrome, left upper limb (principal); J45.909 Unspecified asthma, uncomplicated; D64.9 Anemia, unspecified; Z87.891 Personal history of nicotine dependence; Z79.899 Other long term (current) drug therapy; Z87.19 Personal history of other diseases of the digestive system; F32.A Depression, unspecified; F41.9 Anxiety disorder, unspecified; Z79.82 Long term (current) use of aspirin; Z79.51 Long term (current) use of inhaled steroids
CPT/HCPCS: 29848; J2250; J2405; J2001 ×2; J3010; J2704

== ENCOUNTER 2022-06-15 07:10 | Day surgery (SDC) | payer BC ==
[2022-06-13 09:19] VITALS: BMI 27.1
--- NOTE | 2022-06-14 12:15 | P.HPOR ---
History of Present Illness H&P Date: 06/14/22 Chief Complaint: Left carpal tunnel syndrome Subjective: This is a 46 year old female that presents today for follow up evaluation regarding a several year history of progressively worsening left and right hand paresthesias in the thumb, index, middle and ring fingers. They have tried splinting with minimal relief now. She has a right thumb A1 marianna steroid injection which resolved her symptoms since last visit. She denies any inciting event or neck pain and recently underwent and EMG/NCV and is here to discuss results. Physical Examination: LUE: AIN/PIN/Radial/Ulnar/Median motor intact. Radial/Ulnar/Median SILT. 2+/4 Radial/Ulnar pulses palpated. 5/5 APB, 5/5 FDI. Negative Finkelsteins, negative CMC grind, positive Durkan's compression. RUE: AIN/PIN/Radial/Ulnar/Median motor intact. Radial/Ulnar/Median SILT. 2+/4 Radial/Ulnar pulses palpated. 5/5 APB, 5/5 FDI. Negative Finkelsteins, negative CMC grind, positive Durkan's compression. NTTP over thumb A1 marianna with smooth gliding of digit. EMG/NCV B/L UE on 02/25/22 demonstrates moderate carpal tunnel syndrome on right, severe carpal tunnel syndrome on left. Impression: 1.) B/L carpal tunnel syndrome Plan: Diagnosis and treatment options were discussed with the patient. The patient has failed conservative treatment and would like to pursue a left endoscopic vs open carpal tunnel release followed by right endoscopic vs open carpal tunnel release 2 weeks later. Risks and benefits of surgery including bleeding, infection, damage to surrounding tissue, need for further surgery, possible need to convert to open procedure, residual numbness were discussed and the patient wished to go forward with surgery. I anticipate 2 weeks off work for each side for a total of 4 weeks after the initial surgery, this can be extended if needed at first post op appointment. Follow up: 4 weeks post op -César Medellin DO Orthopedic Hand/Upper Extremity Surgeon Past Medical History Past Medical History: Asthma Additional Past Medical History / Comment(s): crohns, anemia, History of Any Multi-Drug Resistant Organisms: None Reported Past Surgical History: Cholecystectomy Additional Past Surgical History / Comment(s): L hand carpal tunnel Past Anesthesia/Blood Transfusion Reactions: No Reported Reaction Smoking Status: Former smoker - Past Family History Mother Family Medical History: No Reported History Medications and Allergies Home Medications Medication Instructions Recorded Confirmed Type Calcium 600mg (Chewable) 600 mg PO DAILY 06/27/21 06/13/22 History Cholecalciferol [Vitamin D3 (25 50 mcg PO BID 06/27/21 06/13/22 History Mcg = 1000 Iu)] Cyanocobalamin (Vitamin B-12) 1,000 mcg PO DAILY 06/27/21 06/13/22 History [Vitamin B-12] Ferrous Sulfate [Iron (65 MG 325 mg PO TID 06/27/21 06/13/22 History Elemental)] Gabapentin [Neurontin] 100 mg PO TID 06/27/21 06/13/22 History Montelukast [Singulair] 10 mg PO HS 06/27/21 06/13/22 History Venlafaxine HCl ER [Effexor XR] 150 mg PO QAM 06/27/21 06/13/22 History Calcium Carbonate [Calcium] 600 mg PO DAILY 05/30/22 06/13/22 History Infliximab-Dyyb [Inflectra] 0 mg IV Q60D 05/30/22 06/13/22 History Multivitamins, Thera [Multivitamin 1 tab PO DAILY 05/30/22 06/13/22 History (formulary)] Xolair (Unknown Dose) 1 dose SQ Q30D 05/30/22 06/13/22 History Aspirin 81 mg PO DAILY 06/13/22 06/13/22 History Allergies Allergy/AdvReac Type Severity Reaction Status Date / Time No Known Allergies Allergy Verified 06/13/22 09:23 Physical Examination Osteopathic Statement: *. No significant issues noted on an osteopathic structural exam other than those noted in the History and Physical/Consult.
[~2022-06-15 07:10] MED LIST changes: -LACTATED RINGERS 1,000 ML IV SCH; -LIDOCAINE 1% (10MG/ML) FOR IV START INTRADERMA PRN; -ONDANSETRON 4 MG/2 ML VIAL IVP ONE; -fentaNYL (PF) 50 MCG/ML 2 ML AMP IV PRN
[2022-06-15] MEDS ORDERED: DEXAMETHASONE SOD PHOSPHATE 4 MG/ML 1 ML VIAL IV ONE (07:39)
[2022-06-15] MEDS ORDERED: ONDANSETRON 4 MG/2 ML VIAL IVP ONE (07:39)
[2022-06-15] MEDS ORDERED: SCOPOLAMINE 1 MG/72 HR PATCH TRANSDERM ONE (07:39)
[2022-06-15] MEDS ORDERED: LIDOCAINE 1% (10MG/ML) FOR IV START INTRADERMA PRN (07:39)
[2022-06-15] MEDS ORDERED: LACTATED RINGERS 1,000 ML IV SCH (07:39)
[2022-06-15] MEDS ORDERED: HYDROmorphone 0.5 MG/0.5 ML SYRINGE IVP PRN (07:39)
[2022-06-15] MEDS ORDERED: BUPIVACAINE (PF) 0.5% 30 ML VIAL SQ ONE ×2 (07:52→08:20)
[2022-06-15] MEDS ORDERED: LIDOCAINE 1% INJ 10MG/ML (10 ML MDV) SQ ONE ×2 (07:52→08:20)
[2022-06-15 08:08] VITALS: TEMP 97
[2022-06-15] MEDS ORDERED: PROPOFOL 10 MG/ML 20 ML VIAL IV ONE (08:14)
[2022-06-15] MEDS ORDERED: fentaNYL (PF) 50 MCG/ML 2 ML AMP ONE (08:14)
[2022-06-15] MEDS ORDERED: MIDAZOLAM 2 MG/2 ML VIAL ONE (08:14)
--- NOTE | 2022-06-15 08:50 | P.OP ---
Date of Procedure: 06/15/22 Preoperative Diagnosis: Right carpal tunnel syndrome Postoperative Diagnosis: Right carpal tunnel syndrome Procedure(s) Performed: Right endoscopic carpal tunnel release Anesthesia: MAC Surgeon: César Medellin Estimated Blood Loss (ml): 0 Pathology: none sent Condition: stable Disposition: PACU Description of Procedure: This is a 47 year old female who presents today for a right endoscopic carpal tunnel release after having failed conservative treatment in the past. Risks and benefits of surgery were discussed with the patient including bleeding, damage to surrounding tissue, infection, need to convert to open procedure, need for further surgery as well as risks of anesthesia including pulmonary embolism and even and the patient wished to proceed with surgical intervention. The patients was seen in the pre-operative area by myself. Consent and H&P were completed and updated. The correct extremity was marked in the pre-operative area by myself and all other questions were answered. Operative Narrative: The patient was brought to the operating room by the department of anesthesia. They remained on the portable stretcher and a rolling hand table was brought to the side of the operative extremity. Pre-operative time out was performed indicating the correct patient, procedure and laterality. All in the room agreed. The patient was then drifted off to sleep by the department of anesthesia. MAC anesthesia was utilized and a 50:50 mixture of 1% Lidocaine and 0.5% bupivacaine was injected into the subcutaneous tissues of the palmar skin, 8ccs total. A nonsterile tourniquet was then applied to the operative extremity and the right upper extremity was then prepped and draped in normal sterile fashion. The operative extremity was the exsanguinated with an esmarch bandage and the tourniquet was inflated to 250mmHg. 15 blade scalpel was utilized to make a transverse incision on the palmar skin just ulnar to the palmaris longus tendon at the level of the distal wrist crease. Ragnell retractor was then placed radially and blunt dissection was performed to reveal the distal forearm fascia. This was lifted with fine Ken pick ups and Littler tenotomy scissors were then used to open the forearm fascia transversely and a double skin hook was then placed. Hamate finder was placed into the carpal tunnel and then sequential sized dilators were inserted followed by the synovial elevator to separate the flexor tenosynovium from the undersurface of the transverse carpal ligament and a washboard texture was felt. The MicroAire endoscopic carpal tunnel release system gun was the then inserted into the carpal tunnel hugging the deep portion of the transverse carpal ligament in line with the base of the ring finger. Transverse fibers of the ligament were directly visualized. Pressure was applied on the palm to reveal the distal extent of the transverse carpal ligament. The blade was then deployed and the distal half of the transverse carpal ligament was released. The scope was then brought distal again and remaining transverse fibers were incised with the blade. The proximal half of the transverse carpal ligament was then divided and again the scope was advanced distal and remaining transverse fibers were in cised with the blade. The radial and ulnar leaflets were directly visualized and mobile consistent with complete release. Tenotomy scissors were then utilized to release the remaining distal forearm fascia under direct visualization taking care to preserve the palmar cutaneous branch of the median nerve. Skin closure was performed with interrupted 4-0 Monocryl suture followed by Mastisol and steri strips. Sterile dressing was applied consisting of adaptic, 4x4s, Webril, and an rl bandage. Tourniquet was let down and the hand immediately was well perfused. The patient was then woken by the department of anesthesia and transferred to PACU in stable condition. César Medellin D.O. Orthopedic Hand/Upper Extremity Surgeon
[2022-06-15 09:17] VITALS: BP 122/71; PULSE 63; RESP 16
== END 2022-06-15 09:18 | disposition home or self-care (01) ==
LOC: OR 07:10
PROVIDERS: ATTEND Orthopaedic Surgery Hand Surgery
DX: G56.01 Carpal tunnel syndrome, right upper limb (principal); J45.909 Unspecified asthma, uncomplicated; Z90.49 Acquired absence of other specified parts of digestive tract; Z87.891 Personal history of nicotine dependence; Z98.890 Other specified postprocedural states; Z79.82 Long term (current) use of aspirin; Z79.84 Long term (current) use of oral hypoglycemic drugs; Z79.02 Long term (current) use of antithrombotics/antiplatelets; Z79.891 Long term (current) use of opiate analgesic; Z79.52 Long term (current) use of systemic steroids; Z79.899 Other long term (current) drug therapy
CPT/HCPCS: 29848; J2250; J1100; J2405; J3010; J2001; J2704

== ENCOUNTER → 2022-10-10 | Outpatient (CLI) | payer BC ==
[2022-10-10 16:23] LABS: ALT 46 U/L (8-44); AST 31 U/L (13-35); Albumin/Globulin Ratio 1.48 (1.60-3.17); Alkaline Phosphatase 89 U/L (41-126); BUN/Creat Ratio 17.56 Ratio (12.00-20.00); Blood Urea Nitrogen 15.8 mg/dL (9.0-27.0); Carbon Dioxide 28.3 mmol/L (20.0-27.5); Chloride 103 mmol/L (96-109); Chol/HDL Ratio 2.91 Ratio; Globulin 2.7 g/dL (1.6-3.3); Glucose 103 mg/dL (70-110); Iron 91 ug/dL (50-170); LDL Cholesterol,Calculated 87.2 mg/dL (0.0-131.0); Non-African American GFR(CKD) 75.1 (60.0-200.0); Potassium 3.9 mmol/L (3.5-5.5); Sodium 140 mmol/L (135-145); Total Iron Binding Capacity 290 ug/dL (228-460); Total Protein 6.7 g/dL (6.2-8.2)
[2022-10-10 16:49] LABS: Basophils # (A) 0.01 X 10*3/uL (0.00-0.10); Basophils % (A) 0.2 %; Eosinophils # (A) 0 X 10*3/uL (0.04-0.35); Eosinophils % (A) 0 %; HCT 40.1 % (37.2-46.3); HGB 13.1 g/dL (12.0-15.0); Immature Grans, Automated 0.2 %; Lymphocytes # (A) 0.92 X 10*3/uL (0.90-5.00); Lymphocytes % (A) 22.1 %; MCH 32.3 pg (27.0-32.0); MCHC 32.7 g/dL (32.0-37.0); MCV 98.8 fL (80.0-97.0); Mean Platelet Volume 11.2 fL (9.5-12.2); Monocytes # (A) 0.38 X 10*3/uL (0.20-1.00); Monocytes % (A) 9.1 %; NRBC Per 100 WBC 0 /100 WBCS (0.0-0.0); Neutrophils # (A) 2.85 X 10*3/uL (1.80-7.70); Neutrophils % (A) 68.4 %; Platelet Count 196 X 10*3/uL (140-440); RBC 4.06 X 10*6/uL (4.10-5.20); RDW 11.7 % (11.5-14.5); WBC 4.17 X 10*3/uL (4.50-10.00)
--- NOTE | 2022-10-11 08:14 | MM ---
Reason for Exam: Screening (asymptomatic). Last screening mammogram was performed 12 month(s) ago. Patient History: Menarche at age 11. First Full-Term at age 17. Postmenopausal. Hormonal Contraceptives for 1 year, 6 months, from age 15 until age 16. Risk Values: Neha 5 year model risk: 0.7%. NCI Lifetime model risk: 6.6%. Prior Study Comparison: 03/05/2019 Bilateral Screening Mammogram, [facility]. 08/12/2020 Bilateral Screening Mammogram, [facility]. 10/07/2021 Bilateral Screening Mammogram, [facility]. Tissue Density: There are scattered fibroglandular densities. Findings: Analyzed By CAD. Pattern appears stable. No suspicious groups of microcalcifications, spiculated or lobular masses, architectural distortion or other secondary signs of malignancy are mammographically apparent. Overall Assessment: Benign, BI-RAD 2 Management: Screening Mammogram of both breasts in 1 year. A negative mammogram report should not preclude additional follow up of suspicious palpable abnormalities. Patient should continue monthly self breast exam. A clinical breast exam by your physician is recommended on an annual basis and results should be correlated with mammographic findings. Electronically signed and approved by: Hector Chandler D.O. Radiologis
== END | disposition home or self-care (01) ==
LOC: RADMAMWWP 09:26
PROVIDERS: ATTEND Family Medicine
DX: Z12.31 Encounter for screening mammogram for malignant neoplasm of breast (principal); Z78.0 Asymptomatic menopausal state
CPT/HCPCS: 36415; 77063; 77067; 80053; 80061; 82306; 82607; 82746; 83036; 83540; 83550; 84443; 85025

== ENCOUNTER 2022-12-28 10:32 | Day surgery (SDC) | payer BC ==
[2022-12-21 15:44] VITALS: BMI 26.9
[~2022-12-28 10:32] MED LIST changes: +LACTATED RINGERS 1,000 ML IV SCH; +LIDOCAINE 1% (10MG/ML) FOR IV START INTRADERMA PRN; -Pre Op ABX Message 1 EACH MISC MISCELLANE ONE
[2022-12-28 10:52] VITALS: TEMP 98.2
[2022-12-28] MEDS ORDERED: LACTATED RINGERS 1,000 ML IV ONE (10:52)
[2022-12-28] MEDS ORDERED: PROPOFOL 10 MG/ML 20 ML VIAL IV ONE (11:51)
--- NOTE | 2022-12-28 12:05 | P.PCN ---
Date of Procedure: 12/28/22 Procedure(s) Performed: BRIEF HISTORY: Patient is a 47-year-old pleasant white female scheduled for an elective colonoscopy as a part of evaluation long-standing history of Crohn's ileitis diagnosed 15 years ago. She had multiple episodes of the small bowel obstruction secondary to terminal ileitis and she was started on an Inflectra infusions since July 2021 and has been in clinical remission. Last colonoscopy was 5 years ago PROCEDURE PERFORMED: Colonoscopy biopsy. PREOPERATIVE DIAGNOSIS: History of Crohn's ileitis. IV sedation per Anesthesia. PROCEDURE: After informed consent was obtained, the patient, was brought into the endoscopy unit. IV sedation was administered by Anesthesia under continuous monitoring. Digital rectal examination was normal. Initially the Olympus CF-160 flexible video colonoscope was then inserted in the rectum, gradually advanced into the cecum without any difficulty. Careful examination was performed as the scope was gradually being withdrawn. Ileocecal valve and the appendiceal orifice were visualized and appeared normal. Prep was excellent. The ileocecal valve appeared slightly deformed with a small polyp on it which was biopsied. I attempted to pass the scope into the terminal ileum but there was some mild narrowing of the ileocecal valve noted. The visualized part of the terminal ileum appeared normal. Mucosa of the cecum, ascending colon, transverse colon, descending colon, sigmoid colon, and rectum appeared normal. Retroflexion was pe rformed in the rectum and no lesions were seen. The patient tolerated the procedure well. IMPRESSION: Deformed, narrowed ileocecal valve but no evidence of active Crohn's disease Visualized parts of the terminal ileum appeared normal Normal colon from rectum to cecum with no evidence of colorectal neoplasia RECOMMENDATIONS: Findings of this examination were discussed with the patient as well as a family. She was advised to follow with the biopsy result. She will continue with her current medications and will plan a repeat colonoscopy in 5 years..
[2022-12-28 12:37] VITALS: BP 123/77; PULSE 68; RESP 16
== END 2022-12-28 12:45 | disposition home or self-care (01) ==
LOC: ORWHC2ENDO 10:32
PROVIDERS: ATTEND Internal Medicine Gastroenterology
DX: Z12.11 Encounter for screening for malignant neoplasm of colon (principal); K64.5 Perianal venous thrombosis; J45.909 Unspecified asthma, uncomplicated; Z79.899 Other long term (current) drug therapy
CPT/HCPCS: 88305; 45380; J2704

== ENCOUNTER → 2024-03-29 | Outpatient (CLI) | payer BC ==
--- NOTE | 2024-03-29 11:55 | MM ---
Reason for Exam: Screening (asymptomatic). Last mammogram was performed 1 year(s) and 6 month(s) ago. Patient History: Menarche at age 11. First Full-Term at age 17. Postmenopausal. Hormonal Contraceptives for 1 year, 6 months, from age 15 until age 16. Risk Values: Neha 5 year model risk: 0.7%. NCI Lifetime model risk: 6.5%. Prior Study Comparison: 08/12/2020 Bilateral Screening Mammogram, [facility]. 10/07/2021 Bilateral Screening Mammogram, [facility]. 10/10/2022 Bilateral MG 3D screening mammo w/cad, [facility]. Tissue Density: There are scattered areas of fibroglandular density. Findings: Analyzed By CAD. Right breast: There is no suspicious group of microcalcifications or new suspicious mass. Left breast: There is no suspicious group of microcalcifications or new suspicious mass. Overall Assessment: Negative, BI-RAD 1 Management: Screening Mammogram of both breasts in [address] [facility] will attempt to contact patient to return for supplemental views and ultrasound if indicated. Patient should continue monthly self-breast exams. A clinical breast exam by your physician is recommended on an annual basis. This exam should not preclude additional follow-up of suspicious palpable abnormalities. Note on Neha scores and lifetime risk: 1. A Neha score greater than 3% is considered moderate risk. If this is the case, consider specialist referral to assess eligibility for a risk reducing agent. 2. If overall lifetime risk for the development of breast cancer is 20% or higher, the patient may qualify for future screening with alternating mammogram and breast MRI. [facility], , 03/29/2024 11:52 AM. Electronically signed and approved by: Andrea Huff DO
== END | disposition home or self-care (01) ==
LOC: RADMAMWWP 09:19
PROVIDERS: ATTEND Family Medicine
DX: Z12.31 Encounter for screening mammogram for malignant neoplasm of breast (principal); Z78.0 Asymptomatic menopausal state; R92.323 Mammographic fibroglandular density, bilateral breasts
CPT/HCPCS: 77063; 77067